=== PATIENT | male | born 1945 | race Caucasian/White ===

== ENCOUNTER 2021-01-20 08:45 | Outpatient (REF) | payer OTHER, SELFPAY ==
--- NOTE | ~2021-01-20 | XR_ITS ---
EXAMINATION: XR SHOULDER, RIGHT CLINICAL INFORMATION: Shoulder pain COMPARISON: None TECHNIQUE: Three views of the right shoulder. FINDINGS: No fracture or dislocation. The glenohumeral joint is well aligned. Mild joint space narrowing with small osteophytes present. The acromioclavicular joint appears intact. The visualized lung is clear. The visualized ribs are intact. 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
== END 2021-01-20 08:46 | disposition home or self-care (01) ==
LOC: HO.HOSX 08:45
PROVIDERS: Visit Provider Orthopaedic Surgery
DX: M19.011 Primary osteoarthritis, right shoulder (principal)
CPT/HCPCS: 20600; 20605; 73030; 99212; J1100

== ENCOUNTER 2025-06-04 08:57 | Outpatient (AMB) | payer OTHER, SELFPAY ==
--- OUTSIDE RECORDS SUMMARY | 2025-01-25 10:30 | XMS_ITS | Encounter Summary ---
Author Name [facility] [facility] [place] Address [address] [place] [id number] Care Team Providers Care Heat Treating Bluer Name Role Phone CHRIS SENA Primary Care [...] Name Patient's Relationship to Policy Multani [facility] (WNR) MEDICARE (M) [employer] (WNR) Nov 15, 2016 [id number] ADRIENNE PUENTES ON PATIENT [facility] (WNR) MEDICARE ADVANTAGE SD PPOD VALUE DB DS Nov 15, 2017 [id number] [phone] ADRIENNE PUENTES ON PATIENT Selected Encounter This section includes the information on record at [place] for the Encounter. Date/Time Encounter Type Encounter Description Reason Provider Source Jan 25, 2025 02:30 PM OFFICE O/P EST MOD 30 MIN DERMATOLOGY ICD-10-CM L21.8 Other seborrheic dermatitis VANCE WOMACK IHAnju Encounter Template Text not used by [facility] Assessments - Encounter Diagnoses This section includes the primary and secondary diagnoses documented for the Encounter. Date/Time Primary/Secondary Diagnosis Diagnosis Name Provider Source Jan 25, 2025 02:53 PM PRIMARY Other seborrheic dermatitis VANCE WOMACK [place] [facility] [place] [facility] Jan 25, 2025 02:53 PM SECONDARY Psoriasis vulgaris VANCE WOMACK [facility] [place] [facility] Plan of Treatment: Future Appointments (+ 6 months) and Future Tests (+/- 45 days) The Plan of Treatment section includes future care activities for the [facility] This section includes future appointments and future orders which are active, pending or scheduled. Future Appointments This section includes appointments that were scheduled to occur 6 months from the date of the Encounter, up to a maximum of 20 appointments. The data comes from all [place] treatment facilities. Appointment Date/Time Appointment Type Appointme nt Facility Name Feb 13, 2025 01:00 PM AMBULATORY - MEDICINE [facility] Feb 22, 2025 08:30 AM AMBULATORY - MEDICINE [place] [facility] [place] [facility] Mar 02, 2025 01:00 PM AMBULATORY - MEDICINE [place] [facility] [place] [facility] Mar 06, 2025 03:00 PM AMBULATORY - PSYCHIATRY [facility] March 16, 2025 11:30 AM AMBULATORY - MEDICINE [facility] April 03, 2025 09:00 AM AMBULATORY - NONE [place] [facility] [place] [facility] Apr 17, 2025 03:00 PM AMBULATORY - PSYCHIATRY [facility] May 01, 2025 08:00 AM AMBULATORY - MEDICINE [place] [facility] [place] [facility] Jun 04, 2025 09:00 AM AMBULATORY - MEDICINE [place] [facility] [place] [facility] Jul 12, 2025 11:30 AM AMBULATORY - MEDICINE [place] [facility] [place] [facility] Jul 20, 2025 09:30 AM AMBULATORY - MEDICINE [facility] Lab Results: +/- 30 days of the encounter This section includes the Chemistry and Hematology Lab Results on record with [place] for the patient. Radiology Reports and Pathology Reports are provided separately, in subsequent sections. Lab Results This section contains the Chemistry/Hematology Results that were resulted 30 days before or 30 daysafter the date of the Encounter. Date/Time Source Result Type Result - Unit Interpretation Reference Range Specimen Type Comment Feb 13, 2025 01:48 PM [place] VITAMIN D (25-OH) SERUM Specimen Type : SERUM No comment entered. Ordering Provider: GARRICK STINSON Report Released Date/Time: Feb 13, 2025 01:44 PM Reporting Lab: [address] [address] Performing Lab: [address] [address] VITAMIN D (25-OH) 44 ng/mL 20-50 Feb 13, 2025 01:48 PM [place] BASIC METABOLIC PANEL (non-fasting) SERUM Specimen Type: SERUM No comment entered. Ordering Provider: GARRICK STINSON Report Released Date/Time: Feb 13, 2025 01:44 PM Reporting Lab: [address] [address] Performing Lab: [address] [address] [facility] NITROGEN 14 mg/dL 7-25 GLUCOSE 298 mg/dL H 65-100 SODIUM 136 mmol/L 135-145 POTASSIUM 4.7 mmol/L 3.5-5.0 CHLORIDE 105 mmol/L 100-110 CO2 23 meq/L 20-30 CALCIUM 9.1 mg/dL 8.5-10.2 CREATININE, Serum 0.70 mg/dL 0.50-1.40 eGFR(CKD-EPI 2020) >90 mL/min >60 Feb 13, 2025 01:48 PM [place] LIPID PANEL, NON FASTING SERUM Specim en Type: SERUM No comment entered. Ordering Provider: GARRICK STINSON Report Released Date/Time: Feb 13, 2025 01:44 PM Reporting Lab: [address] [phone] Performing Lab: [address] [address] CHOLESTEROL 106 mg/dL TRIGLYCERIDE 124 mg/dL 0-150 LDL calculated 35 mg/dL 0-129 CHOL/HDL 2.3 HDL CHOLESTEROL 46 mg/dL 40-60 Feb 13, 2025 01:48 PM [place] MICROALBUMIN CREATININE RATIO PANEL URINE Specimen Type: URINE No comment entered. Ordering Provider: GARRICK STINSON Report Released Date/Time: Feb 13, 2025 01:44 PM Reporting Lab: [facility] [address] [address] Performing Lab: [facility] [address] [address] MICROALBUMIN/CREATININE RATIO 54.1 mg/g H 0-29.9 MICROALBUMIN,QUANTITATIVE 3.8 mg/dL RR U [place] CREATININE URINE 70.21 mg/dL Feb 13, 2025 01:48 PM [place] TSH SERUM Sp ecimen Type: SERUM No comment entered. Ordering Provider: GARRICK STINSON Report Released Date/Time: Feb 13, 2025 01:44 PM Reporting Lab: [facility] [address] [address] Performing Lab: [address] [address] TSH 0.54 u[IU]/mL 0.35-5.00 Feb 13, 2025 01:48 PM [place] HEMOGLOBIN A1C PANEL BLOOD Specimen T ype: [...] Feb 13, 2025 01:44 PM Reporting Lab: [address] [address] Performing Lab: [address] [address] HEMOGLOBIN A1C 6.8 H 4.0-5.6 Feb 13, 2025 01:48 PM [place] LIVER FUNCTION SERUM Specimen Type: SERUM No comment entered. Ordering Provider: GARRICK STINSON Report Released Date/Time: Feb 13, 2025 01:44 PM Reporting Lab: [address] [address] Performing Lab: [address] [address] PROTEIN,TOTAL 7.1 g/dL 6.0-8.3 ALBUMIN 3.7 g/dL 3.5-5.0 ALKALINE PHOSPHATASE 123 U/L 40-150 AST 17 U/L 5-34 ALT 28 U/L BILIRUBIN, TOTAL 0.5 mg/dL 0.2-1.2 Feb 13, 2025 01:48 PM [place] CBC AND DIFF (AUTO) BLOOD Specimen Ty pe: BLOOD No comment entered. Ordering Provider: GARRICK STINSON Report Released Date/Time: Feb 13, 2025 01:44 PM Reporting Lab: [facility] [address] [facility] [address] Performing Lab: [facility] [address] [facility] [address] WBC 8.54 10*3/uL 4.50-11.00 RBC 4.83 10*6/uL [...] and tobacco- related health factors from the [place] facility where the Encounter took place. Current Smoking Status This section includes the most current smoking, or tobacco-related health factor, from the [place] facility where the Encounter took place. Date/Time Current Smoking Status Comment Facil ity Aug 13, 2023 11:00 AM VA-TOBACCO FORMER USER [facility] Tobacco Use History This section includes a history of the smoking, or tobacco-related health factors, that were collected on or before the date of the Encounter. The data comes from the [place] facility where the Encounter took place. Date/Time Smoking Status/Tobacco Use Comment F acility Aug 13, 2023 11:00 AM [place]-TOBACCO QUIT 15 YRS OR MORE [facility] Encounter Notes: All associated encounter notes This section contains the clinical notes associated to the Encounter. Date/Time Encounter Note(s) Provider Source Jan 25, 2025 02:26 PM DERMATOLOGY OUTPATIENT NOTE: LOCAL TITLE: DERMATOLOGY CLINIC NOTE STANDARD TITLE: DERMATOLOGY OUTPATIENT NOTE DATE OF NOTE: JAN 25, 2025@14:26 ENTRY DATE: JAN 25, 2025@14:26:16 AUTHOR: JACOBO WOMACK EXP COSIGNER: URGENCY: STATUS: COMPLETED JAN 25, 2025 ANALILIA PUENTES Aug 79 PATIENT PHONE - Patient here for FOLLOW UP CHIEF COMPLAINT: Psoriasis, Seborrheic Dermatitis HPI: Reviewed records from last Dermatology visit: 05/11/23; PsO stable w/prn betamethaone; [facility] stable w/keto 2% cream and prn desonide 0.05% cream. reports redness and scaling on nasolabial folds. He reports some improvement with use of desonide. denies any other new/changing/bleeding/non-heali ng lesions. REVIEW OF SYSTEMS: Constitutional-neg Skin/Hair/Nails-see HPI DermHx: -Denies h/o MM or NMSC -PsO - on topicals Family Hx: Denies known fam h/o MM PastMedHx: Reviewed. History of Sun Exposure/Sunburns: Yes, none blistering Active Outpatient Medications (including Supplies): Active Outpatient Medications Status 1) ACCU-CHEK GUIDE (GLUCOSE) TEST STRIP USE 1 STRIP TO TEST ACTIVE BLOOD SUGARS THREE TIMES A DAY 2) BRIEF,PROTECTION PLUS LARGE #[id number] USE ONE BRIEF ACTIVE (S) DIRECTED SIX TIMES A DAY 3) BRIEF,PROTECTIVE SUPER ABS LG ATTENDS USE 1 BRIEF ACTIVE DIRECTED SIX TIMES A DAY Indication: URINARY AND BOWEL INCONTINENCE 4) CARBOXYMETHYLCELLULOSE NA 0.5% OPH SOLN INSTILL 1 DROP INTO ACTIVE EACH EYE FOUR TIMES DAILY NEEDED Indication: FOR DRY EYE 5) DESONIDE 0.05% CREAM APPLY A SMALL AMOUNT TOPICALLY TWICE ACTIVE DAILY NEEDED FOR FACIAL RASH. MAXIMUM OF 14 DAYS A MONTH Indication: FOR SKIN INFLAMMATION 6) DICLOFENAC NA 1% TOP GEL APPLY 2 GRAMS TOPICALLY FOUR TIMES ACTIVE DAILY NEEDED FOR OSTEOARTHRITIS - USE DOSING CARD PROVIDED IN BOX 7) DIVALPROEX 500MG 24HR (ER) SA TAB TAKE ONE TABLET BY MOUTH ACTIVE TWICE DAILY Indication: FOR BIPOLAR DISORDER 8) INCONT LINER DEPEND GUARDS USE 1 PAD TOPICALLY THREE TIMES ACTIVE DAILY NEEDED Indication: INCONTINENCE 9) INSULIN SYRINGE 1ML 31G 8MM USE 1 SYRINGE FOUR TIMES A DAY ACTIVE FOR INSULIN INJECTIONS 10) INSULIN,ASPART,HUMAN 100 UNIT/ML INJ INJECT 10 UNITS ACTIVE SUBCUTANEOUSLY EVERY MORNING AND INJECT 10 UNITS ONCE DAILY AT LUNCH AND INJECT 16 UNITS EVERY EVENING BEFORE SUPPER 11) INSULIN,GLARGINE,HUMAN 100 UNIT/ML INJ INJECT 30 UNITS ACTIVE SUBCUTANEOUSLY ONCE DAILY 12) LANCET,SOFTCLIX DEVICE USE DEVICE DIRECTED BY PROVIDER ACTIVE Indication: DIABETES 13) LANCET,SOFTCLIX USE 1 LANCET DIRECTED THREE TIMES A DAY ACTIVE TO TEST BLOOD SUGAR Indication: DIABETES 14) LISINOPRIL 20MG TAB TAKE ONE TABLET BY MOUTH ONCE DAILY TO ACTIVE CONTROL BLOOD PRESSURE 15) NEEDLE,PEN 31G,5MM USE 1 NEEDLE SUBCUTANEOUSLY FOUR TIMES A ACTIVE DAY FOR USE WITH PEN DEVICE 16) OMEPRAZOLE 20MG EC CAP TAKE TWO CAPSULES BY MOUTH EVERY ACTIVE MORNING 30 MINUTES BEFORE BREAKFAST Active Non-VA Medications Status 1) Non-VA ASPIRIN 81MG EC TAB 81MG BY MOUTH ONCE DAILY ACTIVE 2) Non-VA CINNAMON CAP/TAB BY MOUTH ACTIVE 3) Non-VA CYANOCOBALAMIN TAB BY MOUTH ACTIVE 4) Non-VA MAGNESIUM OXIDE TAB BY MOUTH ACTIVE 5) Non-VA MULTIVITAMIN/MINERALS CAP/TAB 1 TABLET BY MOUTH ONCE ACTIVE DAILY 6) Non-VA TURMERIC CAP/TAB BY MOUTH ACTIVE 7) Non-VA VITAMIN D3 (CHOLECALCIFEROL) TAB BY MOUTH ACTIVE 23 Total Medications PHYSICAL EXAM: [place] Skintype II General-AxOx3, NAD, pleasant, breathing unlabored, speech clear Limited cutaneous examination, as permitted by the patient, including scalp, face, eyes, ears, neck, arms, hands, fingers Pertinent findings per below: -psoriasiform hyperpipgmented well-demarcated plaques with micaceous scale noted to bialteral elbows, L>R -no psoriatic nail changes noted -mild erythema and thick white scaling noted to nasolabial folds and chin Diagnosis/Plan: #[facility] -Location: nasolabial folds, chin -Will renew topical keto 2% cream -CONTINUE desonide 0.05% cream prn, max 14d/m --Application instructions discussed --Risks/benefits/alternatives discussed --Side effects including but not limited to thinning of the skin (atrophy), lightening (hypopigmentation), increased appearance of superficial blood vessels (telangiectasias) and stretch smith discussed. #PsO -Location: bilat elbows -Chronic, stable -CONTINUE topical betamethasone as directed RTC 1 yr, sooner PRN * educated to RTC sylvie if any new, changing, symptomatic lesions. * Education on sun protection and avoidance strategies was provided. * Differential diagnosis, prescription options and risks/benefits were discussed with the patient, who consented to treatment plan. * [place] consented to photography for documentation if indicated. * A dermatoscope was used during the exam. * NUB = Neoplasm of Uncertain Behavior of Skin * NMSC = Nonmelanoma Skin Cancer * AK = Actinic Keratosis ------TIME ESTIMATION To include but not limied to: -Review of medical records -Time spent with patient including obtaining history, physical exam, shared decision making, procedures and counseling -Post visit documentation; HPI and physical exam findings, clinical researching, medical decision making, medication and lab ordering Total estimated time = 30 min -- Medication Reconciliation: Outpatient: Has the patient been taking medications as documented in the EMLR? YES: The patient has been taking medications as documented in the EMLR. Essential Medication List for Review used to complete this medication reconciliation. INCLUDED IN THIS LIST: Alphabetical list of active outpatient prescriptions dispensed from this [place] (local) and dispensed from another [place] or [facility] facility (remote) as well as inpatient orders (local, pending and active), local clinic medications, locally documented non-VA medications, and local prescriptions that have or been discontinued in the past 90 days. - All changes in medications, including all non-VA/Herbal/OTC medications were entered into CPRS. - If there were any medications the patient should no longer take, they were discontinued. - The patient/caregiver was instructed to update this list, discard old lists, and take this list to the next appointment, whether with a VA or non-VA provider. JLV Link Data on this list may not be complete. Please check JLV. Allergies/ADRs (Tool #5) FACILITY ALLERGY/ADR -------- [facility] [place] [facility] No Known Allergies [facility] NO KNOWN ALLERGIES Med [facility] NoGloary (Tool #1) INCLUDED IN THIS LIST: Alphabetical list of active outpatient prescriptions dispensed from this [place] (local) and dispensed from another [place] or [facility] facility (remote) as well as inpatient orders (local pending and active), local clinic medications, locally documented non-VA medications, and local prescriptions that have or been discontinued in the past 90 days. Non-VA Meds Last Documented On: Dec 23, 2021 NOTE The display of VA prescriptions dispensed from another [place] or [facility] facility (remote) is limited to active outpatient prescription entries matched to National Drug File at the originating site and may not include some items such as investigational drugs, compounds, etc. NOT INCLUDED IN THIS LIST: Medications self-entered by the patient into personal health records (i.e. tritrue) are NOT included in this list. Non-VA medications documented outside this [place], remote inpatient orders (regardless of status) and remote clinic medications are NOT included in this list. The patient and provider must always discuss medications the patient is taking, regardless of where the medication was dispensed or obtained. Non-VA ASPIRIN 81MG EC TAB TAKE ONE TABLET BY MOUTH ONCE DAILY OUTPT CARBOXYMETHYLCELLULOSE NA 0.5% OPH SOLN (Status = Active) INSTILL 1 DROP INTO EACH EYE FOUR TIMES DAILY NEEDED FOR DRY EYE Rx# [id number] Last Released: 09/02/24 Qty/Days Supply: 45 Rx Expiration Date: 06/20/25 Refills Remainin Indication: FOR DRY EYE Non-VA CINNAMON CAP/TAB TAKE BY MOUTH Non-VA CYANOCOBALAMIN TAB TAKE BY MOUTH Medication prescribed by Non-VA provider. OUTPT DESONIDE 0.05% CREAM (Status = Active) APPLY A SMALL AMOUNT TOPICALLY TWICE DAILY NEEDED FOR FACIAL RASH. MAXIMUM OF 14 DAYS A MONTH Rx# [id number] Last Released: 01/04/25 Qty/Days Supply: 60/30 Rx Expiration Date: 12/29/25 Refills Remainin Indication: FOR SKIN INFLAMMATION OUTPT DICLOFENAC NA 1% TOP GEL (Status = Discontinued) APPLY 2 GRAMS TOPICALLY FOUR TIMES DAILY NEEDED FOR OSTEOARTHRITIS - USE DOSING CARD PROVIDED IN BOX Rx# [id number] Last Released: 10/27/24 Qty/Days Supply: 100 Rx Expiration Date: 04/20/25 Refills Remainin OUTPT DICLOFENAC NA 1% TOP GEL (Status = Active) APPLY 2 GRAMS TOPICALLY FOUR TIMES DAILY NEEDED FOR OSTEOARTHRITIS - USE DOSING CARD PROVIDED IN BOX Rx# [id number] Last Released: 01/13/25 Qty/Days Supply: Rx Expiration Date: 12/07/25 Refills Remainin OUTPT DIVALPROEX 500MG 24HR (ER) SA TAB (Status = Active) TAKE ONE TABLET BY MOUTH TWICE DAILY FOR BIPOLAR DISORDER Rx# [id number] Last Released: 12/01/24 Qty/Days Supply: Rx Expiration Date: 06/21/25 Refills Remainin Indication: FOR BIPOLAR DISORDER OUTPT INSULIN,ASPART,HUMAN 100 UNIT/ML INJ (Status = Discontinued) INJECT 10 UNITS SUBCUTANEOUSLY EVERY MORNING AND INJECT 10 UNITS ONCE DAILY AT LUNCH AND INJECT 16 UNITS EVERY EVENING BEFORE SUPPER Rx# [id number] Last Released: 09/14/24 Qty/Days Supply: Rx Expiration Date: 03/27/25 Refills Remainin OUTPT INSULIN,ASPART,HUMAN 100 UNIT/ML INJ (Status = Active) INJECT 10 UNITS SUBCUTANEOUSLY EVERY MORNING AND INJECT 10 UNITS ONCE DAILY AT LUNCH AND INJECT 16 UNITS EVERY EVENING BEFORE SUPPER Rx# [id number] Last Released: 12/11/24 Qty/Days Supply: Rx Expiration Date: 12/07/25 Refills Remainin OUTPT INSULIN,GLARGINE,HUMAN 100 UNIT/ML INJ (Status = Active) INJECT 30 UNITS SUBCUTANEOUSLY ONCE DAILY Rx# [id number] Last Released: 01/17/25 Qty/Days Supply: Rx Expiration Date: 04/11/25 Refills Remainin OUTPT INSULIN,GLARGINE-YFGN 100UNIT/ML INJ (Status = Discontinued) INJECT 30 UNITS SUBCUTANEOUSLY ONCE DAILY Rx# [id number] Last Released: 09/14/24 Qty/Days Supply: Rx Expiration Date: 04/20/25 Refills Remainin OUTPT LISINOPRIL 20MG TAB (Status = Discontinued) TAKE ONE TABLET BY MOUTH ONCE DAILY TO CONTROL BLOOD PRESSURE Rx# [id number] Last Released: 08/25/24 Qty/Days Supply: 90/90 Rx Expiration Date: 12/16/24 Refills Remainin OUTPT LISINOPRIL 20MG TAB (Status = Active) TAKE ONE TABLET BY MOUTH ONCE DAILY TO CONTROL BLOOD PRESSURE Rx# [id number] Last Released: 12/07/24 Qty/Days Supply: 90/90 Rx Expiration Date: 12/07/25 Refills Remainin Non-VA MAGNESIUM OXIDE TAB TAKE BY MOUTH Medication prescribed by Non-VA provider. Non-VA MULTIVITAMIN/MINERALS CAP/TAB TAKE ONE TABLET BY MOUTH ONCE DAILY Medication prescribed by Non-VA provider. OUTPT OMEPRAZOLE 20MG EC CAP (Status = Active) TAKE TWO CAPSULES BY MOUTH EVERY MORNING 30 MINUTES BEFORE BREAKFAST Rx# [id number] Last Released: 12/01/24 Qty/Days Supply: 60/30 Rx Expiration Date: 11/22/25 Refills Remainin Non-VA TURMERIC CAP/TAB TAKE BY MOUTH Medication prescribed by Non-VA provider. Non-VA VITAMIN D3 (CHOLECALCIFEROL) TAB TAKE BY MOUTH Medication prescribed by Non-VA provider. SUPPLIES OUTPT ACCU-CHEK GUIDE (GLUCOSE) TEST STRIP (Status = Active) USE 1 STRIP TO TEST BLOOD SUGARS THREE TIMES A DAY Rx# [id number] Last Released: 07/20/24 Qty/Days Supply: 300/90 Rx Expiration Date: 07/12/25 Refills Remainin OUTPT BRIEF,PROTECTION PLUS LARGE #[id number] (Status = Active/Suspended) USE ONE BRIEF DIRECTED SIX TIMES A DAY Rx# [id number] Last Released: 09/23/24 Qty/Days Supply: 21630 Rx Expiration Date: 04/20/25 Refills Remainin OUTPT BRIEF,PROTECTIVE SUPER ABS LG ATTENDS (Status = Active) USE 1 BRIEF DIRECTED SIX TIMES A DAY URINARY AND BOWEL INCONTINENCE Rx# [id number] Last Released: 01/09/25 Qty/Days Supply: 216/90 Rx Expiration Date: 01/08/26 Refills Remainin Indication: URINARY AND BOWEL INCONTINENCE OUTPT INCONT LINER DEPEND GUARDS (Status = Active) USE 1 PAD TOPICALLY THREE TIMES DAILY NEEDED INCONTINENCE Rx# [id number] Last Released: 04/21/24 Qty/Days Supply: 312/90 Rx Expiration Date: 04/20/25 Refills Remainin Indication: INCONTINENCE OUTPT INSULIN SYRINGE 1ML 31G 8MM (Status = Active) USE 1 SYRINGE FOUR TIMES A DAY FOR INSULIN INJECTIONS Rx# [id number] Last Released: 12/14/24 Qty/Days Supply: 300/75 Rx Expiration Date: 02/27/25 Refills Remainin OUTPT LANCET,SOFTCLIX (Status = Active) USE 1 LANCET DIRECTED THREE TIMES A DAY TO TEST BLOOD SUGAR Rx# [id number] Last Released: 11/27/24 Qty/Days Supply: 300/90 Rx Expiration Date: 11/28/25 Refills Remainin Indication: DIABETES OUTPT LANCET,SOFTCLIX DEVICE (Status = Active) USE DEVICE DIRECTED BY PROVIDER Rx# [id number] Last Released: 11/27/24 Qty/Days Supply: 1 Rx Expiration Date: 02/25/25 Refills Remainin Indication: DIABETES OUTPT NEEDLE,PEN 31G,5MM (Status = Active) USE 1 NEEDLE SUBCUTANEOUSLY FOUR TIMES A DAY FOR USE WITH PEN DEVICE Rx# [id number] Last Released: 09/22/24 Qty/Days Supply: 400/90 Rx Expiration Date: 09/11/25 Refills Remainin /davon/ JACOBO WOMACK DNP, BOTTOMING MACHINE OPERATOR-C NURSE PRACTITIONER Signed: 01/25/2025 14:53 JACOBO WOMACK [place] [facility]
--- NOTE | 2025-06-04 09:01 | MHC.OFFVIS ---
Vital Signs 06/04/25 09:04 Height 5 ft 8 in Weight 185 lb 10.067 oz BMI 28.2 BP 130/70 Blood Pressure Location Lt brachial Position Sitting Pulse 89 Pulse Source Monitor Intake Visit Reasons: STUDENT FINANCE SPECIALIST/ [facility]/ arrhythmias/palpitations/htn Bumper Straightener Required: No Accompanied by: Self / Same As Patient Allergies No Known Allergies Allergy (Verified 01/20/21 10:36) Medication List - Last Reconciled 06/04/25 by Herson Ledesma MD aspirin (Adult Low Dose Aspirin) 81 mg PO DAILY atorvastatin 10 mg PO DAILY divalproex 500 mg PO ONCE insulin glargine (Lantus Solostar U-100 Insulin) 30 units subcut QPM lisinopril 2.5 mg PO DAILY HPI Comments Details: Thank you for referring Bernardino in cardiology consultation today for palpitations. He is 79-year-old male with prior history of cardiac arrhythmias reported as frequent PACs and PVCs by prior Holter with no significant other cardiac issues. However he he said he was told because of his palpitations in the past to pursue vagal maneuvers which has been working for him. Over the last few months he has been having increasing symptoms of palpitations. These are sporadic and can last up to 10-15 minutes and the bother him. They do respond to vagal maneuvers. However he wanted to see a tire repairman and was referred here for further evaluation. He has no prior history of coronary artery disease, however last stress test was more than 10 years ago. He has no prior history of congestive heart failure. No recent workup from that perspective. Does have insulin-requiring diabetes as well as hyperlipidemia for which she takes medications. He said he does get exertional short of breath but he is able to pursue his activity of daily living without much limitations. He denies any orthopnea, PND, leg edema. Denies any lightheadedness, syncope. Denies any skipped heartbeats. Denies any exertional chest pain. [facility] Medical History Hernia Hypertension Anxiety High cholesterol Family History Mother No problems noted. Social History Alcohol intake: never Patient Tobacco Use Status: Never used Tobacco Current occupational status: retired Review of Systems Const Denies chills, Denies fatigue, Denies fever(s), Denies frequent falls, Denies weakness, Denies weight gain and Denies weight loss ENT Denies dizziness Card Denies chest pain, Denies leg edema, Denies lightheadedness, Reports palpitations, Reports dyspnea, Denies dyspnea on exertion and Denies orthopnea Resp Denies cough, Reports dyspnea and Denies dyspnea on exertion GI Denies bloating and Denies change in bowel habits Musc Denies muscle weakness, Denies numbness and Denies tingling Neuro Denies dizziness, Denies frequent falls, Denies numbness, Denies tingling and Denies weakness Endo Denies fatigue and Reports palpitations Physical Exam Vital Signs: Last Vital Signs Pulse 89 06/04/25 09:04 BP 130/70 06/04/25 09:04 BMI result Body Mass Index 28.2 Const General: cooperative, comfortable, no acute distress, alert and awake Nutritional Appearance: overweight Orientation/consciousness: patient oriented x3 Limitations: no limitations HEENT Head: Yes normocephalic and Yes atraumatic Neck Neck: Yes trachea midline, Yes supple and Yes no JVD Resp Effort & Inspection: normal respiratory effort Auscultation: clear to auscultation bilaterally Cardio Jugular venous distension: no JVD Palpation: normal PMI Rate: regular rate Rhythm: regular rhythm Heart sounds: S1 normal heart sound present, S2 normal heart sound present, no click, no gallops and no murmurs GI Auscultation: normal bowel sounds Skin General skin exam: no rashes or lesions noted Neuro General: patient oriented x3 and no focal motor deficits Extrem General: Yes no clubbing, cyanosis or edema Psych Appearance: grossly normal Office Procedures EKG Details: EKG shows normal sinus rhythm with first-degree AV block with intermittent left bundle-branch block with isolated Q-waves which is prominent lead 3 which could suggest possible inferior infarct on non aberrant beats [id number], Complete Assessment & Plan Assessment & Plan (1) Short of breath on exertion: Code(s): R06.02 - Shortness of breath Category: Medical Plan: Elderly man with exertional shortness with multiple risk factors intermittent left bundle-branch block. Need to rule out obstructive coronary artery disease as a potential cause. Given his intermittent left bundle-branch block will suggest vasodilating myocardial perfusion imaging to assess for significant myocardial ischemia. These tests will be performed in near future. Also suggest echocardiogram to evaluate for LV systolic and diastolic function to evaluate further cardiac abnormalities. This was discussed with him. He is agreeable to pursue the same. (2) Palpitations: Code(s): R00.2 - Palpitations Category: Medical Plan: Symptoms of palpitation which is sporadic and intermittent and last for 10-15 minutes which are highly suggestive of SVT. One of the Holter monitors many years ago suggested that he had SVT. He said about 7 8 years ago he had a radiofrequency ablation. I could not find the records of the same. Will continue to pursue to look for it. It appears that his symptoms are suggestive of recurrent SVT. We discussed about vagal maneuvers and mechanism of dual AV mason pathway leading to reentrant arrhythmias. He showed understanding. Continue metoprolol therapy. Avoidance of stimulants was discussed. Stress mitigation strategies were discussed. Would suggest a 14 day Holter monitor to assess for his symptoms. (3) Left bundle branch block: Code(s): I44.7 - Left bundle-branch block, unspecified Category: Medical Plan: Left bundle-branch block with intermittent left bundle-branch block on EKGs which is interesting. He has no prior history of left bundle-branch block. We discussed about mechanism left bundle-branch block. No specific therapy is recommended. Will need to rule out underlying structural heart disease as above. Follow up in the clinic after 2 months. Thank you for allowing me to partake in his care Coding Level of Care Code New Pt Level 4 (55429) Complex EM visit Add On G2211 Diagnoses Short of breath on exertion R06.02 Palpitations R00.2 Left bundle branch block I44.7 CPT Codes EKG - CPT: 09537-[id number], Complete ([id number])
[2025-06-04 09:04] VITALS: BP 130/70; PULSE 89; BMI 28.2
--- OUTSIDE RECORDS SUMMARY | 2025-06-04 09:08 | XMS_ITS | Clinical Summary ---
Author Organization [facility] Address [address] [address] Phone Care Team Providers Care Materials Planning Manager Name Role Phone Pcp, Unknown Primary Care Provider Unavailabl e Allergies No known active allergies Medications atorvastatin (LIPITOR) 80 MG tablet Take 80 mg by mouth every other day. Active diclofenac sodium (VOLTAREN) 1 % Gel Apply topically 4 (four) times a day. Active divalproex (DEPAKOTE ER) 500 MG ER 24 hr tablet Take 500 mg by mouth daily. Active insulin aspart U-100 (NOVOLOG) 100 unit/mL injection vial Inject under the skin 3 (three) times a day before meals. 10 units SQ every morning, 10 units SQ daily at lunch, 16 units SQ daily at supper Active insulin glargine (LANTUS) 100 unit/mL injection vial Inject 30 Units under the skin daily. Active lisinopril (PRINIVIL,ZESTRIL ) 20 MG tablet Take 20 mg by mouth daily. Active ketoconazole 2 % cream Apply topically daily. Apply thin layer topically to facial rash as needed Active terbinafine HCL (LAMISIL) 1 % cream Apply topically 2 (two) times a day. Active TURMERIC ORAL Take by mouth daily. Active cholecalciferol (VITAMIN D3) 400 unit tablet Take 400 Units by mouth daily. Active aspirin 81 MG EC tablet Take 81 mg by mouth daily. Active therapeutic multivitamin tablet Take 1 tablet by mouth daily. Active cinnamon bark 500 mg capsule Take 500 mg by mouth daily. Active magnesium oxide 250 mg (150 mg elemental) Tab Take 250 mg by mouth daily. Active cyanocobalamin, vitamin B-12, 100 MCG tablet Take 100 mcg by mouth daily. Active methenamine (HIPREX) 1 gram tablet Take 1 g by mouth 2 (two) times a day. 3 Active tolterodine (DETROL LA) 4 MG 24 hr capsule Take 4 mg by mouth daily. 3 Active betamethasone valerate 0.1 % cream Apply 1 application. topically 2 (two) times a day as needed. Active ferrous sulfate 325 mg (65 mg levelock iron) EC tablet Take 325 mg by mouth daily. Active PEG 400-propylene glycol (SYSTANE) 0.4-0.3 % Drop INSTILL 1 DROP INTO EACH EYE FOUR TIMES DAILY NEEDED 2 Active sucralfate (CARAFATE) 1 gram tablet Take 1 g by mouth 4 (four) times a day. For 21 days Active Social History Tobacco Use Types Packs/Day Years [...] ecorded Are you denied basic needs s [facility] as food, clothing, or medical care? No 12/15/2024 In the past 12 months have y ou been in a relationship with a person who hurts, threatens, or tries to control you? No 12/15/2024 Are you denied basic needs s [facility] as food, clothing, or medical care? No [...] Orientation Straight 12/15/2024 10 :56 PM EST Last Filed Vital Signs Vital Sign Reading Time Taken Comments Blood Pressure 145/72 12/16/2024 6:42 PM EST Pulse 67 12/16/2024 6:42 PM EST Temperature 36.7 C (98 F) 12/16/2024 6:42 PM EST Respiratory Rate 22 12/16/2024 6:42 PM EST Oxygen Saturation 100% 12/16/2024 6:42 PM EST Inhaled Oxygen Concentration - - Weight 83 kg (183 lb) 12/15/2024 1:38 PM EST Height 170.2 cm (5' 7 ) 12/15/2024 1:38 PM EST Body Mass Index 28.66 12/15/2024 1:38 PM EST Plan of Treatment Health Maintenance Due Date Last Done Comments LIPID PANEL 1944 VALPROIC ACID (DEPAKENE) LEVEL 1944 DEPRESSION SCREENING 1956 SMOKING Hx and SMOKELESS TOBACCO SCREENING 1957 PNEUMOCOCCAL VACCINES (50+ years) (1 of 1 - PCV) 1994 RSV VACCINE (1 - 1-dose 75+ series) 2019 COVID-19 VACCINE ( - 2023-2 5 season) 2024 CREATININE LEVEL 12/15/2025 12/15/2024, 03/29/2018 POTASSIUM LEVEL 12/15/2025 12/15/2024, 03/29/2018 Adult Td,Tdap Booster 05/21/2033 05/21/2023 ZOSTER VACCINES Completed 09/23/2020, 07/03/2020 HEPATITIS A VACCINES Aged Out No long er eligible based on patient's age to complete this topic HIB VACCINES Aged Out No longer eligi ble based on patient's age to complete this topic MENINGOCOCCAL VACCINES (ACWY) Aged Out No longer eligible based on patient's age to complete this topic MENINGOCOCCAL VACCINES (B) Aged Out N o longer eligible based on patient's age to complete this topic Medical Devices Not on file Procedures Procedure Name Priority Date/Time Associated Diagnosis Comments BASIC METABOLIC PANEL STAT 12/15/2024 3:10 PM EST from Last 3 Months or Most Recently Relevant to Health Maintenance Results * (ABNORMAL) Basic metabolic panel (12/15/2024 3:10 PM EST) SODIUM 130(L) 133 - 146 mmol/L [facility] CHLORIDE 94(L) 96 - 108 mmol/L [facility] POTASSIUM 3.9 3.3 - 5.1 mmol/L [facility] CO2 26 21 - 35 mmol/L [facility] BUN 8 6 - 19 mg/dL [facility] CREATININE 0.40(L) 0.5 - 1.5 mg/dL [facility] GLUCOSE 381(H) 70 - 99 mg/dL [facility] CALCIUM 8.6 8.4 - 10.3 mg/dL [facility] EGFR 110 >59 mL/min/1.7 3m2 [facility] Comment:Estimated glomerular filtration rate calculated using the CKD-EPI refit equation. ANION GAP 14 10 - 20 mmol/L [facility] Blood 12/15/2024 3:10 PM EST 12/15/2024 3:15 PM EST us Johnny Stout MD LAB BLOOD ORDERABLES Melody alvarenga Result [facility] [address] [place] [address] from Last 3 Months or Most Recently Relevant to Health Maintenance Insurance [place] BLUE REPLACEMENT [facility] MEDICARE PPO BLUE REPLACEMENT Member Subscriber Plan / Payer (Ef fective 2009-Present) Name:Anna Marie Ruckerdon Relation to Subscriber:Self Name:Anna Marie Ruckerdon Payer ID:[id number] (NAIC) Type:Medicare Address: [facility] [id number] [facility] MEDICARE PPO BLUE REPLACEMENT Member Subscriber Plan / Payer (Ef fective 2009-Present) Name:Anna Marie Ruckerdon Relation to Subscriber:Self Name:Anna Marie Ruckerdon Payer ID:[id number] (NAIC) Type:Medicare Address: [facility] [id number] [place] [address] MEDICARE PPO [address] [place] [address] [facility] MEDICARE PPO BLUE REPLACEMENT [facility] MEDICARE PPO BLUE REPLACEMENT [facility] MEDICARE PPO BLUE [place] [address] [facility] MEDICARE PPO BLUE REPLACEMENT [facility] MEDICARE PPO BLUE REPLACEMENT [facility] Care Teams Materials Planning Manager Relationship Specialty Start Date End Date Pcp, Unknown PCP - General 12/18/24 Additional Source Comments The information contained in this document represents components of the legal health record. It is not the complete legal health record.[facility]
--- OUTSIDE RECORDS SUMMARY | 2025-06-04 09:08 | XMS_ITS | Patient Health Record ---
Author Organization [facility] Address [address] [place] [address] Care Team Providers Care Alcohol Still Operator Name Role Phone Juan Padilla Unavailable [phone] Reason For Referral No Information Plan Of Treatment No Information
== END 2025-06-04 09:49 | disposition home or self-care (01) ==
LOC: HO.HCS 08:58
PROVIDERS: Referring Provider Internal Medicine Cardiovascular Disease; Visit Provider Internal Medicine Cardiovascular Disease
DX: R06.02 Shortness of breath (principal); R00.2 Palpitations; I44.7 Left bundle-branch block, unspecified
CPT/HCPCS: 93010; 99204; G2211

== ENCOUNTER → 2025-06-04 08:57 | Outpatient (BNVA) | payer OTHER, SELFPAY | PROVIDERS: Visit Provider Internal Medicine Cardiovascular Disease | DX: R00.2 Palpitations (principal); R06.02 Shortness of breath; I44.7 Left bundle-branch block, unspecified | CPT/HCPCS: 93005; 99202 ==

== ENCOUNTER → 2025-07-12 13:50 | Outpatient (REF) | payer OTHER, SELFPAY ==
--- OUTSIDE RECORDS SUMMARY | 2011-03-19 | XMS_ITS | Encounter Summary ---
Author Organization [facility] Address [address] [facility] [address] [place] [id number] Phone Care Team Providers Care Historiography Teacher Name Role Phone Unavailable Primary Care Provider Unavailabl e Reason for Visit * Auth/Cert (Routine) Specialty Diagnoses / Procedures Referred By Swapnil t Referred To Contact Referral ID Status Reason Start Date Expiration Date Visits Re quested Visits Authorized [id number] 1 1 Encounter Details Date Type Department Care Team (Late st Contact Info) Description 03/19/2011 Hospital Encounter [facility],Outside Imaging [address] [place], [place] [id number] Unknown, Unknown, MD Social History Tobacco Use Types Packs/Day Years Used Date Smoking Tobacco: Former Cigarettes Q uit: 1974 Smokeless Tobacco: Never Education Answer Date Recorded Are you interested in more education? Not on ty e 03/12/2023 Are you concerned about learning? Not on file 03/12/2023 No 03/12/2023 No 03/12/2023 Digital Access Answer Date Recorded No 04/12/2023 No 04/12/2023 No 04/12/2023 Reliable internet access at home? Not on file 04/12/2023 Device with a working camera? Not on file Intimate Partner Violence Answer Date R ecorded Are you denied basic needs s uch as food, clothing, or medical care? No 12/15/2024 In the past 12 months have y ou been in a relationship with a person who hurts, threatens, or tries to control you? No 12/15/2024 Are you denied basic needs s uch as food, clothing, or medical care? No 12/15/2024 In the past 12 months have y ou been in a relationship with a person who hurts, threatens, or tries to control you? No 12/15/2024 Sex and Gender Information Value Date Recorded Sex Assigned at Male 12/15/2024 1:39 PM EST Legal Sex Male 10:09 PM EDT Gender Identity Male 12/15/2024 1:39 PM EST Sexual Orientation Straight 12/15/2024 10 :56 PM EST documented as of this encounter Functional Status * Calculated C-SSRS Risk Score (Lifetime/Recent) Answer Date of Assessment Author No Risk Indicated 12/15/2024 1:39 PM Sofia Garvey RN * [place] Suicide Severity Rating Scale (Screener/Recent Self-Report) Question Answer Date of Assessment Author 1. Wish to be (Past 1 Month) No 12/15/2024 1:39 PM Sofia Garvey RN 2. Non-Specific Active Suici jaya Thoughts (Past 1 Month) No 12/15/2024 1:39 PM Jania Garvey RN 6. Suicidal Behavior (Lifetime) No 1:39 PM Sofia Garvey RN documented as of this encounter Plan of Treatment Not on file documented as of this encounter Procedures Procedure Name Priority Date/Time Associated Diagnosis Comments MRI UPPER EXTREMITY OUTSIDE (NO INTERPRETATION) Routine 03/19/2011 12:00 AM EDT documented in this encounter Results * MRI Outside Upper Extremity (No Interpretation) (03/19/2011 12:00 AM EDT) Narrative SYSTEMGENERATED, DOCUMENTATION - 12/15/2024 2:44 PM EST This study is for PACS storage only and not for interpretation. us Unknown Unknown MD LEMUS OUTSIDE IMAGING W/OUT INT ERPRETATION Final Result documented in this encounter Visit Diagnoses Not on filedocumented in this encounter Additional Health Concerns Infection Onset Date Last Indicated Resolved Time CoV-Risk 12/15/2024 12/15/2024 12/26/2024 1:24 AM EST documented as of this encounter Additional Source Comments The information contained in this document represents components of the legal health record. It is not the complete legal health record.[facility]
--- OUTSIDE RECORDS SUMMARY | 2024-09-05 10:32 | XMS_ITS ---
Author Name [facility] Address [address] [place] [address] Care Team Providers Care Boilermaker Welder Name Role Phone CHRIS SENA Primary Care Provider Unavailabl e Insurance Providers: All historical and current Section Date Range: From patient's date of to the date document was created. This section includes the names of all active insurance providers for the patient. Insurance Provider Type of Coverage Plan Name Start of Policy Coverage End of Policy Coverage Group Number Member ID Insurance Provider's Telephone Number Policy Multani's Name Patient's Relationship to Policy Multani [facility] (WNR) MEDICARE (M) [facility] (WNR) Nov 15, 2016 [id number] [phone] ADRIENNE PUENTES ON PATIENT [facility] (WNR) MEDICARE ADVANTAGE [place] PP[place] VALUE DB DS Nov 15, 2017 [id number] ADRIENNE PUENTES ON PATIENT Selected Encounter This section includes the information on record at [place] for the Encounter. Date/Time Encounter Type Encounter Description Reason Pro vider Source Sep 05, 2024 02:32 PM Outpatient Encounter ADMIN PAT ACTIVTIES (MASNONCT) I[facility] Encounter Template Text not used by [place] Plan of Treatment: Future Appointments (+ 6 months) and Future Tests (+/- 45 days) The Plan of Treatment section includes future care activities for the patient from all [facility] treatment[facility]ilities. This section includes future appointments and future orders which are active, pending or scheduled. Future Appointments This section includes appointments that were scheduled to occur 6 months from the date of the Encounter, up to a maximum of 20 appointments. The data comes from all [place] treatment facilities. Appointment Date/Time Appointment Type Appointme nt Facility Name Sep 14, 2024 01:00 PM [facility] [place] [facility] Sep 14, 2024 01:30 PM [facility] [place] [facility] Nov 01, 2024 01:30 PM [facility] [place] [facility] Nov 17, 2024 01:00 PM AMBULATORY - SURGERY [facility] [place] [facility] Dec 19, 2024 08:30 AM [facility] - MEDICINE [facility] Jan 17, 2025 02:30 PM AMBULATORY - NONE [facility] [place] [facility] Jan 25, 2025 02:30 PM [facility]UL[facility] MEDICINE [facility] [place] [facility] Feb 13, 2025 01:00 PM [facility] - MEDICINE [facility] Feb 22, 2025 08:30 AM [facility] MEDICINE [facility] [place] [facility] Mar 02, 2025 01:00 PM [facility]UL[facility]ORY - MEDICINE [facility] [place] [facility] Mar 06, 2025 03:00 PM AMBULATORY - PSYCHIATRY [facility] Lab Results: +/- 30 days of the encounter This section includes the Chemistry and Hematology Lab Results on record with [place] for the patient. Radiology Reports and Pathology Reports are provided separately, in subsequent sections. Lab Results This section contains the Chemistry/Hematology Results that were resulted 30 days before or 30 daysafter the date of the Encounter. Date/Time Source Result Type Result - Unit Interpretation Reference Range Specimen Type Comment Sep 14, 2024 01:38 PM [facility] [place] [facility] LYME SEROLOGY PANEL SERUM Specimen Type: SERUM Comment: The LYME SEROLOGY PANEL was performed using the FDA-approved Miguel Ángel [employer] Borrelia burdorferi modified two-tier test system. This modified methodology uses a second EIA in place of a western immunoblot assay, which the FDA has determined is substantially equivalent to or better than standard two-tier testing using western blot. Supplemental testing with a second EIA meets CDC guidelines for Lyme disease testing. Performance characteristics of the panel were validated at the [facility]. Results are considered positive only if the initial screening EIA is positive or equivocal, and either or both supplemental EIAs (for IgM and IgG) are positive. Diagnosis of Lyme disease should not be based solely on laboratory results. Clinical and exposure history must be considered. Positive antibody results reflect prior immunologic exposure, and do not necessarily indicate active infection. False positive results are possible in patients with other spirochetal infections, infectious mononucleosis, and connective tissue disorders. Negative results do not exclude B. burgdorferi infection. Only 10-40% of patients with erythema migrans alone have detectable antibodies. False negative results are possible, if specimens are drawn too soon after infection before an antibody response. Antibody induction may be aborted by early antibiotic therapy. Results in immunosuppressed individuals should be interpreted with caution. If Lyme disease is strongly suspected, but antibody was not detected, a second specimen collected about 2-4 weeks after the first should be tested. This test is NOT for use in screening individuals without signs, symptoms or exposure history. Physicians should report all cases of Lyme disease to their state and local health departments, if applicable. Ordering Provider: SHAUNNA MCDERMOTT Report Released Date/Time: Sep 14, 2024 01:22 PM Reporting Lab: [address] [address] Performing Lab: [address] [address] TIER 1 LYME SCREENING EIA Negative Negat joyce LYME AB FINAL INTERPRETATION Negative Ne gative Sep 14, 2024 01:38 PM [facility] CBC AND DIFF (AUTO) BLOOD Specimen Type: BLOO D No comment entered. Ordering Provider: SHAUNNA MCDERMOTT Report Released Date/Time: Sep 14, 2024 01:22 PM Reporting Lab: [address] [address] Performing Lab: [address] [address] WBC 5.55 10*3/uL 4.50-11.00 RBC 4.50 10*6/uL 4.23-5.66 HGB 13.2 g/dL 12.8-17 HCT 38.4 L 39.2-50.4 MCV 85.3 fL 82-99 MCHC 34.4 g/dL 30.8-35.1 PLT 238 10*3/uL 140-360 RDW-CV 13.3 12.0-16.0 MONO, ABS 0.34 10*3/uL 0.30-1.10 MCH 29.3 pg 26.2-32.6 NEUT % 80.3 H 43.7-75.8 LYMPH % 12.6 L 14.0-42.3 MONO % 6.1 5.1-13.7 EOS % 0.2 L 0.4-6.8 BASO % 0.4 0.1-2.0 NEUT, ABS 4.46 10*3/uL 2.20-7.60 LYMPH, ABS 0.70 10*3/uL L 1.00-3.20 EOS, ABS 0.01 10*3/uL L 0.03-0.44 BASO, ABS 0.02 10*3/uL 0.01-0.13 IMMATURE GRAN % 0.4 0.0-0.7 IMMATURE GRAN, ABS 0.02 10*3/uL 0.00-0.0 6 NRBC % 0.0 0.0-0.0 NRBC, ABS 0.00 10*3/uL 0.00-0.00 Sep 14, 2024 01:38 PM [place] HEMOGLOBIN A1C PANEL BLOOD Specimen T ype: BLOOD Comment: Values obtained from A1C measurements can vary. For atypical A1C assays, a reported value of 7.0 could actually be between 6.72 and 7.28 if measured by a reference method. A reported value of 9.0 could actually be between 8.73 and 9.27. Ref: http://www.ngsp.org/CAPdata.asp Ordering Provider: DIONTE ADDISON Report Released Date/Time: Apr 19, 2024 01:34 PM Reporting Lab: [address] [address] Performing Lab: [address] [id number] HEMOGLOBIN A1C 7.9 H 4.0-5.6 Social History: Smoking Status (Most current) and Tobacco Use (All prior to encounter date) This section includes the most current, and the historical, smoking and tobacco- related health factors from the [place] facility where the Encounter took place. Current Smoking Status This section includes the most current smoking, or tobacco-related health factor, from the [place] facility where the Encounter took place. Date/Time Current Smoking Status Comment Facil ity Aug 13, 2023 11:00 AM [place]-TOBACCO FORMER USER [facility] Tobacco Use History This section includes a history of the smoking, or tobacco-related health factors, that were collected on or before the date of the Encounter. The data comes from the [place] facility where the Encounter took place. Date/Time Smoking Status/Tobacco Use Comment F acility Aug 13, 2023 11:00 AM [place]-TOBACCO QUIT 15 YRS OR MORE [facility] Encounter Notes: All associated encounter notes This section contains the clinical notes associated to the Encounter. Date/Time Encounter Note(s) Provider Source Sep 05, 2024 02:32 PM PHARMACY NOTE: LOCAL TITLE: PHARMACY CUSTOMER CARE MEDICATION RENEWAL STANDARD TITLE: PHARMACY NOTE DATE OF NOTE: SEP 05, 2024@14:32 ENTRY DATE: SEP 05, 2024@14:32:23 AUTHOR: AGUSTIN FLOWERS EXP COSIGNER: URGENCY: STATUS: COMPLETED Date: Aug Division: [place] Pt referred by Pharmacy Call Center for medication renewal: Non-controlled/maintenance medication Medications requested: [id number] NEEDLE,PEN 31G,8MM Defer to primary care provider To be mailed . Please review and renew if appropriate. *This note was generated by [facility]/[place] [facility] Customer Care. If you have any questions or need assistance, do not contact this author. Please refer all questions to your local, on-site pharmacy departments. /davon/ AGUSTIN FLOWERS [facility] Signed: 09/05/2024 14:32 Receipt Acknowledged By: 09/10/2024 15:19 /davon/ GARRICK STINSON NP NURSE PRACTITIONER 09/05/2024 14:37 /davon/ JOSÉ MIGUEL AVILA, EVA REGISTERED NURSE AGUSTIN FLOWERS [facility]
--- OUTSIDE RECORDS SUMMARY | 2024-09-14 09:30 | XMS_ITS ---
Author Name [facility] [place] Address [address] [place] [id number] Care Team Providers Care Bilingual Teacher Aide Name Role Phone CHRIS SENA Primary Care [...] Name Patient's Relationship to Policy Multani [facility] (WNR) MEDICARE (M) [facility] (WNR) Nov 15, 2016 [id number] [phone] ADRIENNE PUENTES ON PATIENT [facility] (WNR) MEDICARE ADVANTAGE [place] PPOD VALUE DB DS Nov 15, 2017 [id number] ADRIENNE PUENTES ON PATIENT Selected Encounter This section includes the information on record at [place] for the Encounter. Date/Time Encounter Type Encounter Description Reason Provider Source Sep 14, 2024 01:30 PM OFFICE O/P EST LOW 20 MIN PRIMARY CARE/MEDICINE ICD-10-CM S30.861A Insect bite (nonvenomous) of abdominal wall, init SHAUNNA Parks Anju Encounter Template Text not used by [facility] Assessments - Encounter Diagnoses This section includes the primary and secondary diagnoses documented for the Encounter. Date/Time Primary/Secondary Diagnosis Diagnosis Name Provider Source Sep 14, 2024 01:33 PM PRIMARY Insect bite (nonvenomous) of abdominal wall, init SHAUNNA Parks [facility] Plan of Treatment: Future Appointments (+ 6 months) and Future Tests (+/- 45 days) The Plan of Treatment section includes future care activities for the patient from all [place] treatmentfacilities. This section includes future appointments and future orders which are active, pending or scheduled. Future Appointments This section includes appointments that were scheduled to occur 6 months from the date of the Encounter, up to a maximum of 20 appointments. The data comes from all [place] treatment facilities. Appointment Date/Time Appointment Type Appointme nt Facility Name Nov 01, 2024 01:30 PM AMBULATORY - MEDICINE [place] [facility] [place] [facility] Nov 17, 2024 01:00 PM AMBULATORY - SURGERY [place] [facility] [place] [facility] Dec 19, 2024 08:30 AM AMBULATORY - MEDICINE [facility] Jan 17, 2025 02:30 PM AMBULATORY - NONE [place] [facility] [place] [facility] Jan 25, 2025 02:30 PM AMBULATORY - MEDICINE [place] [facility] [place] [facility] Feb 13, 2025 01:00 PM AMBULATORY - MEDICINE [facility] Feb 22, 2025 08:30 AM AMBULATORY - MEDICINE [place] [facility] [place] [facility] Mar 02, 2025 01:00 PM AMBULATORY - MEDICINE [place] [facility] [place] [facility] Mar 06, 2025 03:00 PM AMBULATORY - PSYCHIATRY [facility] Lab Results: +/- 30 days of the encounter This section includes the Chemistry and Hematology Lab Results on record with [place] for the patient. Radiology Reports and Pathology Reports are provided separately, in subsequent sections. Lab Results This section contains the Chemistry/Hematology Results that were resulted 30 days before or 30 daysafter the date of the Encounter. Date/Time Source Result Type Result - Unit Interpretation Reference Range Specimen Type Comment Sep 14, 2024 01:38 PM [place] CNT WSN [facility] LYME SEROLOGY PANEL SERUM Specimen Type: [...] of the panel were validated at the [facility] Molecular Diagnostics Laboratory. Results are considered positive [...] local health departments, if applicable. Ordering Provider: SHAUNAN MCDERMOTT Report Released Date/Time: Sep 14, 2024 01:22 PM Reporting Lab: [address] [address] Performing Lab: [address] [address] TIER 1 LYME SCREENING EIA Negative Negat joyce LYME AB FINAL INTERPRETATION Negative Ne gative Sep 14, 2024 01:38 PM [facility] CBC AND DIFF (AUTO) BLOOD Specimen Type: BLOO D No comment entered. Ordering Provider: SHAUNNA MCDERMOTT Report Released Date/Time: Sep 14, 2024 01:22 PM Reporting Lab: [address] [address] Performing Lab: [address] [address] WBC 5.55 10*3/uL 4.50-11.00 RBC 4.50 10*6/uL [...] 10*3/uL 0.00-0.00 Sep 14, 2024 01:38 PM [place] HEMOGLOBIN A1C PANEL BLOOD Specimen T ype: [...] Apr 19, 2024 01:34 PM Reporting Lab: [address] [address] Performing Lab: [address] [address] HEMOGLOBIN A1C 7.9 H 4.0-5.6 Vital Signs: All taken on the encounter date This section contains inpatient and outpatient Vital Signs collected on the date of the Encounter. Date/Time Temperature Pulse Blood Pressure Respiratory Rate SP02 Pain Height Weight Body Mass Index Source Sep 14, 2024 01:18 PM 97.9 67 130/74 18 97 0 200.2 29 [facility] Social History: Smoking Status (Most current) and Tobacco Use (All prior to encounter date) This section includes the most current, and the historical, smoking and tobacco- related health factors from the [place] facility where the Encounter took place. Current Smoking Status This section includes the most current smoking, or tobacco-related health factor, from the [place] facility where the Encounter took place. Date/Time Current Smoking Status Comment Facil ity Aug 13, 2023 11:00 AM [place]-TOBACCO FORMER USER [facility] Tobacco Use History This section includes a history of the smoking, or tobacco-related health factors, that were collected on or before the date of the Encounter. The data comes from the [place] facility where the Encounter took place. Date/Time Smoking Status/Tobacco Use Comment F acility Aug 13, 2023 11:00 AM [place]-TOBACCO QUIT 15 YRS OR MORE [facility] Encounter Notes: All associated encounter notes This section contains the clinical notes associated to the Encounter. Date/Time Encounter Note(s) Provider Source Sep 14, 2024 01:16 PM PHYSICIAN STRING TOP SEALER NOTE: LOCAL TITLE: JULIEN NOTE STANDARD TITLE: PHYSICIAN STRING TOP SEALER NOTE DATE OF NOTE: SEP 14, 2024@13:16 ENTRY DATE: SEP 14, 2024@13:16:13 AUTHOR: SHAUNNA MCDERMOTT EXP COSIGNER: URGENCY: STATUS: COMPLETED JULIEN NOTE Has ADDENDA SICK CALL VISIT HPI: 79-year-old male with below noted past medical history presents today with 2-week old lesions on the right flank due to tick removal. Landrum states that he pulled them out with tweezers. He dug at them to make sure that he had removed all of it. He has had no fever, myalgias, arthralgias, rash, headache or vision changes. No changes in mood. Landrum is concerned about Lyme disease and is requesting lab work. REVIEW OF SYSTEMS: A 12 point review of systems is negative except as noted in the HPI. Active Medical Problems: Active Problem Aneurysm of aortic root I71.21 12/27/2023 DIONTE ADDISON Heart murmur R01.1 12/27/2023 DIONTE ADDISON Impacted cerumen in left ear H61.22 05/12/2023 DAVID CASTILLO Lump R22.2 02/04/2023 DAVID CASTILLO Arthropod bite wound W57.XXXA 02/04/2023 DAVID CASTILLO Ankle fracture (SNOMED CT 99687225) 04/14/2022 ANTONY CONWAY Onychomycosis of toenails B35.1 11/16/2018 TIFFANY CRUZ Urinary incontinence J42. 01/12/2019 ANTONY CONWAY History of malignant neoplasm of co 09/26/2019 ANTONY CONWAY Diabetes mellitus (SNOMED CT 508886 08/21/2015 GENARO SANON Osteoarthrosis, unspecified whether 02/27/2013 TONYA EPPERSON Animal Bite E906.3 09/18/2011 TONYA EPPERSON Iron deficiency anemia (SNOMED CT 8 04/22/2017 ANTONY CONWAY Obesity (SNOMED CT 836981011) E66.8 10/13/2017 GENARO SANON Cardiovascular Stress Test with Con 04/03/2008 NADYA PACKER Urinary Incontinence 788.30 06/29/2007 NADYA PACKER Fissure in Ano 565.0 06/07/2015 TONYA EPPERSON Hyperlipidemia (SNOMED CT 68055747) 10/13/2017 GENARO SANON PROSTATE, MALIGN NEOPLASM 185. 06/17/2007 NADYA PACKER Psoriasis, skin or nails * (ICD-9-C 12/24/2006 NADYA PACKER Hypertension (SNOMED CT 84678529) I 09/17/2020 ANTONY CONWAY Bipolar disorder in full remission 03/02/2022 BRADLEY HERRERA Supraventricular tachycardia I47.1 10/26/2019 ANTONY CONWAY Depressive disorder (SNOMED CT 3548 06/20/2024 BRADLEY HERRERA [place] Gastroesophageal reflux disease wit 09/17/2020 ANTONY CONWAY Meds: Active Outpatient Medications (including Supplies): ACCU-CHEK GUIDE (GLUCOSE) TEST STRIP USE 1 STRIP TO TEST ACTIVE BLOOD SUGARS THREE TIMES A DAY BRIEF,PROTECTION PLUS LARGE #[id number] USE ONE BRIEF ACTIVE DIRECTED SIX TIMES A DAY CARBOXYMETHYLCELLULOSE NA 0.5% OPH SOLN INSTILL 1 DROP ACTIVE INTO EACH EYE FOUR TIMES DAILY NEEDED FOR DRY EYE DICLOFENAC NA 1% TOP GEL APPLY 2 GRAMS TOPICALLY FOUR ACTIVE TIMES DAILY NEEDED FOR OSTEOARTHRITIS - USE DOSING CARD PROVIDED IN BOX DIVALPROEX 500MG 24HR (ER) SA TAB TAKE ONE TABLET BY MOUTH ACTIVE TWICE DAILY FOR BIPOLAR DISORDER INCONT LINER DEPEND GUARDS USE 1 PAD TOPICALLY THREE TIMES ACTIVE DAILY NEEDED INCONTINENCE INSULIN,ASPART,HUMAN 100 UNIT/ML INJ INJECT 10 UNITS ACTIVE SUBCUTANEOUSLY EVERY MORNING AND INJECT 10 UNITS ONCE DAILY AT LUNCH AND INJECT 16 UNITS EVERY EVENING BEFORE SUPPER INSULIN,GLARGINE-YFGN 100UNIT/ML INJ INJECT 30 UNITS ACTIVE SUBCUTANEOUSLY ONCE DAILY LISINOPRIL 20MG TAB TAKE ONE TABLET BY MOUTH ONCE DAILY TO ACTIVE CONTROL BLOOD PRESSURE NEEDLE,PEN 31G,5MM USE 1 NEEDLE SUBCUTANEOUSLY FOUR TIMES ACTIVE (S) A DAY FOR USE WITH PEN DEVICE OMEPRAZOLE 20MG EC CAP TAKE TWO CAPSULES BY MOUTH EVERY ACTIVE MORNING 30 MINUTES BEFORE BREAKFAST Non-VA ASPIRIN 81MG EC TAB 81MG BY MOUTH ONCE DAILY ACTIVE Non-VA CINNAMON CAP/TAB BY MOUTH ACTIVE Non-VA CYANOCOBALAMIN TAB BY MOUTH ACTIVE Non-VA MAGNESIUM OXIDE TAB BY MOUTH ACTIVE Non-VA MULTIVITAMIN/MINERALS CAP/TAB 1 TABLET BY MOUTH ACTIVE ONCE DAILY Non-VA TURMERIC CAP/TAB BY MOUTH ACTIVE Non-VA VITAMIN D3 (CHOLECALCIFEROL) TAB BY MOUTH ACTIVE Allergies: Patient has answered NKA Blood Pressure: 130/74 (09/14/2024 13:18) Pain: 0 (09/14/2024 13:18) Patient Height: 69.5 in [176.5 cm] (04/19/2024 13:07) Patient Weight: 200.2 lb [90.81 kg] (09/14/2024 13:18) Pulse: 67 (09/14/2024 13:18) Respiration: 18 (09/14/2024 13:18) Temperature: 97.9 F [36.6 C] (09/14/2024 13:18) FOCUSED EXAMINATION GEN: WD NAD INT: Right flank with two inflammed pink lesions with central eschar noted without induration, tenderness or excess warmth. There does not appear to be any FB retained. No exudate Vascular: well perfused MDM: Landrum is asymptomatic but cannot state how long the ticks were present. We discussed timing for seroconversion as well as less traumatic tick removal instructions. Lyme and CBC ordered. If platelet count is elevated will need to have further testing but doubt any tickborne illness at this time due to asymptomatic presentation. The areas do not appear to be infected but due to the exterior excoriated appearance, Bactroban topical twice daily has been ordered. Landrum is in agreement with this plan of care and is able to verbalize understanding. RTC as needed. ASSESSMENT/PLAN Insect Bite (Nonvenomous) of Abdominal Wall, Initial Encounter as above Landrum able to verbalize understanding of plan of care and agrees. >> MEDICATIONS Reviewed and reconciled with Landrum /davon/ SHAUNNA BARKER MS,PA-C PHYSICIAN STRING TOP SEALER Signed: 09/14/2024 13:33 Receipt Acknowledged By: 09/18/2024 07:19 /davon/ GARRICK STINSON NP NURSE PRACTITIONER 09/14/2024 ADDENDUM STATUS: COMPLETED WBC 5.55 K/cmm 4.50 - 11.00 RBC 4.50 M/cmm 4.23 - 5.66 HGB 13.2 g/dL 12.8 - 17 HCT 38.4 L % 39.2 - 50.4 MCV 85.3 fl 82 - 99 MCH 29.3 pg 26.2 - 32.6 MCHC 34.4 g/dL 30.8 - 35.1 RDW-CV 13.3 % 12.0 - 16.0 PLT 238 K/cmm 140 - 360 NEUT % 80.3 H % 43.7 - 75.8 LYMPH % 12.6 L % 14.0 - 42.3 MONO % 6.1 % 5.1 - 13.7 EOS % 0.2 L % 0.4 - 6.8 BASO % 0.4 % 0.1 - 2.0 IMMATURE GRAN % 0.4 % 0.0 - 0.7 NRBC % 0.0 % 0.0 - 0.0 NEUT, ABS 4.46 K/cmm 2.20 - 7.60 LYMPH, ABS 0.70 L K/cmm 1.00 - 3.20 MONO, ABS 0.34 K/cmm 0.30 - 1.10 EOS, ABS 0.01 L K/cmm 0.03 - 0.44 BASO, ABS 0.02 K/cmm 0.01 - 0.13 IMMATURE GRAN, ABS 0.02 K/cmm 0.00 - 0.06 NRBC, ABS 0.00 K/cmm 0.00 - 0.00 Normal platelet count /es/ SHAUNNA BARKER, MS,PA-C PHYSICIAN STRING TOP SEALER Signed: 09/14/2024 14:13 SHAUNNA MCDERMOTT [place] [facility]
--- OUTSIDE RECORDS SUMMARY | 2024-10-17 09:00 | XMS_ITS | Encounter Summary ---
Author Name [facility] [place] Organization [place] Address [address] [place] [address] Care Team Providers Care Air Route Controller Name Role Phone JAIDA CHRIS Primary Care Provider Unavailabl e Insurance Providers: [...] Name Patient's Relationship to Policy Multani [facility] (WNR) MEDICARE (M) [facility] (WNR) Nov 15, 2016 [id number] ADRIENNE PUENTES ON PATIENT [facility] (WNR) MEDICARE ADVANTAGE [place] PPOD VALUE DB DS Nov 15, 2017 [id number] [phone] ADRIENNE PUENTES ON PATIENT Selected Encounter This section includes the information on record at [place] for the Encounter. Date/Time Encounter Type Encounter Description Reason Pro vider Source Oct 17, 2024 01:00 PM Outpatient Encounter PRIMARY CARE/MEDICINE IHE Encounter Template Text not used by [place] Plan of Treatment: Future Appointments (+ 6 [...] 20 appointments. The data comes from all [place] treatment facilities. Appointment Date/Time Appointment Type Appointme nt Facility Name Nov 01, 2024 01:30 PM AMBULATORY - [place]ICINE [place] [facility] [facility] Nov 17, 2024 01:00 PM AMBULATORY - SURGERY [place] [facility] [place] [facility] Dec 19, 2024 08:30 AM AMBULATORY - MEDICINE [facility] Jan 17, 2025 02:30 PM AMBULATORY - NONE [place] [facility] [place] [facility] Jan 25, 2025 02:30 PM AMBULATORY - MEDICINE [place] [facility] [facility] Feb 13, 2025 01:00 PM [facility] Feb 22, 2025 08:30 AM AMBULATORY - MEDICINE [place] [facility] [place] [facility] Mar 02, 2025 01:00 PM AMBULATORY - MEDICINE [place] [facility] [facility] Mar 06, 2025 03:00 PM AMBULATORY - PSYCHIATRY [facility] March 16, 2025 11:30 AM [facility] April 03, 2025 09:00 AM AMBULATORY - NONE [place] [facility] [place] [facility] Apr 17, 2025 03:00 PM AMBULATORY - PSYCHIATRY [facility] Social History: Smoking Status (Most current) and Tobacco Use (All prior to encounter date) This section includes the most current, and the historical, smoking and tobacco- related health factors from the [place] facility where the Encounter took place. Current Smoking Status This section includes the most current smoking, or tobacco-related health factor, from the [place] facility where the Encounter took place. Date/Time Current Smoking Status Comment Alton hammer Jun 25, 2022 11:00 AM VA-TOBACCO FORMER USER [facility] Tobacco Use History This section includes a history of the smoking, or tobacco-related health factors, that were collected on or before the date of the Encounter. The data comes from the [place] facility where the Encounter took place. Date/Time Smoking Status/Tobacco Use Comment F shira Jun 25, 2022 11:00 AM VA-TOBACCO QUIT 15 YRS OR MORE [facility] May 09, 2021 11:30 AM VA-TOBACCO FORMER USER [facility] May 09, 2021 11:30 AM [place]-TOBACCO QUIT 15 YRS OR MORE [facility] May 23, 2020 10:54 AM VA-TOBACCO FORMER USER [facility] May 23, 2020 10:54 AM VA-TOBACCO QUIT 15 YRS OR MORE [facility] Aug 04, 2018 01:44 PM VA-TOBACCO FORMER USER [facility] Aug 04, 2018 01:44 PM VA-TOBACCO QUIT 15 YRS OR MORE [facility] Dec 21, 2017 11:00 AM QUIT TOBACCO USE > 7 YEARS AGO [facility] Jan 13, 2017 11:37 AM QUIT TOBACCO USE > 7 YEARS AGO [facility] Jan 21, 2016 01:05 PM QUIT TOBACCO USE > 7 YEARS AGO [facility] Jun 30, 2005 02:26 PM HISTORY OF SMOKING [facility] Apr 16, 2004 09:48 AM HISTORY OF SMOKING stopped tobacco 30 years ago [facility] Oct 15, 2003 12:05 PM QUIT TOBACCO USE > 7 YEARS AGO [facility] Sep 12, 2003 01:27 PM QUIT TOBACCO USE > 7 YEARS AGO [facility] Nov 21, 2002 02:50 PM HISTORY OF SMOKING stopped tobacco 28 years ago [facility] Nov 21, 2002 02:50 PM QUIT TOBACCO USE > 7 YEARS AGO stopped tobacco 28 years ago [facility] Aug 18, 2001 10:18 AM HISTORY OF SMOKING QAUIT 25 YEARS AGO [facility] Encounter Notes: All associated encounter notes This section contains the clinical notes associated to the Encounter. Date/Time Encounter Note(s) Provider Source Oct 17, 2024 01:17 PM ADMINISTRATIVE NOT E: LOCAL TITLE: ADMINISTRATIVE NOTE STANDARD TITLE: ADMINISTRATIVE NOTE DATE OF NOTE: OCT 17, 2024@13:17 ENTRY DATE: OCT 17, 2024@13:17:52 AUTHOR: GRETCHEN MORATAYA EXP COSIGNER: URGENCY: STATUS: COMPLETED ADMINISTRATIVE NOTE Has ADDENDA was a no show for today's scheduled appointment. /davon/ GRETCHEN MORATAYA LPN LPN Signed: 10/17/2024 13:18 10/19/2024 ADDENDUM STATUS: COMPLETED CAME IN LATE FOR HIS APPT PROVIDER WAS UNABLE TO SEE /davon/ GERBER RUANO ADVANCE TERRAZZO FINISHER Signed: 10/19/2024 15:18 GRETCHEN MORATAYA LUDIVINA
--- OUTSIDE RECORDS SUMMARY | 2024-11-15 08:04 | XMS_ITS | Encounter Summary ---
Author Name [facility] [place] Address [address] [place] [id number] Care Team Providers Care Corn Chip Maker Name Role Phone CHRIS SENA Primary Care [...] Name Patient's Relationship to Policy Multani [facility] ([place]NR) MEDICARE (M) [facility] (WNR) Nov 15, 2016 [id number] ADRIENNE PUENTES ON PATIENT [facility] (WNR) MEDICARE ADVANTAGE [place] PPOD VALUE DB DS Nov 15, 2017 [id number] [phone] ADRIENNE PUENTES ON PATIENT Selected Encounter This section includes the information on record at [place] for the Encounter. Date/Time Encounter Type Encounter Description Reason Pro vider Source Nov 15, 2024 12:04 PM Outpatient Encounter ADMIN PAT ACTIVTIES (MASNONCT) IHE Encounter Template Text not used by [place] Plan of Treatment: Future Appointments (+ 6 [...] 20 appointments. The data comes from all [place] treatment facilities. Appointment Date/Time Appointment Type Appointme nt Facility Name Nov 17, 2024 01:00 PM AMBULATORY - SURGERY [place] [facility] [place] [facility] Dec 19, 2024 08:30 AM [facility]ORY [facility]ICINE [facility] Jan 17, 2025 02:30 PM AMBULATORY - NONE [place] [facility] [place] [facility] Jan 25, 2025 02:30 PM AMBULATORY - MEDICINE [place] [facility] [place] [facility] Feb 13, 2025 01:00 PM [facility]ULATORY - [facility]ICINE [facility] Feb 22, 2025 08:30 AM AMBULATORY - MEDICINE [place] [facility] [place] [facility] Mar 02, 2025 01:00 PM AMBULATORY - MEDICINE [place] [facility] [place] [facility] Mar 06, 2025 03:00 PM AMBULATORY - PSYCHIATRY [facility] March 16, 2025 11:30 AM [facility] April 03, 2025 09:00 AM AMBULATORY - NONE [place] [facility] [place] [facility] Apr 17, 2025 03:00 PM AMBULATORY - PS[facility]CHIATRY [facility] May 01, 2025 08:00 AM [facility] Social History: Smoking Status (Most current) and Tobacco Use (All prior to encounter date) This section includes the most current, and the historical, smoking and tobacco- related health factors from the [place] facility where the Encounter took place. Current Smoking Status This section includes the most current smoking, or tobacco-related health factor, from the [place] facility where the Encounter took place. Date/Time Current Smoking Status Comment Facil ity Aug 13, 2023 11:00 AM [facility] Tobacco Use History This section includes a history of the smoking, or tobacco-related health factors, that were collected on or before the date of the Encounter. The data comes from the [place] facility where the Encounter took place. Date/Time Smoking Status/Tobacco Use Comment F acility Aug 13, 2023 11:00 AM VA-TOBACCO QUIT 15 YRS OR MORE [place] [facility] Encounter Notes: All associated encounter notes This section contains the clinical notes associated to the Encounter. Date/Time Encounter Note(s) Provider Source Nov 15, 2024 12:05 PM PHARMACY NOTE: LOCAL TITLE: V1 PHARMACY CUSTOMER CARE MEDICATION RENEWAL STANDARD TITLE: PHARMACY NOTE DATE OF NOTE: NOV 15, 2024@12:05 ENTRY DATE: NOV 15, 2024@12:05:08 AUTHOR: WILFRID LOZA V EXP COSIGNER: URGENCY: STATUS: COMPLETED Date: Nov Division: [place] Pt referred by Pharmacy Call Center for medication renewal: Non-controlled/maintenan ce medication Medications requested: [id number] OMEPRAZOLE 20MG EC CAP Defer to primary care provider To be mailed . Please review and renew if appropriate. *This note was generated by [facility] Pharmacy Customer Care. If you have any questions or need assistance, do not contact this author. Please refer all questions to your local, on-site pharmacy departments. /davon/ WILFRID LOZA CPhT Bottle Capper, CT/Pharmacy Customer Care Signed: 11/15/2024 12:05 Receipt Acknowledged By: 11/16/2024 08:27 /davon/ QING MARINELLI REGISTERED NURSE 11/21/2024 07:49 /es/ GARRICK STINSON NP NURSE PRACTITIONER WILFRID LOZA V [place] [facility]
--- OUTSIDE RECORDS SUMMARY | 2024-11-17 08:50 | XMS_ITS | Encounter Summary ---
Author Name [facility] Address [address] [place] [address] Care Team Providers Care Sales And In Home Delivery Specialist Name Role Phone MARCHCHRIS Primary Care Provider Unavailabl e Insurance Providers: [...] Name Patient's Relationship to Policy Multani [facility] (WNR) MEDICARE (M) [facility] (WNR) Nov 15, 2016 [id number] [phone] ADRIENNE PUENTES ON PATIENT [facility] (WNR) MEDICARE ADVANTAGE [place] PPOD VALUE DB DS Nov 15, 2017 [id number] ADRIENNE PUENTES ON PATIENT Selected Encounter This section includes the information on record at [place] for the Encounter. Date/Time Encounter Type Encounter Description Reason Pro vider Source Nov 17, 2024 12:50 PM Outpatient Encounter COMMUNITY CARE CONSULT IHE Encounter Template Text not used by [place] Plan of Treatment: Future Appointments (+ 6 [...] 20 appointments. The data comes from all [place] treatment [facility]. Appointment Date/Time Appointment Type Appointme nt Facility Name Dec 19, 2024 08:30 AM AMBULATORY - MEDICINE [facility] Jan 17, 2025 02:30 PM AMBULATORY - NONE [place] [facility] [place] [facility] Jan 25, 2025 02:30 PM AMBULATORY - MEDICINE [place] [facility] [place] [facility] Feb 13, 2025 01:00 PM AMBULATORY - MEDICINE [facility] Feb 22, 2025 08:30 AM AMBULATORY - MEDICINE [place] [facility] [place] [facility] Mar 02, 2025 01:00 PM AMBULATORY - MEDICINE [place] [facility] [place] [facility] Mar 06, 2025 03:00 PM AMBULATORY - PSYCHIATRY [facility] March 16, 2025 11:30 AM AMBULATORY - MEDICINE [facility] April 03, 2025 09:00 AM AMBULATORY - NONE [place] [facility] [place] [facility] Apr 17, 2025 03:00 PM AMBULATORY - PSYCHIATRY [facility] May 01, 2025 08:00 AM AMBULATORY - MEDICINE [place] [facility] [place] [facility] Social History: Smoking Status (Most current) and Tobacco Use (All prior to encounter date) This section includes the most current, and the historical, smoking and tobacco- related health factors from the [place] facility where the Encounter took place. Current Smoking Status This section includes the most current smoking, or tobacco-related health factor, from the [place] facility where the Encounter took place. Date/Time Current Smoking Status Comment Facil ity Aug 13, 2023 11:00 AM [place]-TOBACCO QUIT 15 YRS OR MORE [facility] Tobacco Use History This section includes a history of the smoking, or tobacco-related health factors, that were collected on or before the date of the Encounter. The data comes from the [place] facility where the Encounter took place. Date/Time Smoking Status/Tobacco Use Comment [facility] Aug 13, 2023 11:00 AM [place]-TOBACCO QUIT 15 YRS OR MORE [facility] Encounter Notes: All associated encounter notes This section contains the clinical notes associated to the Encounter. Date/Time Encounter Note(s) Provider Source Nov 17, 2024 01:09 PM ADDENDUM: LOCAL TITLE: Addendum STANDARD TITLE: ADDENDUM DATE OF NOTE: NOV 17, 2024@13:09:01 ENTRY DATE: NOV 17, 2024@13:09:02 AUTHOR: QING MARINELLI EXP COSIGNER: URGENCY: STATUS: COMPLETED Consult placed, held for provider review and signature if appropriate. /davon/ QING MARINELLI REGISTERED NURSE Signed: 11/17/2024 13:09 Receipt Acknowledged By: 11/17/2024 13:20 /es/ JEANIE INIGUEZ [facility] Care RN --- Original Document --- 11/17/24 [facility] CARE-CARE COORDINATION PLAN NOTE: being seen today at 1 PM by [facility] Thoracic [facility]. 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 Patient has C0M3 Tellez's esophagus based off of Belen criteria. Endoscopic evaluation did not show evidence of a clear area of nodularity. There was one area of what appeared to be more granular and erythematous tissue. This was biopsied and did not show evidence of dysplasia. We discussed at length today the current concepts related to dysplasia in Tellez's, the various options of endoscopic therapy available, our experience in this realm, the role of surgical intervention, the risks/benefits and potential complications of EMR/RFA and so forth. We also discussed the value of EMR in the initial assessment of dysplastic/neoplastic Tellez's and how we would use the information from that in terms of management. All questions and concerns were addressed to the best of my ability. I explicitly reviewed the following: -I will refer patient to Thoracic Surgery for any additional recommendations in this setting given that biopsy results could not exclude intramucosal adenocarcinoma. *Alert to PACT- Please enter CC thoracic surgery consult if in agreement. Appt. 11/17/2023 at 1 PM. Dx: dysplasia, Tellez's esophagus (see above) [facility] [address] [place] [address] , [address] [facility] [id number] Fax for New Referrals only: [phone] Group Thank you. /davon/ JEANIE INIGUEZ [facility] RN Signed: 11/17/2024 12:53 Receipt Acknowledged By: 11/17/2024 13:08 /es/ QING MARINELLI REGISTERED NURSE * AWAITING SIGNATURE * GARRICK STINSON,[facility] [place] [facility] Nov 17, 2024 12:50 PM NONVA NOTE: LOCAL TITLE: COMMUNITY CARE-CARE COORDINATION PLAN NOTE STANDARD TITLE: NONVA NOTE DATE OF NOTE: NOV 17, 2024@12:50 ENTRY DATE: NOV 17, 2024@12:50:29 AUTHOR: JEANIE INIGUEZ EXP COSIGNER: URGENCY: STATUS: COMPLETED COMMUNITY CARE-CARE COORDINATION PLAN NOTE Has ADDENDA Iredell being seen today at 1 PM by [facility] Thoracic [facility]. 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 Patient has C0M3 Tellez's esophagus based off of Belen criteria. Endoscopic evaluation did not show evidence of a clear area of nodularity. There was one area of what appeared to be more granular and erythematous tissue. This was biopsied and did not show evidence of dysplasia. We discussed at length today the current concepts related to dysplasia in Tellez's, the various options of endoscopic therapy available, our experience in this realm, the role of surgical intervention, the risks/benefits and potential complications of EMR/RFA and so forth. We also discussed the value of EMR in the initial assessment of dysplastic/neoplastic Tellez's and how we would use the information from that in terms of management. All questions and concerns were addressed to the best of my ability. I explicitly reviewed the following: -I will refer patient to Thoracic Surgery for any additional recommendations in this setting given that biopsy results could not exclude intramucosal adenocarcinoma. *Alert to PACT- Please enter CC thoracic surgery consult if in agreement. Appt. 11/17/2023 at 1 PM. Dx: dysplasia, Tellez's esophagus (see above) [facility] [address] [place] [address] , [address] [facility] [id number] Fax for New Referrals only: [phone] Group Thank you. /davon/ JEANIE INIGUEZ [facility] RN Signed: 11/17/2024 12:53 Receipt Acknowledged By: 11/17/2024 13:08 /es/ QING MARINELLI REGISTERED NURSE 11/23/2024 10:46 /es/ GARRICK STINSON NP NURSE PRACTITIONER 11/17/2024 ADDENDUM STATUS: COMPLETED Consult placed, held for provider review and signature if appropriate. /davon/ QING MARINELLI REGISTERED NURSE Signed: 11/17/2024 13:09 Receipt Acknowledged By: 11/17/2024 13:20 /davon/ JEANIE INIGUEZ [facility] JEANIE PONCE [place] [facility]
--- OUTSIDE RECORDS SUMMARY | 2024-12-06 05:01 | XMS_ITS ---
Author Name [facility] [place] [facility] [place] Address [address] [place] [id number] Care Team Providers Care Cello Teacher Name Role Phone CHRIS SENA Primary Care [...] Name Patient's Relationship to Policy Multani [facility] (WNR) MEDICARE (M) [facility] (WNR) Nov 15, 2016 [id number] ADRIENNE PUENTES ON PATIENT [facility] (WNR) MEDICARE ADVANTAGE [place] PPOD VALUE DB DS Nov 15, 2017 [id number] ADRIENNE PUENTES ON PATIENT Selected Encounter This section includes the information on record at [place] for the Encounter. Date/Time Encounter Type Encounter Description Reason Pro vider Source Dec 06, 2024 09:01 AM Outpatient Encounter ADMIN PAT ACTIVTIES (MASNONCT) IHE Encounter Template Text not used by [place] Plan of Treatment: Future Appointments (+ 6 [...] 20 appointments. The data comes from all [place] treatment facilities. Appointment Date/Time Appointment Type Appointme nt Facility Name Dec 19, 2024 08:30 AM AMBULATORY - MEDICINE [facility] Jan 17, 2025 02:30 PM AMBULATORY - NONE [place] [facility] [place] [facility] Jan 25, 2025 02:30 PM AMBULATORY - MEDICINE [place] [facility] [place] [facility] Feb 13, 2025 01:00 PM AMBULATORY - MEDICINE [facility] Feb 22, 2025 08:30 AM AMBULATORY - MEDICINE [place] [facility] [place] [facility] Mar 02, 2025 01:00 PM AMBULATORY - MEDICINE [place] [facility] [place] [facility] Mar 06, 2025 03:00 PM AMBULATORY - PSYCHIATRY [facility] March 16, 2025 11:30 AM AMBULATORY - MEDICINE [facility] April 03, 2025 09:00 AM AMBULATORY - NONE [place] [facility] [place] [facility] Apr 17, 2025 03:00 PM AMBULATORY - PSYCHIATRY [facility] May 01, 2025 08:00 AM AMBULATORY - MEDICINE [place] [facility] [place] [facility] Jun 04, 2025 09:00 AM AMBULATORY - MEDICINE [place] [facility] [place] [facility] Social History: Smoking Status (Most current) and Tobacco Use (All prior to encounter date) This section includes the most current, and the historical, smoking and tobacco- related health factors from the [place] facility where the Encounter took place. Current Smoking Status This section includes the most current smoking, or tobacco-related health factor, from the [place] facility where the Encounter took place. Date/Time Current Smoking Status Comment Facil ity Aug 13, 2023 11:00 AM [place] Tobacco Use History This section includes a history of the smoking, or tobacco-related health factors, that were collected on or before the date of the Encounter. The data comes from the [place] facility where the Encounter took place. Date/Time Smoking Status/Tobacco Use Comment F acility Aug 13, 2023 11:00 AM [facility]-TOB[facility]CO [facility]IT [facility]RS [facility] Encounter Notes: All associated encounter notes This section contains the clinical notes associated to the Encounter. Date/Time Encounter Note(s) Provider Source Dec 06, 2024 09:01 AM PHARMACY NOTE: LOCAL TITLE: V1 PHARMACY CUSTOMER CARE MEDICATION RENEWAL STANDARD TITLE: PHARMACY NOTE DATE OF NOTE: DEC 06, 2024@09:01 ENTRY DATE: DEC 06, 2024@09:01:36 AUTHOR: WILFRID LOZA V EXP COSIGNER: URGENCY: STATUS: COMPLETED Date: Nov Division: [place] Pt referred by Pharmacy Call Center for medication renewal: Non-controlled/maintenan ce medication Medications requested: [id number] DICLOFENAC NA 1% TOP GEL Defer to primary care provider To be mailed . Please review and renew if appropriate. *This note was generated by [facility]/[place] Pharmacy Customer Care. If you have any questions or need assistance, do not contact this author. Please refer all questions to your local, on-site pharmacy departments. /davon/ WILFRID LOZA CPhT [employer], [place]/Pharmacy Customer Care Signed: 12/06/2024 09:06 Receipt Acknowledged By: 12/06/2024 12:35 /davon/ GARRICK STINSON NP NURSE PRACTITIONER WILFRID LOZA [place] [facility]
--- OUTSIDE RECORDS SUMMARY | 2025-01-17 10:30 | XMS_ITS | Encounter Summary ---
Author Name [facility] [place] [facility] [place] [facility] [facility] [place] Address [address] [place] [address] Care Team Providers Care Tool And Die Manager Name Role Phone MARCHCHRIS Primary Care Provider [...] Name Patient's Relationship to Policy Multani ERIC [facility] (WNR) MEDICARE ([place]) [facility] (WNR) Nov 15, 2016 [id number] PATIENT [facility] (WNR) MEDICARE ADVANTAGE [place] PPOD VALUE DB DS Nov 15, 2017 [id number] ADRIENNE PUENTES ON PATIENT Selected Encounter This section includes the information on record at [place] for the Encounter. Date/Time Encounter Type Encounter Description Reason Provider Source Jan 17, 2025 02:30 PM INTRAORAL PERIAPICAL FIRST DENTAL ICD-10-CM K03.6 Deposits [accretions] on teeth SYED DAVILA IHAnju Encounter Template Text not used by [facility] Assessments - Encounter Diagnoses This section includes the primary and secondary diagnoses documented for the Encounter. Date/Time Primary/Secondary Diagnosis Diagnosis Name Provider Source Jan 17, 2025 02:57 PM PRIMARY Deposits [accretions] on teeth HOHREITER,[facility] [place] [facility] [place] [facility] Plan of Treatment: Future Appointments (+ 6 months) and Future Tests (+/- 45 days) The Plan of Treatment section includes future care activities for the patient from all [place] treatmentfacilities. This section includes future appointments and future orders which are active, pending or scheduled. Future Appointments This section includes appointments that were scheduled to occur 6 months from the date of the Encounter, up to a maximum of 20 appointments. The data comes from all [place] treatment facilities. Appointment Date/Time Appointment Type Appointme nt Facility Name Jan 25, 2025 02:30 PM AMBULATORY - MEDICINE [place] [facility] [place] [facility] Feb 13, 2025 01:00 PM AMBULATORY - MEDICINE [facility] Feb 22, 2025 08:30 AM AMBULATORY - MEDICINE [place] [facility] [place] [facility] Mar 02, 2025 01:00 PM AMBULATORY - MEDICINE [place] [facility] [place] [facility] Mar 06, 2025 03:00 PM AMBULATORY - PSYCHIATRY [facility] March 16, 2025 11:30 AM AMBULATORY - MEDICINE [facility] April 03, 2025 09:00 AM AMBULATORY - NONE [place] [facility] [place] [facility] Apr 17, 2025 03:00 PM AMBULATORY - PSYCHIATRY [facility] May 01, 2025 08:00 AM AMBULATORY - MEDICINE [place] [facility] [place] [facility] Jun 04, 2025 09:00 AM AMBULATORY - MEDICINE [place] [facility] [place] [facility] Jun 12, 2025 07:00 AM AMBULATORY - MEDICINE [place] [facility] [place] [facility] Jul 12, 2025 11:30 AM AMBULATORY - MEDICINE [place] [facility] [place] [facility] Jul 20, 2025 09:30 AM AMBULATORY - MEDICINE [facility] Lab Results: +/- 30 days of the encounter This section includes the Chemistry and Hematology Lab Results on record with [place] for the patient. Radiology Reports and Pathology Reports are provided separately, in subsequent sections. Lab Results This section contains the Chemistry/Hematology Results that were resulted 30 days before or 30 daysafter the date of the Encounter. Date/Time Source Result Type Result - Unit Interpretation Reference Range Specimen Type Comment Feb 13, 2025 01:48 PM [facility] VITAMIN D (25-OH) SERUM Specimen Type : SERUM No comment entered. Ordering Provider: GARRICK STINSON Report Released Date/Time: Feb 13, 2025 01:44 PM Reporting Lab: [address] [address] Performing Lab: [address] [address] VITAMIN D (25-OH) 44 ng/mL 20-50 Feb 13, 2025 01:48 PM CANEY LIVER FUNCTION SERUM Specimen Type: SERUM No comment entered. Ordering Provider: GARRICK STINSON Report Released Date/Time: Feb 13, 2025 01:44 PM Reporting Lab: [address] [address] Performing Lab: [address] [address] PROTEIN,TOTAL 7.1 g/dL 6.0-8.3 ALBUMIN 3.7 g/dL 3.5-5.0 ALKALINE PHOSPHATASE 123 U/L 40-150 AST 17 U/L 5-34 ALT 28 U/L BILIRUBIN, TOTAL 0.5 mg/dL 0.2-1.2 Feb 13, 2025 01:48 PM CANEY LIPID PANEL, NON FASTING SERUM Specim en Type: SERUM No comment entered. Ordering Provider: GARRICK STINSON Report Released Date/Time: Feb 13, 2025 01:44 PM Reporting Lab: [address] [address] Performing Lab: [address] [address] CHOLESTEROL 106 mg/dL TRIGLYCERIDE 124 mg/dL 0-150 LDL calculated 35 mg/dL 0-129 CHOL/HDL 2.3 HDL CHOLESTEROL 46 mg/dL 40-60 Feb 13, 2025 01:48 PM CANEY BASIC METABOLIC PANEL (non-fasting) SERUM Specimen Type: SERUM No comment entered. Ordering Provider: GARRICK STINSON Report Released Date/Time: Feb 13, 2025 01:44 PM Reporting Lab: [address] [address] Performing Lab: [address] [address] UREA NITROGEN 14 mg/dL 7-25 GLUCOSE 298 mg/dL H 65-100 SODIUM 136 mmol/L 135-145 POTASSIUM 4.7 mmol/L 3.5-5.0 CHLORIDE 105 mmol/L 100-110 CO2 23 meq/L 20-30 CALCIUM 9.1 mg/dL 8.5-10.2 CREATININE, Serum 0.70 mg/dL 0.50-1.40 eGFR(CKD-EPI 2020) >90 mL/min >60 Feb 13, 2025 01:48 PM CANEY MICROALBUMIN CREATININE RATIO PANEL URINE Specimen Type: URINE No comment entered. Ordering Provider: GARRICK STINSON Report Released Date/Time: Feb 13, 2025 01:44 PM Reporting Lab: [address] [address] Performing Lab: [address] [address] MICROALBUMIN/CREATININE RATIO 54.1 mg/g H 0-29.9 MICROALBUMIN,QUANTITATIVE 3.8 mg/dL RR U NAVAIL CREATININE URINE 70.21 mg/dL Feb 13, 2025 01:48 PM CANEY TSH SERUM Sp ecimen Type: SERUM No comment entered. Ordering Provider: GARRICK STINSON Report Released Date/Time: Feb 13, 2025 01:44 PM Reporting Lab: [address] [address] Performing Lab: [address] [address] TSH 0.54 u[IU]/mL 0.35-5.00 Feb 13, 2025 01:48 PM CANEY HEMOGLOBIN A1C PANEL BLOOD Specimen T ype: BLOOD Comment: Values obtained from A1C measurements can vary. For atypical A1C assays, a reported value of 7.0 could actually be between 6.72 and 7.28 if measured by a reference method. A reported value of 9.0 could actually be between 8.73 and 9.27. Ref: http://www.ngsp.org/CAPdata.asp Ordering Provider: GARRICK STINSON Report Released Date/Time: Feb 13, 2025 01:44 PM Reporting Lab: [facility] [address] [facility] [address] Performing Lab: [address] [address] HEMOGLOBIN A1C 6.8 H 4.0-5.6 Feb 13, 2025 01:48 PM CANEY CBC AND DIFF (AUTO) BLOOD Specimen Ty pe: BLOOD No comment entered. Ordering Provider: GARRICK STINSON Report Released Date/Time: Feb 13, 2025 01:44 PM Reporting Lab: [address] [address] Performing Lab: [address] [address] WBC 8.54 10*3/uL 4.50-11.00 RBC 4.83 10*6/uL 4.23-5.66 HGB 13.2 g/dL 12.8-17 HCT 40.5 39.2-50.4 MCV 83.9 fL 82-99 MCHC 32.6 g/dL 30.8-35.1 PLT 314 10*3/uL 140-360 MPV 10.7 fL 9.2-12.4 RDW-CV 14.9 12.0-16.0 MONO, ABS 0.48 10*3/uL 0.30-1.10 MCH 27.3 pg 26.2-32.6 NEUT % 80.1 H 43.7-75.8 LYMPH % 13.3 L 14.0-42.3 MONO % 5.6 5.1-13.7 EOS % 0.2 L 0.4-6.8 BASO % 0.6 0.1-2.0 NEUT, ABS 6.83 10*3/uL 2.20-7.60 LYMPH, ABS 1.14 10*3/uL 1.00-3.20 EOS, ABS 0.02 10*3/uL L 0.03-0.44 BASO, ABS 0.05 10*3/uL 0.01-0.13 IMMATURE GRAN % 0.2 0.0-0.7 IMMATURE GRAN, ABS 0.02 10*3/uL 0.00-0.0 6 NRBC % 0.0 0.0-0.0 NRBC, ABS 0.00 10*3/uL 0.00-0.00 Social History: Smoking Status (Most current) and Tobacco Use (All prior to encounter date) This section includes the most current, and the historical, smoking and tobacco- related health factors from the [place] facility where the Encounter took place. Current Smoking Status This section includes the most current smoking, or tobacco-related health factor, from the [place] facility where the Encounter took place. Date/Time Current Smoking Status Comment Facil ity Aug 13, 2023 11:00 AM [place]-TOBACCO QUIT 15 YRS OR MORE [facility] Tobacco Use History This section includes a history of the smoking, or tobacco-related health factors, that were collected on or before the date of the Encounter. The data comes from the [place] facility where the Encounter took place. Date/Time Smoking Status/Tobacco Use Comment F acility Aug 13, 2023 11:00 AM [place]-TOBACCO QUIT 15 YRS OR MORE [facility] Encounter Notes: All associated encounter notes This section contains the clinical notes associated to the Encounter. Date/Time Encounter Note(s) Provider Source Jan 17, 2025 02:55 PM DENTISTRY NOTE: LOCAL TITLE: DENTAL NOTE STANDARD TITLE: DENTISTRY NOTE DATE OF NOTE: JAN 17, 2025@14:55 ENTRY DATE: JAN 17, 2025@14:57:51 AUTHOR: MITUL DAVILA COSIGNER: URGENCY: STATUS: COMPLETED Patient Name: ANALILIA PUENTES, : 1945, Age: 79 Visit: S: Jan 17, 2025@14:30 [facility] 2. Primary PCE Diagnosis: K03.6 (DEPOSITS [ACCRETIONS] ON TEETH). Dental Category: 15-OPC, Class IV. Treatment Status: Maintenance. Completed Care: (D0140) LIMIT ORAL EVAL PROBLM FOCUS. DX: K03.6 Deposits [Accretions] on Teeth (D0220) INTRAORAL PERIAPICAL FIRST. Tooth: 30. DX: K03.6 Deposits [Accretions] on Teeth Presentation/Chief Complaint: Patient presents for limited oral evaluation Cracked #31, no sensitivity Vital Signs: Dental Pain (0-10): 0 Past Medical History and Medications: No significant changes since the last dental visit Active Problems: Aneurysm of aortic root ([facility] [id number]) Heart murmur ([facility] [id number]) Impacted cerumen in left ear ([facility] [id number]) Lump ([facility] [id number]) Arthropod bite wound ([facility] [id number]) Ankle fracture ([facility] 93649339) Onychomycosis of toenails ([facility] [id number]) Urinary incontinence ([facility] [id number]) History of malignant neoplasm of colon ([facility] 562674598) Diabetes mellitus ([facility] 96660252) Osteoarthrosis, unspecified whether generalized or localized, involving shoulder (ICD-9-CM 715.91) Animal Bite (ICD-9-CM E906.3) Iron deficiency anemia ([facility] 02195801) Obesity ([facility] [id number]) Cardiovascular Stress Test with Continuous Electrocardiographic Monitoring, Phys (ICD-9-CM 799.9) Urinary Incontinence (ICD-9-CM 788.30) Fissure in Ano (ICD-9-CM 565.0) Hyperlipidemia ([facility] 60609631) PROSTATE, MALIGN NEOPLASM (ICD-9-CM 185.) Psoriasis, skin or nails (ICD-9-CM 696.1) Hypertension ([facility] 26009464) Bipolar disorder in full remission ([facility] 62399935) Supraventricular tachycardia ([facility] 6194126) Depressive disorder ([facility] 02862335) Gastroesophageal reflux disease with hiatal hernia ([facility] [id number]) Active Medications: Medication reconciliation performed within the scope of dental. BRIEF,PROTECTIVE SUPER ABS LG ATTENDS - (ACTIVE) DESONIDE 0.05% CREAM - (ACTIVE) DICLOFENAC NA 1% TOP GEL - (ACTIVE) INSULIN,ASPART,HUMAN 100 UNIT/ML INJ - (ACTIVE) LISINOPRIL 20MG TAB - (ACTIVE) LANCET,SOFTCLIX - (ACTIVE) OMEPRAZOLE 20MG EC CAP - (ACTIVE) NEEDLE,PEN 31G,5MM - (ACTIVE) ACCU-CHEK GUIDE (GLUCOSE) TEST STRIP - (ACTIVE) DIVALPROEX 500MG 24HR (ER) SA TAB - (ACTIVE) CARBOXYMETHYLCELLULOSE NA 0.5% OPH SOLN - (ACTIVE) BRIEF,PROTECTION PLUS LARGE #[id number] - (ACTIVE) INCONT LINER DEPEND GUARDS - (ACTIVE) INSULIN,GLARGINE,HUMAN 100 UNIT/ML INJ - (ACTIVE) INSULIN SYRINGE 1ML 31G 8MM - (ACTIVE) LANCET,SOFTCLIX DEVICE - (ACTIVE) TURMERIC CAP/TAB - (ACTIVE) VITAMIN D3 (CHOLECALCIFEROL) TAB - (ACTIVE) CYANOCOBALAMIN TAB - (ACTIVE) ASPIRIN 81MG EC TAB - (ACTIVE) MULTIVITAMIN/MINERALS CAP/TAB - (ACTIVE) MAGNESIUM OXIDE TAB - (ACTIVE) CINNAMON CAP/TAB - (ACTIVE) Oral Examination: Dental Examination: Missing Teeth: 5, 7, 8, 9, 10, 12, 16, 18, 30, 32. Cracked: 31(MOL). Assessment/Plan: No contraindications for planned procedure(s). Planned Procedures: (D2740) CROWN PORCELAIN/CERAMIC SUBS: 31. DX: (). Reviewed risks/benefits/alternatives associated with the proposed treatment plan. Patient agrees to treatment plan as discussed. Disposition: Next visit: [place] #31 Patient to return to dental clinic for continuing care. - - - - - - - - - - - - - - - - - - - - - - - - - - - - - - /vincent DAVILA DMD DENTIST Signed: 01/17/2025 14:57 MITUL DAVILA [facility] Jan 17, 2025 02:47 PM DENTISTRY CONSULT: LOCAL TITLE: CONSULT REPORT/DENTAL STANDARD TITLE: DENTISTRY CONSULT DATE OF NOTE: JAN 17, 2025@14:47 ENTRY DATE: JAN 17, 2025@14:47:38 AUTHOR: MITUL DAVILA EXP COSIGNER: URGENCY: STATUS: COMPLETED Closing image consult /davon/ MITUL DAVILA DMD DENTIST Signed: 01/17/2025 14:47 MITUL DAVILA [facility]
--- OUTSIDE RECORDS SUMMARY | 2025-01-26 07:53 | XMS_ITS | Encounter Summary ---
Author Name [facility] [facility] [place] Address [address] [place] [id number] Care Team Providers Care Harpoon Engagement Planning Operator Name Role Phone CHRIS SENA Primary Care [...] Name Patient's Relationship to Policy Multani [facility] (WNR) MEDICARE (M) [facility] (WNR) Nov 15, 2016 [id number] ADRIENNE PUENTES ON PATIENT [facility] (WNR) MEDICARE ADVANTAGE MA PPOD VALUE DB DS Nov 15, 2017 [id number] ADRIENNE PUENTES ON PATIENT Selected Encounter This section includes the information on record at [facility] for the Encounter. Date/Time Encounter Type Encounter Description Reason Pro vider Source Jan 26, 2025 11:53 AM Outpatient Encounter ADMIN PAT ACTIVTIES (MASNONCT) I[facility] Encounter Template Text not used by [facility] Plan of Treatment: Future Appointments (+ 6 [...] 20 appointments. The data comes from all [facility] treatment [facility]. Appointment Date/Time Appointment Type Appointme nt Facility Name Feb 13, 2025 01:00 PM [facility] Feb 22, 2025 08:30 AM [facility]IC[facility] [place] [facility] Mar 02, 2025 01:00 PM AMBULATORY - MEDICINE [facility] [place] [facility] Mar 06, 2025 03:00 PM AMBULATORY - PSYCHIATRY [facility] March 16, 2025 11:30 AM AMBULATORY - MEDICINE [facility] April 03, 2025 09:00 AM AMBULATORY - NONE [facility] [place] [facility] Apr 17, 2025 03:00 PM AMBULATORY - PSYCHIATRY [facility] May 01, 2025 08:00 AM AMBULATORY - MEDICINE [facility] [place] [facility] Jun 04, 2025 09:00 AM AMBULATORY - MEDICINE [facility] [place] [facility] Jun 12, 2025 07:00 AM AMBULATORY - MEDICINE [facility] [place] [facility] Jul 12, 2025 11:30 AM AMBULATORY - MEDICINE [facility] [place] [facility] Jul 20, 2025 09:30 AM AMBULATORY - MEDICINE [facility] Lab Results: +/- 30 days of the encounter This section includes the Chemistry and Hematology Lab Results on record with [facility] for the patient. Radiology Reports and Pathology Reports are provided separately, in subsequent sections. Lab Results This section contains the Chemistry/Hematology Results that were resulted 30 days before or 30 daysafter the date of the Encounter. Date/Time Source Result Type Result - Unit Interpretation Reference Range Specimen Type Comment Feb 13, 2025 01:48 PM [facility] LIPID PANEL, NON FASTING SERUM Specim en Type: SERUM No comment entered. Ordering Provider: GARRICK STINSON Report Released Date/Time: Feb 13, 2025 01:44 PM Reporting Lab: [address] [address] Performing Lab: [address] [address] CHOLESTEROL 106 mg/dL TRIGLYCERIDE 124 mg/dL 0-150 LDL calculated 35 mg/dL 0-129 CHOL/HDL 2.3 HDL CHOLESTEROL 46 mg/dL 40-60 Feb 13, 2025 01:48 PM [facility] VITAMIN D (25-OH) SERUM Specimen Type: SERUM No comment entered. Ordering Provider: GARRICK STINSON Report Released Date/Time: Feb 13, 2025 01:44 PM Reporting Lab: [address] [address] Performing Lab: [address] [address] VITAMIN D (25-OH) 44 ng/mL 20-50 Feb 13, 2025 01:48 PM [facility] LIVER FUNCTION SERUM Specimen Type: SERUM No comment entered. Ordering Provider: GARRICK STINSON Report Released Date/Time: Feb 13, 2025 01:44 PM Reporting Lab: [address] [address] Performing Lab: [address] [address] PROTEIN,TOTAL 7.1 g/dL 6.0-8.3 ALBUMIN 3.7 g/dL 3.5-5.0 ALKALINE PHOSPHATASE 123 U/L 40-150 AST 17 U/L 5-34 ALT 28 U/L BILIRUBIN, TOTAL 0.5 mg/dL 0.2-1.2 Feb 13, 2025 01:48 PM [facility] MICROALBUMIN CREATININE RATIO PANEL URINE Specimen Type: URINE No comment entered. Ordering Provider: GARRICK STINSON Report Released Date/Time: Feb 13, 2025 01:44 PM Reporting Lab: [address] [address] Performing Lab: [address] [address] MICROALBUMIN/CREATININE RATIO 54.1 mg/g H 0-29.9 MICROALBUMIN,QUANTITATIVE 3.8 mg/dL RR U NAVAIL CREATININE URINE 70.21 mg/dL Feb 13, 2025 01:48 PM [facility] BASIC METABOLIC PANEL (non-fasting) SERUM Specimen Type: SERUM No comment entered. Ordering Provider: GARRICK STINSON Report Released Date/Time: Feb 13, 2025 01:44 PM Reporting Lab: [address] [address] Performing Lab: [address] [address] UREA NITROGEN 14 mg/dL 7-25 GLUCOSE 298 mg/dL H 65-100 SODIUM 136 mmol/L 135-145 POTASSIUM 4.7 mmol/L 3.5-5.0 CHLORIDE 105 mmol/L 100-110 CO2 23 meq/L 20-30 CALCIUM 9.1 mg/dL 8.5-10.2 CREATININE, Serum 0.70 mg/dL 0.50-1.40 eGFR(CKD-EPI 2020) >90 mL/min >60 Feb 13, 2025 01:48 PM [facility] TSH SERUM Sp ecimen Type: SERUM No comment entered. Ordering Provider: GRARICK STINSON Report Released Date/Time: Feb 13, 2025 01:44 PM Reporting Lab: [address] [address] Performing Lab: [address] [address] TSH 0.54 u[IU]/mL 0.35-5.00 Feb 13, 2025 01:48 PM [facility] HEMOGLOBIN A1C PANEL BLOOD Specimen T ype: [...] Feb 13, 2025 01:44 PM Reporting Lab: [address] [address] Performing Lab: [address] [address] HEMOGLOBIN A1C 6.8 H 4.0-5.6 Feb 13, 2025 01:48 PM [facility] CBC AND DIFF (AUTO) BLOOD Specimen Ty pe: BLOOD No comment entered. Ordering Provider: GARRICK STINSON Report Released Date/Time: Feb 13, 2025 01:44 PM Reporting [facility]: [facility] [address] [facility] [address] Performing Lab: [facility] [address] [facility] [address] WBC 8.54 10*3/uL 4.50-11.00 RBC 4.83 10*6/uL [...] and tobacco- related health factors from the [facility] facility where the Encounter took place. Current Smoking Status This section includes the most current smoking, or tobacco-related health factor, from the [facility] facility where the Encounter took place. Date/Time Current Smoking Status Comment [place] Aug 13, 2023 11:00 AM [place]-TOBACCO FORMER USER [facility] Tobacco Use History This section includes a history of the smoking, or tobacco-related health factors, that were collected on or before the date of the Encounter. The data comes from the [facility] facility where the Encounter took place. Date/Time Smoking Status/Tobacco Use Comment F acility Aug 13, 2023 11:00 AM [facility]-TOBACCO QUIT 15 YRS OR MORE [facility] Encounter Notes: All associated encounter notes This section contains the clinical notes associated to the Encounter. Date/Time Encounter Note(s) Provider Source Jan 26, 2025 11:53 AM PHARMACY NOTE: LOCAL TITLE: PHARMACY CUSTOMER CARE MEDICATION RENEWAL STANDARD TITLE: PHARMACY NOTE DATE OF NOTE: JAN 26, 2025@11:53 ENTRY DATE: JAN 26, 2025@11:53:24 AUTHOR: MALLIKA HUI EXP COSIGNER: URGENCY: STATUS: COMPLETED Date: Jan Division: [facility] Pt referred by Pharmacy Call Center for medication renewal: Non-controlled/maintenanc e medication Medications requested: [id number] DIVALPROEX 500MG 24HR (ER) SA TAB Defer to specialty clinic To be mailed . Please review and renew if appropriate. *This note was generated by [facility] Pharmacy Customer Care. If you have any questions or need assistance, do not contact this author. Please refer all questions to your local, on-site pharmacy departments. /davon/ MALLIKA HUI CPhT [place] [employer] ADJUSTER, [place]/PHARMACY CUSTOMER CARE Signed: 01/26/2025 11:53 Receipt Acknowledged By: 01/29/2025 12:06 /davon/ José Luis Ruiz APRN, STAFF CLINICAL NURSE SPECIALIST MALLIKA HUI [facility]
--- OUTSIDE RECORDS SUMMARY | 2025-02-13 09:00 | XMS_ITS | Encounter Summary ---
Author Name [facility] [place] [facility] [place] [facility] [place] Address [address] [place] [id number] Care Team Providers Care Anatomic Pathology Manager Name Role Phone CHRIS SENA Primary Care [...] Name Patient's Relationship to Policy Mult[facility] (WNR) MEDICARE (M) [facility] (WNR) Nov 15, 2016 [id number] ADRIENNE PUENTES ON PATIENT [facility] (WNR) MEDICARE ADVANTAGE [place] PPOD VALUE DB DS Nov 15, 2017 [id number] [phone] ADRIENNE PUENTES ON PATIENT Selected Encounter This section includes the information on record at [place] for the Encounter. Date/Time Encounter Type Encounter Description Reason Provider Source Feb 13, 2025 01:00 PM OFFICE O/P EST MOD 30 MIN PRIMARY CARE/MEDICINE ICD-10-CM E11.9 Type 2 diabetes mellitus without complications GARRICK STINSON Anju Encounter Template Text not used by [facility] Assessments - Encounter Diagnoses This section includes the primary and secondary diagnoses documented for the Encounter. Date/Time Primary/Secondary Diagnosis Diagnosis Name Provider Source Mar 05, 2025 02:20 PM PRIMARY Type 2 diabetes mellitus without complications MILADGARRICK [place] Mar 05, 2025 02:20 PM SECONDARY Carcinoma in situ of prostate MILADGARRICK [place] Mar 05, 2025 02:20 PM SECONDARY Essential (primary) hypertension MILADGARRICK [place] Mar 05, 2025 02:20 PM SECONDARY Hyperlipidemia, unspecified MILADGARRICK [place] Mar 05, 2025 02:20 PM SECONDARY Iron deficiency anemia, unspecified MILADGARRICK [place] Mar 05, 2025 02:20 PM SECONDARY Unspecified abdominal hernia without obstruction or gangrene GARRICK STINSON A [place] Plan of Treatment: Future Appointments (+ 6 months) and Future Tests (+/- 45 days) The Plan of Treatment section includes [facility] care activities for the [facility] This section includes future appointments and future orders which are active, pending or scheduled. Future Appointments This section includes appointments that were scheduled to occur 6 months from the date of the Encounter, up to a maximum of 20 appointments. The data comes from all [place] treatment facilities. Appointment Date/Time Appointment Type Appointme nt Facility Name Feb 22, 2025 08:30 AM AMBULATORY [facility]ICINE [facility] [place] [facility] Mar 02, 2025 01:00 PM AMBULATORY - MEDICINE [facility] [place] [facility] Mar 06, 2025 03:00 PM AMBULATORY - PSYCHIATRY [facility] March 16, 2025 11:30 AM AMBULATORY - MEDICINE [facility] April 03, 2025 09:00 AM AMBULATORY - NONE [facility] [place] [facility] Apr 17, 2025 03:00 PM AMBULATORY - PSYCHIATRY [facility] May 01, 2025 08:00 AM AMBULATORY - MEDICINE [facility] [place] [facility] Jun 04, 2025 09:00 AM AMBULATORY - MEDICINE [facility] [place] [facility] Jun 12, 2025 07:00 AM AMBULATORY - MEDICINE [facility] [place] [facility] Jul 12, 2025 11:30 AM AMBULATORY - MEDICINE [facility] [place] [facility] Jul 20, 2025 09:30 AM AMBULATORY - MEDICINE [facility] Aug 03, 2025 08:45 AM AMBULATORY - MEDICINE [facility] [place] [facility] Lab Results: +/- 30 days of the encounter This section includes the Chemistry and Hematology Lab Results on record with [place] for the patient. Radiology Reports and Pathology Reports are provided separately, in subsequent sections. Lab Results This section contains the Chemistry/Hematology Results that were resulted 30 days before or 30 daysafter the date of the Encounter. Date/Time Source Result Type Result - Unit Interpretation Reference Range Specimen Type Comment Feb 13, 2025 01:48 PM [place] VITAMIN D (25-OH) SERUM Specimen Type : SERUM No comment entered. Ordering Provider: GARRICK STINSON Report Released Date/Time: Feb 13, 2025 01:44 PM Reporting Lab: [address] [phone] Performing Lab: [address] [address] VITAMIN D (25-OH) 44 ng/mL 20-50 Feb 13, 2025 01:48 PM [place] LIPID PANEL, NON FASTING SERUM Specim en Type: SERUM No comment entered. Ordering Provider: GARRICK STINSON Report Released Date/Time: Feb 13, 2025 01:44 PM Reporting Lab: [address] [address] Performing Lab: [address] [address] CHOLESTEROL 106 mg/dL TRIGLYCERIDE 124 mg/dL 0-150 LDL calculated 35 mg/dL 0-129 CHOL/HDL 2.3 HDL CHOLESTEROL 46 mg/dL 40-60 Feb 13, 2025 01:48 PM [place] LIVER FUNCTION SERUM Specimen Type: SERUM No comment entered. Ordering Provider: GARRICK STINSON Report Released Date/Time: Feb 13, 2025 01:44 PM Reporting Lab: [address] [address] Performing Lab: [address] [address] PROTEIN,TOTAL 7.1 g/dL 6.0-8.3 ALBUMIN 3.7 g/dL 3.5-5.0 ALKALINE PHOSPHATASE 123 U/L 40-150 AST 17 U/L 5-34 ALT 28 U/L BILIRUBIN, TOTAL 0.5 mg/dL 0.2-1.2 Feb 13, 2025 01:48 PM [place] MICROALBUMIN CREATININE RATIO PANEL URINE Specimen Type: URINE No comment entered. Ordering Provider: GARRICK STINSON Report Released Date/Time: Feb 13, 2025 01:44 PM Reporting Lab: [address] [address] Performing Lab: [address] [address] MICROALBUMIN/CREATININE RATIO 54.1 mg/g H 0-29.9 MICROALBUMIN,QUANTITATIVE 3.8 mg/dL RR U NAVAIL CREATININE URINE 70.21 mg/dL Feb 13, 2025 01:48 PM [place] BASIC METABOLIC PANEL (non-fasting) SERUM Specimen Type: SERUM No comment entered. Ordering Provider: GARRICK STINSON Report Released Date/Time: Feb 13, 2025 01:44 PM Reporting Lab: [address] [address] Performing Lab: [address] [address] UREA NITROGEN 14 mg/dL 7-25 GLUCOSE 298 mg/dL H 65-100 SODIUM 136 mmol/L 135-145 POTASSIUM 4.7 mmol/L 3.5-5.0 CHLORIDE 105 mmol/L 100-110 CO2 23 meq/L 20-30 CALCIUM 9.1 mg/dL 8.5-10.2 CREATININE, Serum 0.70 mg/dL 0.50-1.40 eGFR(CKD-EPI 2020) >90 mL/min >60 Feb 13, 2025 01:48 PM [place] TSH SERUM Sp ecimen Type: SERUM No comment entered. Ordering Provider: GARRICK STINSON Report Released Date/Time: Feb 13, 2025 01:44 PM Reporting Lab: [address] [address] Performing Lab: [address] [address] TSH 0.54 u[IU]/mL 0.35-5.00 Feb 13, 2025 01:48 PM [place] HEMOGLOBIN A1C PANEL BLOOD Specimen T ype: [...] Feb 13, 2025 01:44 PM Reporting Lab: [address] [address] Performing Lab: [address] [address] HEMOGLOBIN A1C 6.8 H 4.0-5.6 Feb 13, 2025 01:48 PM [place] CBC AND DIFF (AUTO) BLOOD Specimen Ty pe: BLOOD No comment entered. Ordering Provider: GARRICK STINSON Report Released Date/Time: Feb 13, 2025 01:44 PM Reporting Lab: [address] [address] Performing Lab: [address] [address] WBC 8.54 10*3/uL 4.50-11.00 RBC 4.83 10*6/uL [...] 0.0 0.0-0.0 NRBC, ABS 0.00 10*3/uL 0.00-0.00 Vital Signs: All taken on the encounter date This section contains inpatient and outpatient Vital Signs collected on the date of the Encounter. Date/Time Temperature Pulse Blood Pressure Respiratory Rate SP02 Pain Height Weight Body Mass Index Source Feb 13, 2025 01:03 PM 97.6 89 136/69 19 98 68 181 28 [facility] Social History: Smoking Status (Most [...] Date/Time Current Smoking Status Comment Facil ity Jun 25, 2022 11:00 AM VA-TOBACCO QUIT 15 YRS OR MORE [place] Tobacco Use History This section includes a history of the smoking, or tobacco-related health factors, that were collected on or before the date of the Encounter. The data comes from the [place] facility where the Encounter took place. Date/Time Smoking Status/Tobacco Use Comment F acility Jun 25, 2022 11:00 AM VA-TOBACCO QUIT 15 YRS OR MORE [place] May 09, 2021 11:30 AM VA-TOBACCO FORMER USER [place] May 09, 2021 11:30 AM VA-TOBACCO QUIT 15 YRS OR MORE [place] May 23, 2020 10:54 AM VA-TOBACCO FORMER USER [place] May 23, 2020 10:54 AM VA-TOBACCO QUIT 15 YRS OR MORE [place] Aug 04, 2018 01:44 PM VA-TOBACCO FORMER USER [place] Aug 04, 2018 01:44 PM VA-TOBACCO QUIT 15 YRS OR MORE [place] Dec 21, 2017 11:00 AM QUIT TOBACCO USE > 7 YEARS AGO [place] Jan 13, 2017 11:37 AM QUIT TOBACCO USE > 7 YEARS AGO [place] Jan 21, 2016 01:05 PM QUIT TOBACCO USE > 7 YEARS AGO [place] Jun 30, 2005 02:26 PM HISTORY OF SMOKING [place] Apr 16, 2004 09:48 AM HISTORY OF SMOKING stopped tobacco 30 years ago [place] Oct 15, 2003 12:05 PM QUIT TOBACCO USE > 7 YEARS AGO [place] Sep 12, 2003 01:27 PM QUIT TOBACCO USE > 7 YEARS AGO [place] Nov 21, 2002 02:50 PM HISTORY OF SMOKING stopped tobacco 28 years ago [place] Nov 21, 2002 02:50 PM QUIT TOBACCO USE > 7 YEARS AGO stopped tobacco 28 years ago [place] Aug 18, 2001 10:18 AM HISTORY OF SMOKING QAUIT 25 YEARS AGO [place] Encounter Notes: All associated encounter notes This section contains the clinical notes associated to the Encounter. Date/Time Encounter Note(s) Provider Source Feb 13, 2025 01:49 PM PRIMARY CARE NURSE PRACTITIONER OUTPATIENT NOTE: LOCAL TITLE: NURSE PRACTITIONER OUTPATIENT NOTE STANDARD TITLE: PRIMARY CARE NURSE PRACTITIONER OUTPATIENT NOTE DATE OF NOTE: FEB 13, 2025@13:49 ENTRY DATE: FEB 13, 2025@13:49:32 AUTHOR: GARRICK STINSON COSIGNER: URGENCY: STATUS: COMPLETED PRIMARY CARE VISIT ANALILIA PUENTES, is a 79 yo WHITE MALE who [facility] the [facility]. TYPE OF VISIT: Face to face 79-year-old [place] with type II DM, prostate cancer status post radical prostatectomy and XRT in 2004 presented to the outpatient clinic in regular follow-up. EGDs 12/22/1906/03/2025 found normal duodenum but erosive gastritis in the stomach. Pathology not yet received. 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 Who presented to the ED 12/[address] inconclusive for pubic symphysis abscess. Thoracic surgery was consulted for concern for pubic symphysis abscess. CT abdomen/pelvis and PET/CT negative. Is no longer having pelvic pain. States he is feeling well. No recent falls. Recent labs and diagnostic studies were reviewed with the [place]. All medications were reconciled during this visit. HEALTHCARE PROVIDERS: PCP: [place] [facility]: Mckenna richards, Dr. Britt Thoracic surgery: [facility] GI: Ruth Villarreal Social Hx: The [place] lives alone after being in October 2024. He quit smoking in 1973. He has never alcohol or used marijuana. No regular exercise. HISTORY: PERIOD OF SERVICE - [employer] FROM Aug TO Feb COMBAT SERVICE INDICATED: No MEDICAL HISTORY Active Problem Aneurysm of aortic root I71.21 12/27/2023 DIONTE ADDISON Heart murmur R01.1 12/27/2023 DIONTE ADDISON Impacted cerumen in left ear H61.22 05/12/2023 DAVID CASTILLO Lump R22.2 02/04/2023 DAVID CASTILLO Arthropod bite wound W57.XXXA 02/04/2023 DAVID CASTILLO Ankle fracture (SNOMED CT 93340613) 04/14/2022 ANTONY CONWAY Onychomycosis of toenails B35.1 11/16/2018 TIFFANY CRUZ Urinary incontinence J42. 01/12/2019 ANTONY CONWAY History of malignant neoplasm of co 09/26/2019 ANTONY CONWAY Diabetes mellitus (SNOMED CT 606704 08/21/2015 GENARO SANON Osteoarthrosis, unspecified whether 02/27/2013 TONYA EPPERSON Animal Bite E906.3 09/18/2011 TONYA EPPERSON Iron deficiency anemia (SNOMED CT 8 04/22/2017 ANTONY CONWAY Obesity (SNOMED CT 686268633) E66.8 10/13/2017 SANON,GNEARO Cardiovascular Stress Test with Con 04/03/2008 NADYA PACKER Urinary Incontinence 788.30 06/29/2007 NADYA PACKER Fissure in Ano 565.0 06/07/2015 TONYA EPPERSON Hyperlipidemia (SNOMED CT 45303320) 10/13/2017 SANON,GENARO PROSTATE, MALIGN NEOPLASM 185. 06/17/2007 NADYA PACKER Psoriasis, skin or nails * (ICD-9-C 12/24/2006 NADYA PACKER Hypertension (SNOMED CT 37076095) I 09/17/2020 MANANTONY Bipolar disorder in full remission 03/02/2022 BRADLEY HERRERA Supraventricular tachycardia I47.1 10/26/2019 MANANTONY Depressive disorder (SNOMED CT 3548 06/20/2024 BRADLEY HERRERA Gastroesophageal reflux disease wit 09/17/2020 PATRICKKEITHNURYANTONY VITAL SIGNS: Temperature 97.6 F [36.4 C] (02/13/2025 13:03) Blood Pressure 136/69 (02/13/2025 13:03) Pulse 89 (02/13/2025 13:03) Respiration 19 (02/13/2025 13:03) Pain 0 (09/14/2024 13:18) BMI BMI: 27.6 Weight 181 lb [82.10 kg] (02/13/2025 13:03) Pulse Oximetry 98% (02/13/2025 13:03) ASSISTIVE DEVICES: None REVIEW OF SYSTEMS: CONSTITUTIONAL: No fevers, chills, weight loss/gain ENT: No sore throat, sneezing, congestion, rhinorrhea, anosmia, or ageusia. CARDIOVASCULAR: No chest pain, palpitations, or increased pedal edema RESPIRATORY: No SOB, cough, sputum, wheeze. GASTROINTESTINAL: Denies abd pain, N/V/D. No melena or hematochezia. No tenesmus or constipation. GENITOURINARY: No burning micturition. No urinary frequency or urgency. No nocturia. MUSCULOSKELETAL: No myalgias or arthralgias. PSYCHIATRIC: No new anxiety or depression. No sleep disturbance. NEUROLOGIC: No headaches, dizziness, numbness or tingling in the extremities, or unilateral weakness. EXAMINATION General: Well-appearing older in no obvious distress. Mental Status: Alert and oriented x4. Head: Normocephalic. Eyes: PERRLA. EOMI. Anicteric sclerae. ENT: Moist oral mucosa. Neck: Supple. No JVD. No thyromegaly or LAD. No bruit. Lungs: CTA. Normal chest excursion. Eupneic respirations. CV: Heart tones S1, S2. RRR. No M/G/R. No peripheral edema GI: Abdomen is soft and nontender. No palpable mass. : No CVA tenderness. Ext: No cyanosis or clubbing. No gross deformities. Neuro: CN II through XII grossly intact. Normal speech. Normal gait. Integument: Skin warm and dry. No concerning lesions or rashes. Psych: Normal mood and affect. Normal judgment. ALLERGIES: ========= Patient has answered NKA >> HEALTH MAINTENANCE PREVENTIVE MEDICINE GOALS Mental Health Treatment Plan DUE NOW Medication Reconciliation DUE NOW (Optional) Whole Health Documentation DUE NOW ASSESSMENT/PLAN: Active problems - Computerized Problem List is the source for the following: Diabetes mellitus (SNOMED CT 38601125): HbA1c 7.9% in August. This is primarily followed by his community PCP. He states he has improved his diet and expects his A1c to be lower. Agrees to recheck today. Continue daily Lantus and preprandial aspart insulin. Declined statin. Iron deficiency anemia (SNOMED CT 46892871): H/H have been stable. Recheck today. He denies any hematochezia or melena. Not maintained on an iron supplement. Obesity (SNOMED CT 486632396): BMI 27. Now following a diabetic diet. Hyperlipidemia (SNOMED CT 68919111): Lipid panel and LFTs normal in August. He has repeatedly declined statin therapy. Continue aspirin. Discussed heart healthy diet including reduction of animal fats and increased exercise as [place] components of overall CV health. He voiced understanding. PROSTATE, MALIGN NEOPLASM: Diagnosed in 2004 now status post radical prostatectomy and XRT. He does have some urinary incontinence. Following with urology at [facility]. Hypertension (SNOMED CT 73199727): Blood pressure within target range today at 136/59. Continue lisinopril 20 mg daily. Discussed heart healthy diet including avoidance of added salt at the table and increased exercise as [place] components of overall CV health. He voiced understanding. Gastroesophageal reflux disease with hiatal hernia: Following with Dr. Villarreal. Not maintained on a PPI although most recent EGD showed Tellez's. He has an appointment with GI next month and will inquire. He denies any symptoms. FOLLOW UP: RTC Below & sooner PRN UPCOMING APPOINTMENTS: 02/22/2025 08:30 [facility] DERMATOLOGY ORGANISATION AND METHODS ANALYST 1 AM 03/02/2025 13:00 [facility] OPTOMETRY 5 03/06/2025 15:00 [facility] DOCTOR OF CHIROPRACTIC 1 04/03/2025 08:30 [facility] DENTAL DMD 2 08/14/2025 13:[address] [facility] PACT 1 ORGANISATION AND METHODS ANALYST On the date of the encounter, I spent 35 minutes on some or all of the following: chart review, history, physical examination, treatment planning, education and counselling of the patient/family/caregiver, placing orders, communicating with other health care providers, and documentation in the electronic health record. No barriers; Patient understands and agrees to current treatment plan. If pt has any questions, concerns, or changes in current health status he/she will call or [facility]. Medication Reconciliation: Outpatient: Has the patient been taking medications as documented in the EMLR? YES: The patient has been taking medications as documented in the EMLR. Essential Medication List for Review used to complete this medication reconciliation. INCLUDED IN THIS LIST: Alphabetical list of active outpatient prescriptions dispensed from this [place] (local) and dispensed from another [place] or [facility] facility (remote) as well as inpatient orders [...] whether with a VA or non-VA provider. /davon/ GARRICK STINSON NP NURSE PRACTITIONER Signed: 03/05/2025 14:19 GARRICK STINSON
--- OUTSIDE RECORDS SUMMARY | 2025-02-20 14:22 | XMS_ITS ---
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 Date/Time Encounter Type Encounter Description Reason Pro vider Source Feb 20, 2025 06:22 PM Outpatient Encounter ADMIN PAT ACTIVTIES (MASNONCT) I[facility] Encounter Template Text not used by [place] Plan of Treatment: Future Appointments (+ 6 [...] 20 appointments. The data comes from all [place] treatment [facility]. Appointment Date/Time Appointment Type Appointme nt Facility Name Feb 22, 2025 08:30 AM [place] [facility] [place] [facility] Mar 02, 2025 01:00 PM [place] [facility] [place] [facility] Mar 06, 2025 03:00 PM AMBULATORY - PSYCHIATRY [facility] March 16, 2025 11:30 AM AMBULATORY - MEDICINE [facility] April 03, 2025 09:00 AM AMBUL[place]ORY - NONE [place] [facility] [place] [facility] Apr 17, 2025 03:00 PM AMBULATORY - PSYCHIATRY [facility] May 01, 2025 08:00 AM [place] [facility] [place] [facility] Jun 04, 2025 09:00 AM [place] [facility] [place] [facility] Jun 12, 2025 07:00 AM [place] [facility] [place] [facility] Jul 12, 2025 11:30 AM [place] [facility] [place] [facility] Jul 20, 2025 09:30 AM AMBULATORY - MEDICINE [facility] Aug 03, 2025 08:45 AM [place] [facility] [place] [facility] Lab Results: +/- 30 days of the encounter This section includes the Chemistry and Hematology Lab Results on record with [place] for the patient. Radiology Reports and Pathology Reports are provided separately, in subsequent sections. Lab Results This section contains the Chemistry/Hematology Results that were resulted 30 days before or 30 daysafter the date of the Encounter. Date/Time Source Result Type Result - Unit Interpretation Reference Range Specimen Type Comment Feb 13, 2025 01:48 PM [facility] VITAMIN D (25-OH) SERUM Specimen Type : SERUM No comment entered. Ordering Provider: GARRICK STINSON Report Released Date/Time: Feb 13, 2025 01:44 PM Reporting Lab: [facility] [address] [address] Performing Lab: [address] [address] VITAMIN D (25-OH) 44 ng/mL 20-50 Feb 13, 2025 01:48 PM [facility] MICROALBUMIN CREATININE RATIO PANEL URINE Specimen Type: URINE No comment entered. Ordering Provider: GARRICK STINSON Report Released Date/Time: Feb 13, 2025 01:44 PM Reporting Lab: [address] [address] Performing Lab: [address] [address] MICROALBUMIN/CREATININE RATIO 54.1 mg/g H 0-29.9 MICROALBUMIN,QUANTITATIVE 3.8 mg/dL RR U NAVAIL CREATININE URINE 70.21 mg/dL Feb 13, 2025 01:48 PM [facility] LIVER FUNCTION SERUM Specimen Type: SERUM No comment entered. Ordering Provider: GARRICK STINSON Report Released Date/Time: Feb 13, 2025 01:44 PM Reporting Lab: [address] [phone] Performing Lab: [address] [address] PROTEIN,TOTAL 7.1 g/dL 6.0-8.3 ALBUMIN 3.7 g/dL 3.5-5.0 ALKALINE PHOSPHATASE 123 U/L 40-150 AST 17 U/L 5-34 ALT 28 U/L BILIRUBIN, TOTAL 0.5 mg/dL 0.2-1.2 Feb 13, 2025 01:48 PM [facility] LIPID PANEL, NON FASTING SERUM Specim en Type: SERUM No comment entered. Ordering Provider: GARRICK STINSON Report Released Date/Time: Feb 13, 2025 01:44 PM Reporting Lab: [address] [phone] Performing Lab: [address] [phone] CHOLESTEROL 106 mg/dL TRIGLYCERIDE 124 mg/dL 0-150 LDL calculated 35 mg/dL 0-129 CHOL/HDL 2.3 HDL CHOLESTEROL 46 mg/dL 40-60 Feb 13, 2025 01:48 PM [facility] TSH SERUM Sp ecimen Type: SERUM No comment entered. Ordering Provider: GARRICK STINSON Report Released Date/Time: Feb 13, 2025 01:44 PM Reporting Lab: [address] [address] Performing Lab: [place] [id number] TSH 0.54 u[IU]/mL 0.35-5.00 Feb 13, 2025 01:48 PM [facility] HEMOGLOBIN A1C PANEL BLOOD Specimen T ype: [...] Feb 13, 2025 01:44 PM Reporting Lab: [place] [phone] Performing Lab: [place] [address] HEMOGLOBIN A1C 6.8 H 4.0-5.6 Feb 13, 2025 01:48 PM [facility] BASIC METABOLIC PANEL (non-fasting) SERUM Specimen Type: SERUM No comment entered. Ordering Provider: GARRICK STINSON Report Released Date/Time: Feb 13, 2025 01:44 PM Reporting Lab: [address] [address] Performing Lab: [address] [phone] UREA NITROGEN 14 mg/dL 7-25 GLUCOSE 298 mg/dL H 65-100 SODIUM 136 mmol/L 135-145 POTASSIUM 4.7 mmol/L 3.5-5.0 CHLORIDE 105 mmol/L 100-110 CO2 23 meq/L 20-30 CALCIUM 9.1 mg/dL 8.5-10.2 CREATININE, Serum 0.70 mg/dL 0.50-1.40 eGFR(CKD-EPI 2020) >90 mL/min >60 Feb 13, 2025 01:48 PM [facility] CBC AND DIFF (AUTO) BLOOD Specimen Ty pe: BLOOD No comment entered. Ordering Provider: GARRICK STINSON Report Released Date/Time: Feb 13, 2025 01:44 PM Reporting Lab: [facility] [address] [address] Performing Lab: [facility] [address] [phone] WBC 8.54 10*3/uL 4.50-11.00 RBC 4.83 10*6/uL [...] and tobacco- related health factors from the [place] facility where the Encounter took place. Current Smoking Status This section includes the most current smoking, or tobacco-related health factor, from the [place] facility where the Encounter took place. Date/Time Current Smoking Status Comment [place] Feb 13, 2025 01:04 PM VA-TOBACCO NEVER U SED CIGARETTES [facility] Tobacco Use History This section includes a history of the smoking, or tobacco-related health factors, that were collected on or before the date of the Encounter. The data comes from the [place] facility where the Encounter took place. Date/Time Smoking Status/Tobacco Use Comment F acility Feb 13, 2025 01:04 PM VA-TOBACCO NEVER U SED OTHER TYPE [facility] Aug 13, 2023 11:00 AM VA-TOBACCO FORMER USER [facility] Aug 13, 2023 11:00 AM [place]-TOBAC[place] QUIT 15 YRS OR MORE [facility] Encounter Notes: All associated encounter notes This section contains the clinical notes associated to the Encounter. Date/Time Encounter Note(s) Provider Source Feb 20, 2025 06:22 PM PHARMACY NOTE: LOCAL TITLE: PHARMACY CUSTOMER CARE MEDICATION RENEWAL STANDARD TITLE: PHARMACY NOTE DATE OF NOTE: FEB 20, 2025@18:22 ENTRY DATE: FEB 20, 2025@18:22:31 AUTHOR: GISELLA CRANE EXP COSIGNER: URGENCY: STATUS: COMPLETED Date: Feb Division: [facility] referred by Pharmacy Call Center for medication renewal: Non-controlled/maintenan ce medication Medications requested: [id number] ATORVASTATIN CALCIUM 80MG TAB This medication was last released 05/17/2023, but the requested to renew it. Please review. Defer to primary care provider To be mailed . Please review and renew if appropriate. *This note was generated by [facility] Pharmacy Customer Care. If you have any questions or need assistance, do not contact this author. Please refer all questions to your local, on-site pharmacy departments. /davon/ GISELLA CRANE CPhT Business Job Titles, [place]/Pharmacy Customer Care Signed: 02/20/2025 18:22 Receipt Acknowledged By: 02/26/2025 10:32 /davon/ GARRICK STINSON NP NURSE PRACTITIONER 02/21/2025 09:44 /davon/ QING MARINELLI REGISTERED NURSE ROSA MARIA,GISELLA ANSARIRConner [facility]
--- OUTSIDE RECORDS SUMMARY | 2025-02-22 04:30 | XMS_ITS ---
Author Name [facility] [place] Organization [facility] [place] [facility] [place] Address [address] [place] [id number] Care Team Providers Care Aerospace Manager Name Role Phone CHRIS SENA Primary [...] Name Patient's Relationship to Policy Multani [facility] (WNR) MEDICARE (M) [facility] (WNR) Nov 15, 2016 [id number] ADRIENNE PUENTES ON PATIENT [facility] (WNR) MEDICARE ADVANTAGE PR PPOD VALUE DB DS Nov 15, 2017 [id number] ADRIENNE PUENTES ON PATIENT Selected Encounter This section includes the information on record at [place] for the Encounter. Date/Time Encounter Type Encounter Description Reason Provider Source Feb 22, 2025 08:30 AM OFFICE O/P EST MOD 30 MIN DERMATOLOGY ICD-10-CM L40.0 Psoriasis vulgaris VANCE WOMACK IHAnju Encounter Template Text not used by [facility] Assessments - Encounter Diagnoses This section includes the primary and secondary diagnoses documented for the Encounter. Date/Time Primary/Secondary Diagnosis Diagnosis Name Provider Source Feb 22, 2025 09:03 AM PRIMARY Psoriasis vulgaris VANCE WOMACK [facility] [place] [facility] Feb 22, 2025 09:03 AM SECONDARY Other seborrheic dermatitis [facility]ANCE WOMACK [facility] Plan of Treatment: Future Appointments (+ 6 months) and Future Tests (+/- 45 days) The Plan of Treatment section includes future care activities for the patient from [facility]. This section includes future appointments and future orders which are active, pending or scheduled. Future Appointments This section includes appointments that were scheduled to occur 6 months from the date of the Encounter, up to a maximum of 20 appointments. The data comes from all [place] treatment facilities. Appointment Date/Time Appointment Type Appointme nt Facility Name Mar 02, 2025 01:00 PM AMBULATORY - MEDICINE [facility] [place] [facility] Mar 06, 2025 03:00 PM AMBULATORY - PSYCHIATRY [facility] March 16, 2025 11:30 AM AMBULATORY - MEDICINE [facility] April 03, 2025 09:00 AM AMBULATORY - NONE [facility] [place] [facility] Apr 17, 2025 03:00 PM AMBULATORY - PSYCHIATRY [facility] May 01, 2025 08:00 AM AMBULATORY - MEDICINE [facility] [place] [facility] Jun 04, 2025 09:00 AM AMBULATORY - MEDICINE [facility] [place] [facility] Jun 12, 2025 07:00 AM AMBULATORY - MEDICINE [facility] [place] [facility] Jul 12, 2025 11:30 AM AMBULATORY - MEDICINE [facility] [place] [facility] Jul 20, 2025 09:30 AM AMBULATORY - MEDICINE [facility] Aug 03, 2025 08:45 AM AMBULATORY - MEDICINE [facility] [place] [facility] Lab Results: +/- 30 days of [...] Type Comment Feb 13, 2025 01:48 PM JAVA LIPID PANEL, NON FASTING SERUM Specim en Type: SERUM No comment entered. Ordering Provider: GARRICK STINSON Report Released Date/Time: Feb 13, 2025 01:44 PM Reporting Lab: [facility] [address] [address] Performing Lab: [facility] [address] [address] CHOLESTEROL 106 mg/dL TRIGLYCERIDE 124 mg/dL 0-150 LDL calculated 35 mg/dL 0-129 CHOL/HDL 2.3 HDL CHOLESTEROL 46 mg/dL 40-60 Feb 13, 2025 01:48 PM JAVA VITAMIN D (25-OH) SERUM Specimen Type: SERUM No comment entered. Ordering Provider: GARRICK STINSON Report Released Date/Time: Feb 13, 2025 01:44 PM Reporting [facility] [address] [address] Performing Lab: [address] [address] VITAMIN D (25-OH) 44 ng/mL 20-50 Feb 13, 2025 01:48 PM JAVA LIVER FUNCTION SERUM Specimen Type: SERUM No comment entered. Ordering Provider: GARRICK STINSON Report Released Date/Time: Feb 13, 2025 01:44 PM Reporting [facility] [address] [address] Performing [facility]: [facility] [address] [address] PROTEIN,TOTAL 7.1 g/dL 6.0-8.3 ALBUMIN 3.7 g/dL 3.5-5.0 ALKALINE PHOSPHATASE 123 U/L 40-150 AST 17 U/L 5-34 ALT 28 U/L BILIRUBIN, TOTAL 0.5 mg/dL 0.2-1.2 Feb 13, 2025 01:48 PM JAVA MICROALBUMIN CREATININE RATIO PANEL URINE Specimen Type: URINE No comment entered. Ordering Provider: GARRICK STINSON Report Released Date/Time: Feb 13, 2025 01:44 PM Reporting Lab: [facility] [address] [address] Per[facility]: [facility] [address] [address] MICROALBUMIN/CREATININE RATIO 54.1 mg/g H 0-29.9 MICROALBUMIN,QUANTITATIVE 3.8 mg/dL RR U NAVAIL CREATININE URINE 70.21 mg/dL Feb 13, 2025 01:48 PM JAVA BASIC METABOLIC PANEL (non-fasting) SERUM Specimen Type: SERUM No comment entered. Ordering Provider: GARRICK STINSON Report Released Date/Time: Feb 13, 2025 01:44 PM Reporting [facility] [address] [address] Performing [facility]: [facility] [place] [address] UREA NITROGEN 14 mg/dL 7-25 GLUCOSE 298 mg/dL H 65-100 SODIUM 136 mmol/L 135-145 POTASSIUM 4.7 mmol/L 3.5-5.0 CHLORIDE 105 mmol/L 100-110 CO2 23 meq/L 20-30 CALCIUM 9.1 mg/dL 8.5-10.2 CREATININE, Serum 0.70 mg/dL 0.50-1.40 eGFR(CKD-EPI 2020) >90 mL/min >60 Feb 13, 2025 01:48 PM JAVA TSH SERUM Sp ecimen Type: SERUM No comment entered. Ordering Provider: GARRICK STINSON Report Released Date/Time: Feb 13, 2025 01:44 PM Reporting [facility] [address] [address] Performing [facility]: [facility] [address] [address] TSH 0.54 u[IU]/mL 0.35-5.00 Feb 13, 2025 01:48 PM JAVA HEMOGLOBIN A1C PANEL BLOOD Specimen T ype: [...] Feb 13, 2025 01:44 PM Reporting Lab: [facility] [address] [facility] [address] Performing Lab: [address] [address] HEMOGLOBIN A1C 6.8 H 4.0-5.6 Feb 13, 2025 01:48 PM JAVA CBC AND DIFF (AUTO) BLOOD Specimen Ty pe: BLOOD No comment entered. Ordering Provider: GARRICK STINSON Report Released Date/Time: Feb 13, 2025 01:44 PM Reporting Lab: [facility] [address] [facility] [address] Performing Lab: [address] [address] WBC 8.54 10*3/uL 4.50-11.00 RBC 4.83 10*6/uL [...] Date/Time Current Smoking Status Comment Facil ity Feb 13, 2025 01:04 PM VA-TOBACCO NEVER U SED CIGARETTES [facility] Tobacco Use History This section includes a history of the smoking, or tobacco-related health factors, that were collected on or before the date of the Encounter. The data comes from the [place] facility where the Encounter took place. Date/Time Smoking Status/Tobacco Use Comment F acility Feb 13, 2025 01:04 PM VA-TOBACCO NEVER U SED OTHER TYPE [facility] Aug 13, 2023 11:00 AM VA-TOBACCO FORMER USER [facility] Aug 13, 2023 11:00 AM VA-TOBACCO QUIT 15 YRS OR MORE [facility] Encounter Notes: All associated encounter notes This section contains the clinical notes associated to the Encounter. Date/Time Encounter Note(s) Provider Source Feb 22, 2025 08:37 AM DERMATOLOGY OUTPATIENT NOTE: LOCAL TITLE: DERMATOLOGY CLINIC NOTE STANDARD TITLE: DERMATOLOGY OUTPATIENT NOTE DATE OF NOTE: FEB 22, 2025@08:37 ENTRY DATE: FEB 22, 2025@08:37:08 AUTHOR: JACOBO WOMACK EXP COSIGNER: URGENCY: STATUS: COMPLETED FEB 22, 2025 ANALILIA PUENTES Aug 79 PATIENT PHONE - Patient here for FOLLOW UP CHIEF COMPLAINT: Psoriasis, Seborrheic Dermatitis HPI: Reviewed records from last Dermatology visit: 01/25/25; PsO stable w/prn betamethaone; [facility] stable w/keto 2% cream and prn desonide 0.05% cream. reports to have pruritis on his frontal scalp. denies any other new/changing/bleeding/non-heali ng lesions. REVIEW OF SYSTEMS: Constitutional-neg Skin/Hair/Nails-see HPI DermHx: -Denies h/o MM or NMSC -PsO - on topicals -[facility] Family Hx: Denies known fam h/o MM PastMedHx: Reviewed. History of Sun Exposure/Sunburns: Yes, none blistering Active Outpatient Medications (including Supplies): Active Outpatient Medications Status 1) ACCU-CHEK GUIDE (GLUCOSE) TEST STRIP USE 1 STRIP TO TEST ACTIVE BLOOD SUGARS THREE TIMES A DAY 2) BRIEF,PROTECTION PLUS LARGE #[id number] USE ONE BRIEF ACTIVE DIRECTED SIX TIMES A DAY 3) BRIEF,PROTECTIVE [...] 30 UNITS ACTIVE SUBCUTANEOUSLY ONCE DAILY 12) KETOCONAZOLE 2% CREAM APPLY A THIN LAYER TOPICALLY TWICE ACTIVE DAILY FOR FOUR WEEKS, THEN NEEDED Indication: FOR SEBORRHEIC DERMATITIS 13) LANCET,SOFTCLIX DEVICE USE DEVICE DIRECTED BY PROVIDER ACTIVE Indication: DIABETES 14) LANCET,SOFTCLIX USE 1 LANCET DIRECTED THREE TIMES A DAY ACTIVE TO TEST BLOOD SUGAR Indication: DIABETES 15) LISINOPRIL 20MG TAB TAKE ONE TABLET BY MOUTH ONCE DAILY TO ACTIVE CONTROL BLOOD PRESSURE 16) NEEDLE,PEN 31G,5MM USE 1 NEEDLE SUBCUTANEOUSLY FOUR TIMES A ACTIVE DAY FOR USE WITH PEN DEVICE 17) OMEPRAZOLE 20MG EC CAP TAKE TWO CAPSULES BY MOUTH EVERY ACTIVE (S) MORNING 30 MINUTES BEFORE BREAKFAST Active Non-VA [...] VITAMIN D3 (CHOLECALCIFEROL) TAB BY MOUTH ACTIVE 24 Total Medications PHYSICAL EXAM: Genao Skintype II General-AxOx3, NAD, pleasant, breathing unlabored, speech clear Limited cutaneous examination, as permitted by the patient, including scalp, face, eyes, ears, neck, arms, hands, fingers Pertinent findings per below: -psoriasiform hyperpipgmented well-demarcated plaques with micaceous scale noted to bialteral elbows, L>R -no psoriatic nail changes noted -mild erythema and trace white scaling noted to nasolabial folds and chin [improved from prior visit] -no noted erythema, scale or lesions in sclap Diagnosis/Plan: #PsO -Location: bilat elbows -Chronic, stable -CONTINUE topical betamethasone as directed #[facility] -Location: nasolabial folds, chin -CONTINUE topical keto 2% cream -CONTINUE desonide 0.05% cream prn, max 14d/m --Application instructions discussed --Risks/benefits/alternatives discussed --Side effects including but not limited to thinning of the skin (atrophy), lightening (hypopigmentation), increased appearance of superficial blood vessels (telangiectasias) and stretch smith discussed. -START ketoconazole shampoo - given pruritis noted on scalp - likely nito derm. If no improvement in symptoms - will notify clinic - could consider trial of topical steroids ?pso RTC 1 yr, sooner PRN * Lester educated to RTC sylvie if any new, changing, symptomatic lesions. * Education on sun protection and avoidance strategies was provided. * Differential diagnosis, prescription options and risks/benefits were discussed with the patient, who consented to treatment plan. * Lester consented to photography for documentation if indicated. [...] of active outpatient prescriptions dispensed from this [place] (local) and dispensed from another [place] or [facility]D facility (remote) as well as [...] list may not be complete. Please check JobOnV. Allergies/ADRs (Tool #5) FACILITY ALLERGY/ADR -------- [facility] [place] [facility] No Known Allergies [facility] NO KNOWN ALLERGIES Med [facility] Elenacalderonjammie (Tool #1) INCLUDED IN THIS LIST: Alphabetical list of active outpatient prescriptions dispensed from this [facility] (local) and dispensed from another [place] or [facility] facility (remote) as well as inpatient orders (local pending and active), local clinic medications, locally documented non-VA medications, and local prescriptions that have or been discontinued in the past 90 days. Non-VA Meds Last Documented On: Dec 23, 2021 NOTE The display of VA prescriptions dispensed from another [place] or [facility]D facility (remote) is limited to active outpatient prescription entries matched to National Drug File at the originating site and may not include some items such as investigational drugs, compounds, etc. NOT INCLUDED IN THIS LIST: Medications self-entered by the patient into personal health records (i.e. Pull) are NOT included in this list. Non-VA medications documented outside this [place], remote inpatient orders (regardless of status) and [...] TIMES DAILY NEEDED FOR DRY EYE Rx# [id number] Last Released: 09/02/24 Qty/Days Supply: 45 Rx Expiration Date: 06/20/25 Refills Remainin Indication: FOR DRY EYE Non-VA CINNAMON CAP/TAB TAKE BY MOUTH Non-VA CYANOCOBALAMIN TAB TAKE BY MOUTH Medication prescribed by Non-VA provider. OUTPT DESONIDE 0.05% CREAM (Status = Active) APPLY A SMALL AMOUNT TOPICALLY TWICE DAILY NEEDED FOR FACIAL RASH. MAXIMUM OF 14 DAYS A MONTH Rx# [id number] Last Released: 01/04/25 Qty/Days Supply: 60 Rx Expiration Date: 12/29/25 Refills Remainin Indication: FOR SKIN INFLAMMATION OUTPT DICLOFENAC NA 1% TOP GEL (Status = Discontinued) APPLY 2 GRAMS TOPICALLY FOUR TIMES DAILY NEEDED FOR OSTEOARTHRITIS - USE DOSING CARD PROVIDED IN BOX Rx# [id number] Last Released: 10/27/24 Qty/Days Supply: 100 Rx Expiration Date: 04/20/25 Refills Remainin OUTPT DICLOFENAC NA 1% TOP GEL (Status = Active) APPLY 2 GRAMS TOPICALLY FOUR TIMES DAILY NEEDED FOR OSTEOARTHRITIS - USE DOSING CARD PROVIDED IN BOX Rx# [id number] Last Released: 02/14/25 Qty/Days Supply: Rx Expiration Date: 12/07/25 Refills Remainin OUTPT DIVALPROEX 500MG 24HR (ER) SA TAB (Status = Discontinued) TAKE ONE TABLET BY MOUTH TWICE DAILY FOR BIPOLAR DISORDER Rx# [id number] Last Released: 12/01/24 Qty/Days Supply: 6030 Rx Expiration Date: 06/21/25 Refills Remainin Indication: FOR BIPOLAR DISORDER OUTPT DIVALPROEX 500MG 24HR (ER) SA TAB (Status = Active) TAKE ONE TABLET BY MOUTH TWICE DAILY FOR BIPOLAR DISORDER Rx# [id number] Last Released: 02/01/25 Qty/Days Supply: 60 Rx Expiration Date: 01/30/26 Refills Remainin Indication: FOR BIPOLAR DISORDER OUTPT INSULIN,ASPART,HUMAN 100 UNIT/ML INJ (Status = Discontinued) INJECT 10 UNITS SUBCUTANEOUSLY EVERY MORNING AND INJECT 10 UNITS ONCE DAILY AT LUNCH AND INJECT 16 UNITS EVERY EVENING BEFORE SUPPER Rx# [id number] Last Released: 09/14/24 Qty/Days Supply: Rx Expiration Date: 03/27/25 Refills Remainin OUTPT INSULIN,ASPART,HUMAN 100 UNIT/ML INJ (Status = Active) INJECT 10 UNITS SUBCUTANEOUSLY EVERY MORNING AND INJECT 10 UNITS ONCE DAILY AT LUNCH AND INJECT 16 UNITS EVERY EVENING BEFORE SUPPER Rx# [id number] Last Released: 12/11/24 Qty/Days Supply: Rx Expiration Date: 12/07/25 Refills Remainin OUTPT INSULIN,GLARGINE,HUMAN 100 UNIT/ML INJ (Status = Active) INJECT 30 UNITS SUBCUTANEOUSLY ONCE DAILY Rx# [id number] Last Released: 01/17/25 Qty/Days Supply: Rx Expiration Date: 04/11/25 Refills Remainin OUTPT INSULIN,GLARGINE-YFGN 100UNIT/ML INJ (Status = Discontinued) INJECT 30 UNITS SUBCUTANEOUSLY ONCE DAILY Rx# [id number] Last Released: 09/14/24 Qty/Days Supply: Rx Expiration Date: 04/20/25 Refills Remainin OUTPT KETOCONAZOLE 2% CREAM (Status = Active) APPLY A THIN LAYER TOPICALLY TWICE DAILY FOR SEBORRHEIC DERMATITIS FOR FOUR WEEKS, THEN NEEDED Rx# [id number] Last Released: 01/30/25 Qty/Days Supply: 12030 Rx Expiration Date: 01/26/26 Refills Remainin Indication: FOR SEBORRHEIC DERMATITIS OUTPT LISINOPRIL 20MG TAB (Status = Discontinued) TAKE ONE TABLET BY MOUTH ONCE DAILY TO CONTROL BLOOD PRESSURE Rx# [id number] Last Released: 08/25/24 Qty/Days Supply: 90/90 Rx Expiration Date: 12/16/24 Refills Remainin OUTPT LISINOPRIL 20MG TAB (Status = Active) TAKE ONE TABLET BY MOUTH ONCE DAILY TO CONTROL BLOOD PRESSURE Rx# [id number] Last Released: 02/13/25 Qty/Days Supply: 90/90 Rx Expiration Date: 12/07/25 Refills Remainin Non-VA MAGNESIUM OXIDE TAB TAKE BY MOUTH Medication prescribed by Non-VA provider. Non-VA MULTIVITAMIN/MINERALS CAP/TAB TAKE ONE TABLET BY MOUTH ONCE DAILY Medication prescribed by Non-VA provider. OUTPT OMEPRAZOLE 20MG EC CAP (Status = Active/Suspended) TAKE TWO CAPSULES BY MOUTH EVERY MORNING 30 MINUTES BEFORE BREAKFAST Rx# [id number] Last Released: 02/13/25 Qty/Days Supply: 60/30 Rx Expiration Date: 11/22/25 Refills Remainin Non-VA TURMERIC CAP/TAB TAKE BY MOUTH Medication prescribed by Non-VA provider. Non-VA VITAMIN D3 (CHOLECALCIFEROL) TAB TAKE BY MOUTH Medication prescribed by Non-VA provider. SUPPLIES OUTPT ACCU-CHEK GUIDE (GLUCOSE) TEST STRIP (Status = Active) USE 1 STRIP TO TEST BLOOD SUGARS THREE TIMES A DAY Rx# [id number] Last Released: 07/20/24 Qty/Days Supply: 300/90 Rx Expiration Date: 07/12/25 Refills Remainin OUTPT BRIEF,PROTECTION PLUS LARGE #[id number] (Status = Active) USE ONE BRIEF DIRECTED SIX TIMES A DAY Rx# [id number] Last Released: 01/27/25 Qty/Days Supply: 216/30 Rx Expiration Date: 04/20/25 Refills Remainin OUTPT BRIEF,PROTECTIVE SUPER ABS LG ATTENDS (Status = Active) USE 1 BRIEF DIRECTED SIX TIMES A DAY URINARY AND BOWEL INCONTINENCE Rx# [id number] Last Released: 01/09/25 Qty/Days Supply: 216 Rx Expiration Date: 01/08/26 Refills Remainin Indication: URINARY AND BOWEL INCONTINENCE OUTPT INCONT LINER DEPEND GUARDS (Status = Active) USE 1 PAD TOPICALLY THREE TIMES DAILY NEEDED INCONTINENCE Rx# [id number] Last Released: 04/21/24 Qty/Days Supply: 312/90 Rx Expiration Date: 04/20/25 Refills Remainin Indication: INCONTINENCE OUTPT INSULIN SYRINGE 1ML 31G 8MM (Status = Active) USE 1 SYRINGE FOUR TIMES A DAY FOR INSULIN INJECTIONS Rx# [id number] Last Released: 12/14/24 Qty/Days Supply: 300/75 Rx Expiration Date: 02/27/25 Refills Remainin OUTPT LANCET,SOFTCLIX (Status = Active) USE 1 LANCET DIRECTED THREE TIMES A DAY TO TEST BLOOD SUGAR Rx# [id number] Last Released: 11/27/24 Qty/Days Supply: 300/90 Rx Expiration Date: 11/28/25 Refills Remainin Indication: DIABETES OUTPT LANCET,SOFTCLIX DEVICE (Status = Active) USE DEVICE DIRECTED BY PROVIDER Rx# [id number] Last Released: 11/27/24 Qty/Days Supply: 1 Rx Expiration Date: 02/25/25 Refills Remainin Indication: DIABETES OUTPT NEEDLE,PEN 31G,5MM (Status = Active) USE 1 NEEDLE SUBCUTANEOUSLY FOUR TIMES A DAY FOR USE WITH PEN DEVICE Rx# [id number] Last Released: 09/22/24 Qty/Days Supply: 400/90 Rx Expiration Date: 09/11/25 Refills Remainin /davon/ JACOBO WOMACK DNP, STRAW HAT PLUNGER OPERATOR-C NURSE PRACTITIONER Signed: 02/22/2025 09:03 JACOBO WOMACK [facility]
--- OUTSIDE RECORDS SUMMARY | 2025-03-02 09:00 | XMS_ITS ---
Author Name [facility] [place] Organization [facility] [place] Address [address] [place] [id number] Care Team Providers Care Vice President Of Talent Acquisition Name Role Phone CHRIS SENA Primary Care [...] [facility] (WNR) MEDICARE (M) [facility] (WNR) Nov 15, 2016 [id number] ADRIENNE PUENTES ON PATIENT [facility] (WNR) MEDICARE ADVANTAGE HI PPOD VALUE DB DS Nov 15, 2017 [id number] [phone] ADRIENNE PUENTES ON PATIENT Selected Encounter This section includes the information on record at [place] for the Encounter. Date/Time Encounter Type Encounter Description Reason Provider Source Mar 02, 2025 01:00 PM OFFICE O/P EST MOD 30 MIN OPTOMETRY ICD-10-CM E11.9 Type 2 diabetes mellitus without complications KADEEM SANTIAGO Encounter Template Text not used by VA Assessments - Encounter Diagnoses This section includes the primary and secondary diagnoses documented for the Encounter. Date/Time Primary/Secondary Diagnosis Diagnosis Name Provider Source Mar 03, 2025 06:19 AM PRIMARY Type 2 diabetes mellitus without complications OSHINSKIE,KADEEM NARD J [facility] [place] [facility] Mar 03, 2025 06:19 AM SECONDARY Age-related nuclear cataract, bilateral OSHINSKIE,KADEEM NARD J [facility] [place] [facility] Mar 03, 2025 06:19 AM SECONDARY Cortical age-related cataract, bilateral OSHINSKIE,KADEEM NARD J [facility] [place] [facility] Mar 03, 2025 06:19 AM SECONDARY Dry eye syndrome of bilateral lacrimal glands OSHINSKIE,KADEEM NARD J [facility] [place] [facility] Mar 03, 2025 06:19 AM SECONDARY Hypermetropia, bilateral OSHINSKIE,KADEEM NARD J [facility] [place] [facility] Mar 03, 2025 06:19 AM SECONDARY Presbyopia OSHINSKIE,KADEEM NARD J [facility] [place] [facility] Plan of Treatment: Future Appointments (+ 6 months) and Future Tests (+/- 45 days) The Plan of Treatment section includes future care activities for the patient [facility] This section includes future appointments and future orders which are active, pending or scheduled. Future Appointments This section includes appointments that were scheduled to occur 6 months from the date of the Encounter, up to a maximum of 20 appointments. The data comes from all [place] treatment facilities. Appointment Date/Time Appointment Type Appointme nt Facility Name Mar 06, 2025 03:00 PM AMBULATORY - PSYCHIATRY [facility] March 16, 2025 11:30 AM AMBULATORY - MEDICINE [facility] April 03, 2025 09:00 AM AMBULATORY - NONE [facility] [place] [facility] Apr 17, 2025 03:00 PM AMBULATORY - PSYCHIATRY [facility] May 01, 2025 08:00 AM AMBULATORY - MEDICINE [facility] [place] [facility] Jun 04, 2025 09:00 AM AMBULATORY - MEDICINE [facility] [place] Jun 12, 2025 07:00 AM AMBULATORY - MEDICINE [facility] [place] Jul 12, 2025 11:30 AM [facility] Jul 20, 2025 09:30 AM AMBULATORY - MEDICINE [facility] Aug 03, 2025 08:45 AM AMBULATORY - MEDICINE [facility] Active, Pending, and Scheduled Orders This section includes a listing of several types of active, pending, and scheduled orders, including clinic medications orders, diagnostic test orders, procedure orders and consult orders; where the start date of the order is 45 days before the date of the Encounter or 45 days after the date of theEncounter. The data comes from all [place] treatment facilities. Test Date/Time Test Type Test Details Facility Name April 10, 2025 03:53 PM Consult Order [facility] Lab Results: +/- 30 days of the encounter This section includes the Chemistry and Hematology Lab Results on record with [place] for the patient. Radiology Reports and Pathology Reports are provided separately, in subsequent sections. Lab Results This section contains the Chemistry/Hematology Results that were resulted 30 days before or 30 daysafter the date of the Encounter. Date/Time Source Result Type Result - Unit Interpretation Reference Range Specimen Type Comment Feb 13, 2025 01:48 PM [facility] VITAMIN D (25-OH) SERUM Specimen Type : SERUM No comment entered. Ordering Provider: GARRICK STINSON Report Released Date/Time: Feb 13, 2025 01:44 PM Reporting Lab: [address] [address] Performing Lab: [address] [address] VITAMIN D (25-OH) 44 ng/mL 20-50 Feb 13, 2025 01:48 PM [facility] LIPID PANEL, NON FASTING SERUM Specim en Type: SERUM No comment entered. Ordering Provider: GARRICK STINSON Report Released Date/Time: Feb 13, 2025 01:44 PM Reporting Lab: [address] [address] Performing Lab: [address] [address] CHOLESTEROL 106 mg/dL TRIGLYCERIDE 124 mg/dL 0-150 LDL calculated 35 mg/dL 0-129 CHOL/HDL 2.3 HDL CHOLESTEROL 46 mg/dL 40-60 Feb 13, 2025 01:48 PM [facility] MICROALBUMIN CREATININE RATIO PANEL URINE Specimen Type: URINE No comment entered. Ordering Provider: GARRICK STINSON Report Released Date/Time: Feb 13, 2025 01:44 PM Reporting Lab: [address] [address] Performing Lab: [address] [address] MICROALBUMIN/CREATININE RATIO 54.1 mg/g H 0-29.9 MICROALBUMIN,QUANTITATIVE 3.8 mg/dL RR U NAVAIL CREATININE URINE 70.21 mg/dL Feb 13, 2025 01:48 PM [facility] BASIC METABOLIC PANEL (non-fasting) SERUM Specimen Type: SERUM No comment entered. Ordering Provider: GARRICK STINSON Report Released Date/Time: Feb 13, 2025 01:44 PM Reporting Lab: [address] [address] Performing Lab: [address] [address] UREA NITROGEN 14 mg/dL 7-25 GLUCOSE 298 mg/dL H 65-100 SODIUM 136 mmol/L 135-145 POTASSIUM 4.7 mmol/L 3.5-5.0 CHLORIDE 105 mmol/L 100-110 CO2 23 meq/L 20-30 CALCIUM 9.1 mg/dL 8.5-10.2 CREATININE, Serum 0.70 mg/dL 0.50-1.40 eGFR(CKD-EPI 2020) >90 mL/min >60 Feb 13, 2025 01:48 PM [facility] TSH SERUM Sp ecimen Type: SERUM No comment entered. Ordering Provider: GARRICK STINSON Report Released Date/Time: Feb 13, 2025 01:44 PM Reporting Lab: [address] [address] Performing Lab: [address] [address] TSH 0.54 u[IU]/mL 0.35-5.00 Feb 13, 2025 01:48 PM [facility] LIVER FUNCTION SERUM Specimen Type: SERUM No comment entered. Ordering Provider: GARRICK STINSON Report Released Date/Time: Feb 13, 2025 01:44 PM Reporting Lab: [address] [address] Performing Lab: [address] [address] PROTEIN,TOTAL 7.1 g/dL 6.0-8.3 ALBUMIN 3.7 g/dL 3.5-5.0 ALKALINE PHOSPHATASE 123 U/L 40-150 AST 17 U/L 5-34 ALT 28 U/L BILIRUBIN, TOTAL 0.5 mg/dL 0.2-1.2 Feb 13, 2025 01:48 PM [facility] HEMOGLOBIN A1C PANEL BLOOD Specimen T ype: [...] Feb 13, 2025 01:44 PM Reporting Lab: [address] [phone] Performing Lab: [address] [address] HEMOGLOBIN A1C 6.8 H 4.0-5.6 Feb 13, 2025 01:48 PM [facility] CBC AND DIFF (AUTO) BLOOD Specimen Ty pe: BLOOD No comment entered. Ordering Provider: GARRICK STINSON Report Released Date/Time: Feb 13, 2025 01:44 PM Reporting Lab: [address] [address] Performing Lab: [address] [address] WBC 8.54 10*3/uL 4.50-11.00 RBC 4.83 10*6/uL [...] and tobacco- related health factors from the AL facility where the Encounter took place. Current Smoking Status This section includes the most current smoking, or tobacco-related health factor, from the AL facility where the Encounter took place. Date/Time Current Smoking Status Comment [place] Feb 13, 2025 01:04 PM VA-TOBACCO NEVER U SED [facility] Tobacco Use History This section includes a history of the smoking, or tobacco-related health factors, that were collected on or before the date of the Encounter. The data comes from the [place] facility where the Encounter took place. Date/Time Smoking Status/Tobacco Use Comment [place] Feb 13, 2025 01:04 PM VA-TOBACCO NEVER U SED OTHER TYPE [facility] [place] [facility] Aug 13, 2023 11:00 AM VA-TOBACCO FORMER USER [facility] [place] [facility] Aug 13, 2023 11:00 AM VA-TOBACCO QUIT 15 YRS OR MORE [facility] Encounter Notes: All associated encounter notes This section contains the clinical notes associated to the Encounter. Date/Time Encounter Note(s) Provider Source Mar 02, 2025 01:35 PM ADDENDUM: LOCAL TITLE: Addendum STANDARD TITLE: ADDENDUM DATE OF NOTE: MAR 02, 2025@13:35:59 ENTRY DATE: MAR 02, 2025@13:36 AUTHOR: MARLYN SANTIAGO EXP COSIGNER: URGENCY: STATUS: COMPLETED please order: OD +3.00 ds 0.00 X Add:0.00 Pzm:0.00 Dir: Prz2:0.00 Dir2: OS +3.25 ds 0.00 X Add:0.00 Pzm:0.00 Dir: Prz2:0.00 Dir2: FITTING INFORMATION NPD:66 [place]:R: L: SEG HT:R: L: Tint:None Shade:None VA Billable Items FRAME: [id number] BLACK [id number] Right Lens: POLY SINGLE VISION 1.586 POLY Left Lens: POLY SINGLE VISION 1.586 POLY /davon/ Marlyn Santiago OD Fee Basis Barista Signed: 03/02/2025 13:36 Receipt Acknowledged By: 03/02/2025 13:50 /davon/ Rosario Torres [employer] Health Patent Attorney --- Original Document --- 03/02/25 OPTOMETRY NOTE: Active problems - Computerized Problem List is the source for the followin. Aneurysm of aortic root 2. Heart murmur 3. Impacted cerumen in left ear 4. Lump 5. Arthropod bite wound 6. Ankle fracture (SNOMED CT 49307523) 7. Onychomycosis of toenails 8. Urinary incontinence 9. History of malignant neoplasm of colon 10. Diabetes mellitus (SNOMED CT 40603493) 11. Osteoarthrosis, unspecified whether generalized or localized, involving shou 12. Animal Bite 13. Iron deficiency anemia (SNOMED CT 55675905) 14. Obesity (SNOMED CT 950524124) 15. Cardiovascular Stress Test with Continuous Electrocardiographic Monitoring, 16. Urinary Incontinence 17. Fissure in Ano 18. Hyperlipidemia (SNOMED CT 20771197) 19. PROSTATE, MALIGN NEOPLASM 20. Psoriasis, skin or nails * 21. Hypertension (SNOMED CT 02185280) 22. Bipolar disorder in full remission (SNOMED CT 71763345) 23. Supraventricular tachycardia 24. Depressive disorder (SNOMED CT 18389169) 25. Gastroesophageal reflux disease with hiatal hernia Active Outpatient Medications (including Supplies): Active Outpatient Medications Status 1) ACCU-CHEK GUIDE (GLUCOSE) TEST STRIP USE 1 STRIP TO TEST ACTIVE BLOOD SUGARS THREE TIMES A DAY 2) BRIEF,PROTECTION PLUS LARGE #[id number] USE ONE BRIEF ACTIVE DIRECTED SIX TIMES [...] TIMES ACTIVE DAILY NEEDED Indication: INCONTINENCE 9) INSULIN,ASPART,HUMAN 100 UNIT/ML INJ INJECT 10 UNITS ACTIVE SUBCUTANEOUSLY EVERY MORNING AND INJECT 10 UNITS ONCE DAILY AT LUNCH AND INJECT 16 UNITS EVERY EVENING BEFORE SUPPER 10) INSULIN,GLARGINE,HUMAN 100 UNIT/ML INJ INJECT 30 UNITS ACTIVE SUBCUTANEOUSLY ONCE DAILY 11) KETOCONAZOLE 2% CREAM APPLY A THIN LAYER TOPICALLY TWICE ACTIVE DAILY FOR FOUR WEEKS, THEN NEEDED Indication: FOR SEBORRHEIC DERMATITIS 12) KETOCONAZOLE 2% SHAMPOO SHAMPOO SMALL AMOUNT TOPICALLY TWICE ACTIVE A WEEK NEEDED APPLY FOR 8 WEEKS, THEN NEEDED Indication: SCALP RASH 13) LANCET,SOFTCLIX USE 1 LANCET DIRECTED THREE [...] TAB BY MOUTH ACTIVE 23 Total Medications Allergies: Patient has answered NKA All medications including those prescribed by outside VA's, community providers, and all OTC meds were reviewed and reconciled with patient to the best of their abilities. This 79 year old MALE is seen today for annual CEE MELANIE: 06/01/23 Chief Complaint: Denied any changes in vision or ocular health concerns would like refill on AT would like new NVOs happy at distance without glasses Diabetic X 5-6 years Last A1C: 6.8 OHx: 1. 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 NSC OU 3. JERILYN OU 4. RE and presbyopia OU Ocular Medications: Refresh QHS OU (-) Pain: (-) FLANNERY: (-) Diplopia: (-) Flashes: (-) Floaters: (-) Amaurosis Fugax/Tia's: (-) Eye Injury: (-) Eye Surgery: (-) TBI FOHx: (-) Glaucoma/ARMD/Blindness VITALS (most recent, as listed in the electronic record): B/P: 136/69 (02/13/2025 13:03) Pulse: 89 (02/13/2025 13:03) Temperature: 97.6 F [36.4 C] (02/13/2025 13:03) Weight: 181 lb [82.10 kg] (02/13/2025 13:03) Height: 68 in [172.7 cm] (02/13/2025 13:03) BMI: BMI: 27.6 PERTINENT LABS: HEMOGLOBIN A1C TREND Collection DT Spec HGBA1c 02/13/2025 13:48 BLOOD 6.8 H 09/14/2024 13:38 BLOOD 7.9 H 12/22/2023 10:54 BLOOD 7.6 H 05/12/2023 13:30 BLOOD 7.2 H 01/28/2023 14:26 BLOOD 7.6 H (-) Smoker/Length of Time/PPD: Current Rx with last BCVA: OD: +0.50 sph 20/20 OS: +0.75 sph 20/20 ADD:+2.25 20/20 OU DVA without OD: 20/40-2/+2 OS: 20/40+1 OU: 20/30-1 DVA ( )sc ( x )cc - phoropter OD: 20/20 OS: 20/20 Pupils: PERRL (-)APD EOMs: SAFE OU, (-)Pain/Diplopia CVF (facial, peripheral): FTFC OU Subjective Refraction: OD: +0.50 sph 20/20 OS: +0.75 sph 20/20 ADD:+2.50 20/20 OU Final SRx: OD: +0.50 sph OS: +0.75 sph ADD:+2.50 All the above performed by student, reviewed by attending Anterior segment: Performed by student, repeated by attending Lids: trc blepharitis OU Conj: white and quiet OU Cornea: trc SPKs OU (-)k spindle OU AC: D&Q OU Angles: 4x4 OU Iris: flat and clear (-)NVI/TID OU Lens: 1+ NSC with 1+ ACC with peripheral cortical spoking and trc PSC not over visual axis OU (-)PXF OU Tonometry: Performed by student, reviewed by attending [ ] GAT [x ] iCare OD 20 mmHg OS 19 mmHg Time: 13:01 Last IOP OD: 16 OS: 16 Fundus exam: Dilated: xxxx Non dilated: Dilating Drops: 1GTT 1 % Tropicamide OU & 1GTT 2.5% Phenylephrine OU (Pt. ed. on side effects, dilation warning given and verbal consent obtained) Patient advised not to drive if they feel they have any symptoms which could affect their ability to drive safely. Patient advised not to engage in any activities which could put themselves or others at risk if they feel they have any symptoms which could affect their ability to perform those activities safely. Performed by student, repeated by attending Vit: clear OU C/D: 0.30 OU pink & healthy rim tissue OU (-)NVD OU Macula: flat and clear (-)CSME OU PPole: clear (-)NVE (-)dot/blot hemorrhage (-)exudates A/V: 2/3 Vessels: normal caliber (-)VB OU Periph: flat and intact (-)NVE, holes, tears, detachments 360 OU Assessment/Plan: 1. Type II Diabetes without evidence of retinopathy or macular edema OU. Last A1c 6.8 - Pt ed on today's findings and the possible ocular health and visual complications associated with diabetes as well as importance of attending follow up appts - Encouraged pt to monitor blood sugar and continue taking medications as prescribed by their PCP - Pt ed to call immediately if experiencing any sudden changes in vision - Monitor annually 2. Combined Form Cataracts OU - Pt. ed. on findings - cataracts are not visually significant and that surgery is not necessary at this time - Ed. on importance of UV protection and on symptoms of glare - Continue to monitor 3. Dry eyes OU; symptomatic - Pt. ed. on todays findings - Ordering Refresh - Ed. pt. to use BID-QID OU even on days when eyes are not feeling dry - Monitor 4. Hyperopia and presbyopia OU - Stable - Ordering duplication frames for NVO - Monitor Return to Clinic 1yr or earlier PRN Patient Education: Diabetes: Patient was educated regarding diabetes and related ocular complications including retinopathy and cataract formation as well as other related systemic complications. The importance of good blood sugar control, blood sugar testing as recommended by their PCP and the importance of timely follow up were all emphasized. Medication Reconciliation: Outpatient: Has the patient been taking medications as documented in the EMLR? YES: The patient has been taking medications as documented in the EMLR. Essential Medication List for Review used to complete this medication reconciliation. INCLUDED IN THIS LIST: Alphabetical list of active outpatient prescriptions dispensed from this VA (local) and dispensed from another VA or DoD facility (remote) as well as [...] whether with a VA or non-VA provider. Medication List: JLV Link Data on this list may not be complete. Please check JLV. Allergies/ADRs (Tool #5) FACILITY ALLERGY/ADR -------- [facility] No Known Allergies [facility] NO KNOWN ALLERGIES Med. Reconciliation (Tool #1) INCLUDED IN THIS LIST: Alphabetical list of active outpatient prescriptions dispensed from this AL (local) and dispensed from another AL or [facility] facility (remote) as well as inpatient orders (local pending and active), local clinic medications, locally documented non-VA medications, and local prescriptions that have or been discontinued in the past 90 days. Non-VA Meds Last Documented On: Dec 23, 2021 NOTE The display of VA prescriptions dispensed from another AL or DoD facility (remote) is limited to active outpatient prescription entries matched to National Drug File at the originating site and may not include some items such as investigational drugs, compounds, etc. NOT INCLUDED IN THIS LIST: Medications self-entered by the patient into personal health records (i.e. [employer]) are NOT included in this list. Non-VA medications documented outside this AL, remote inpatient orders (regardless of status) and [...] TIMES DAILY NEEDED FOR DRY EYE Rx# [id number] Last Released: 09/02/24 Qty/Days Supply: Rx Expiration Date: 06/20/25 Refills Remainin Indication: FOR DRY EYE OUTPT CARBOXYMETHYLCELLULOSE NA 0.5% OPH SOLN (Status = Pending) INSTILL 1 DROP INTO EACH EYE FOUR TIMES DAILY NEEDED FOR DRY EYE Renewed from Rx# [id number] Qty/Days Supply: Login Date: 03/02/25 Refills Ordered: 3 Non-VA CINNAMON CAP/TAB TAKE BY MOUTH Non-VA CYANOCOBALAMIN TAB TAKE BY MOUTH Medication prescribed by Non-VA provider. OUTPT DESONIDE 0.05% CREAM (Status = Active) APPLY A SMALL AMOUNT TOPICALLY TWICE DAILY NEEDED FOR FACIAL RASH. MAXIMUM OF 14 DAYS A MONTH Rx# [id number] Last Released: 01/04/25 Qty/Days Supply: Rx Expiration Date: 12/29/25 Refills Remainin Indication: FOR SKIN INFLAMMATION OUTPT DICLOFENAC NA 1% TOP GEL (Status = Discontinued) APPLY 2 GRAMS TOPICALLY FOUR TIMES DAILY NEEDED FOR OSTEOARTHRITIS - USE DOSING CARD PROVIDED IN BOX Rx# [id number] Last Released: 10/27/24 Qty/Days Supply: 100 Rx Expiration Date: 04/20/25 Refills Remainin OUTPT DICLOFENAC NA 1% TOP GEL (Status = Active) APPLY 2 GRAMS TOPICALLY FOUR TIMES DAILY NEEDED FOR OSTEOARTHRITIS - USE DOSING CARD PROVIDED IN BOX Rx# [id number] Last Released: 02/14/25 Qty/Days Supply: 10012 Rx Expiration Date: 12/07/25 Refills Remainin OUTPT DIVALPROEX 500MG 24HR (ER) SA TAB (Status = Discontinued) TAKE ONE TABLET BY MOUTH TWICE DAILY FOR BIPOLAR DISORDER Rx# [id number] Last Released: 12/01/24 Qty/Days Supply: 60 Rx Expiration Date: 06/21/25 Refills Remainin Indication: FOR BIPOLAR DISORDER OUTPT DIVALPROEX 500MG 24HR (ER) SA TAB (Status = Active) TAKE ONE TABLET BY MOUTH TWICE DAILY FOR BIPOLAR DISORDER Rx# [id number] Last Released: 02/01/25 Qty/Days Supply: 60 Rx Expiration Date: 01/30/26 Refills Remainin Indication: FOR BIPOLAR DISORDER OUTPT INSULIN,ASPART,HUMAN 100 UNIT/ML INJ (Status = Discontinued) INJECT 10 UNITS SUBCUTANEOUSLY EVERY MORNING AND INJECT 10 UNITS ONCE DAILY AT LUNCH AND INJECT 16 UNITS EVERY EVENING BEFORE SUPPER Rx# [id number] Last Released: 09/14/24 Qty/Days Supply: Rx Expiration Date: 03/27/25 Refills Remainin OUTPT INSULIN,ASPART,HUMAN 100 UNIT/ML INJ (Status = Active) INJECT 10 UNITS SUBCUTANEOUSLY EVERY MORNING AND INJECT 10 UNITS ONCE DAILY AT LUNCH AND INJECT 16 UNITS EVERY EVENING BEFORE SUPPER Rx# [id number] Last Released: 12/11/24 Qty/Days Supply: Rx Expiration Date: 12/07/25 Refills Remainin OUTPT INSULIN,GLARGINE,HUMAN 100 UNIT/ML INJ (Status = Active) INJECT 30 UNITS SUBCUTANEOUSLY ONCE DAILY Rx# [id number] Last Released: 01/17/25 Qty/Days Supply: Rx Expiration Date: 04/11/25 Refills Remainin OUTPT INSULIN,GLARGINE-YFGN 100UNIT/ML INJ (Status = Discontinued) INJECT 30 UNITS SUBCUTANEOUSLY ONCE DAILY Rx# [id number] Last Released: 09/14/24 Qty/Days Supply: Rx Expiration Date: 04/20/25 Refills Remainin OUTPT KETOCONAZOLE 2% CREAM (Status = Active) APPLY A THIN LAYER TOPICALLY TWICE DAILY FOR SEBORRHEIC DERMATITIS FOR FOUR WEEKS, THEN NEEDED Rx# [id number] Last Released: 01/30/25 Qty/Days Supply: Rx Expiration Date: 01/26/26 Refills Remainin Indication: FOR SEBORRHEIC DERMATITIS OUTPT KETOCONAZOLE 2% SHAMPOO (Status = Active) SHAMPOO SMALL AMOUNT TOPICALLY TWICE A WEEK NEEDED SCALP RASH APPLY FOR 8 WEEKS, THEN NEEDED Rx# [id number] Last Released: 02/26/25 Qty/Days Supply: 12030 Rx Expiration Date: 02/23/26 Refills Remainin Indication: SCALP RASH OUTPT LISINOPRIL 20MG TAB (Status = Discontinued) TAKE ONE TABLET BY MOUTH ONCE DAILY TO CONTROL BLOOD PRESSURE Rx# [id number] Last Released: 08/25/24 Qty/Days Supply: 90/90 Rx Expiration Date: 12/16/24 Refills Remainin OUTPT LISINOPRIL 20MG TAB (Status = Active) TAKE ONE TABLET BY MOUTH ONCE DAILY TO CONTROL BLOOD PRESSURE Rx# [id number] Last Released: 02/13/25 Qty/Days Supply: 90/90 Rx Expiration Date: 12/07/25 Refills Remainin Non-VA MAGNESIUM OXIDE TAB TAKE BY MOUTH Medication prescribed by Non-VA provider. Non-VA MULTIVITAMIN/MINERALS CAP/TAB TAKE ONE TABLET BY MOUTH ONCE DAILY Medication prescribed by Non-VA provider. OUTPT OMEPRAZOLE 20MG EC CAP (Status = Active) TAKE TWO CAPSULES BY MOUTH EVERY MORNING 30 MINUTES BEFORE BREAKFAST Rx# [id number] Last Released: 02/28/25 Qty/Days Supply: 60/30 Rx Expiration Date: 11/22/25 Refills Remainin Non-VA TURMERIC CAP/TAB TAKE BY MOUTH Medication prescribed by Non-VA provider. Non-VA VITAMIN D3 (CHOLECALCIFEROL) TAB TAKE BY MOUTH Medication prescribed by Non-VA provider. SUPPLIES OUTPT ACCU-CHEK GUIDE (GLUCOSE) TEST STRIP (Status = Active) USE 1 STRIP TO TEST BLOOD SUGARS THREE TIMES A DAY Rx# [id number] Last Released: 07/20/24 Qty/Days Supply: 300/90 Rx Expiration Date: 07/12/25 Refills Remainin OUTPT BRIEF,PROTECTION PLUS LARGE #[id number] (Status = Active) USE ONE BRIEF DIRECTED SIX TIMES A DAY Rx# [id number] Last Released: 01/27/25 Qty/Days Supply: 216/30 Rx Expiration Date: 04/20/25 Refills Remainin OUTPT BRIEF,PROTECTIVE SUPER ABS LG ATTENDS (Status = Active) USE 1 BRIEF DIRECTED SIX TIMES A DAY URINARY AND BOWEL INCONTINENCE Rx# [id number] Last Released: 01/09/25 Qty/Days Supply: 216 Rx Expiration Date: 01/08/26 Refills Remainin Indication: URINARY AND BOWEL INCONTINENCE OUTPT INCONT LINER DEPEND GUARDS (Status = Active) USE 1 PAD TOPICALLY THREE TIMES DAILY NEEDED INCONTINENCE Rx# [id number] Last Released: 04/21/24 Qty/Days Supply: Rx Expiration Date: 04/20/25 Refills Remainin Indication: INCONTINENCE OUTPT INSULIN SYRINGE 1ML 31G 8MM (Status = ) USE 1 SYRINGE FOUR TIMES A DAY FOR INSULIN INJECTIONS Rx# [id number] Last Released: 12/14/24 Qty/Days Supply: 300/75 Rx Expiration Date: 02/27/25 Refills Remainin OUTPT LANCET,SOFTCLIX (Status = Active) USE 1 LANCET DIRECTED THREE TIMES A DAY TO TEST BLOOD SUGAR Rx# [id number] Last Released: 11/27/24 Qty/Days Supply: 300 Rx Expiration Date: 11/28/25 Refills Remainin Indication: DIABETES OUTPT LANCET,SOFTCLIX DEVICE (Status = ) USE DEVICE DIRECTED BY PROVIDER Rx# [id number] Last Released: 11/27/24 Qty/Days Supply: Rx Expiration Date: 02/25/25 Refills Remainin Indication: DIABETES OUTPT NEEDLE,PEN 31G,5MM (Status = Active) USE 1 NEEDLE SUBCUTANEOUSLY FOUR TIMES A DAY FOR USE WITH PEN DEVICE Rx# [id number] Last Released: 09/22/24 Qty/Days Supply: 400/ Rx Expiration Date: 09/11/25 Refills Remainin PHARMACY TERMS AND POSSIBLE PATIENT ACTIONS INPT = AL inpatient order IV = AL intravenous medication OUTPT = AL outpatient prescription PHARMACY POSSIBLE PATIENT TERMS EXPLANATION ACTIONS -------- - ACTIVE A prescription that can be If you have refills, filled at the local VA pharmacy. you may request a refill of this prescription from your VA pharmacy. CLINIC A medication you received during If you have questions a visit to a VA clinic or about this medication emergency department. contact your VA healthcare team. DISCONTINUED A prescription your provider has Contact your [facility] stopped. It is no longer healthcare team if you available to be sent to you or need more of this picked up at the VA pharmacy medication. window. A prescription which is too old Contact your VA to fill. This does not refer to healthcare team if you the expiration date of the need more of this medication in the container. medication. NON-VA A medication that came from If this medication someplace other than a VA information is pharmacy. This may be a incorrect or out of prescription from either the VA date, please tell your or non VA providers that was VA healthcare team. filled outside the VA. Or, it may be an pycm-jii-huiklug (OTC), herbal, dietary supplements or sample medication. ON HOLD An active prescription that will Contact your VA not be filled until pharmacy pharmacy when you need resolves the issue. more of this medication. PARKED An active prescription that will Contact your VA not be filled until the patient pharmacy when you need requests it. this medication. PENDING This prescription order has been If you have been sent to the pharmacy for review instructed to start and is not ready yet. this medication now, contact your VA pharmacy. SUSPENDED An active prescription that is Contact your VA not scheduled to be filled yet. pharmacy if you need You should receive it before this medication now. you run out. ==== /davon/ Marlyn Santiago OD [employer]ee [employer] Barista Signed: 03/02/2025 13:33 for TAWANA ALMONTE OPTOMETRY STUDENT /vincent Santiago OD [employer] Barista Cosigned: 03/02/2025 13:33 03/02/2025 ADDENDUM STATUS: COMPLETED I reviewed all findings with the medical aides teacher. I performed the slit lamp exam and dilated fundus exam. Cataracts are mild and pt not bothered by them. No diabetic retinopathy noted OU. Progress note reviewed and edited as needed. I established the plan of care and educated the patient about his conditions. Total time spent reviewing on chart review, reviewing and taking history, performing the examination, evaluating any ancillary testing and counseling patient as well as entering orders for medications or optical devices including medical decision making was 43 minutes 3 minutes for refraction (if applicable) = total of 40 minutes Pt deferred receiving a list of current medications /es/ Marlyn Santiago OD [employer] Barista Signed: 03/02/2025 13:35 MARLYN SANTIAGO [facility] Mar 02, 2025 12:51 PM OPTOMETRY NOTE: LOCAL TITLE: OPTOMETRY NOTE STANDARD TITLE: OPTOMETRY NOTE DATE OF NOTE: MAR 02, 2025@12:51 ENTRY DATE: MAR 02, 2025@12:51:29 AUTHOR: TAWANA ALMONTE EXP COSIGNER: MARLYN SANTIAGO URGENCY: STATUS: COMPLETED OPTOMETRY NOTE Has ADDENDA Active problems - Computerized Problem List is the source for the followin. Aneurysm of aortic root 2. Heart murmur 3. Impacted cerumen in left ear 4. Lump 5. Arthropod bite wound 6. Ankle fracture (SNOMED CT 35955798) 7. Onychomycosis of toenails 8. Urinary incontinence 9. History of malignant neoplasm of colon 10. Diabetes mellitus (SNOMED CT 94733902) 11. Osteoarthrosis, unspecified whether generalized or localized, involving shou 12. Animal Bite 13. Iron deficiency anemia (SNOMED CT 12708605) 14. Obesity (SNOMED CT 407588919) 15. Cardiovascular Stress Test with Continuous Electrocardiographic Monitoring, 16. Urinary Incontinence 17. Fissure in Ano 18. Hyperlipidemia (SNOMED CT 59788896) 19. PROSTATE, MALIGN NEOPLASM 20. Psoriasis, skin or nails * 21. Hypertension (SNOMED CT 69944546) 22. Bipolar disorder in full remission (SNOMED CT 30605358) 23. Supraventricular tachycardia 24. Depressive disorder (SNOMED CT 64270481) 25. Gastroesophageal reflux disease with hiatal hernia Active Outpatient Medications (including Supplies): Active Outpatient Medications Status 1) ACCU-CHEK GUIDE (GLUCOSE) TEST STRIP USE 1 STRIP TO TEST ACTIVE BLOOD SUGARS THREE TIMES A DAY 2) BRIEF,PROTECTION PLUS LARGE #[id number] USE ONE BRIEF ACTIVE DIRECTED SIX TIMES [...] TIMES ACTIVE DAILY NEEDED Indication: INCONTINENCE 9) INSULIN,ASPART,HUMAN 100 UNIT/ML INJ INJECT 10 UNITS ACTIVE SUBCUTANEOUSLY EVERY MORNING AND INJECT 10 UNITS ONCE DAILY AT LUNCH AND INJECT 16 UNITS EVERY EVENING BEFORE SUPPER 10) INSULIN,GLARGINE,HUMAN 100 UNIT/ML INJ INJECT 30 UNITS ACTIVE SUBCUTANEOUSLY ONCE DAILY 11) KETOCONAZOLE 2% CREAM APPLY A THIN LAYER TOPICALLY TWICE ACTIVE DAILY FOR FOUR WEEKS, THEN NEEDED Indication: FOR SEBORRHEIC DERMATITIS 12) KETOCONAZOLE 2% SHAMPOO SHAMPOO SMALL AMOUNT TOPICALLY TWICE ACTIVE A WEEK NEEDED APPLY FOR 8 WEEKS, THEN NEEDED Indication: SCALP RASH 13) LANCET,SOFTCLIX USE 1 LANCET DIRECTED THREE [...] TAB BY MOUTH ACTIVE 23 Total Medications Allergies: Patient has answered NKA All medications including those prescribed by outside VA's, community providers, and all OTC meds were reviewed and reconciled with patient to the best of their abilities. This 79 year old MALE is seen today for annual CEE MELANIE: 06/01/23 Chief Complaint: Denied any changes in vision or ocular health concerns would like refill on AT would like new NVOs happy at distance without glasses Diabetic X 5-6 years Last A1C: 6.8 OHx: 1. 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 NSC OU 3. JERILYN OU 4. RE and presbyopia OU Ocular Medications: Refresh QHS OU (-) Pain: (-) FLANNERY: (-) Diplopia: (-) Flashes: (-) Floaters: (-) Amaurosis Fugax/Tia's: (-) Eye Injury: (-) Eye Surgery: (-) TBI FOHx: (-) Glaucoma/ARMD/Blindness VITALS (most recent, as listed in the electronic record): B/P: 136/69 (02/13/2025 13:03) Pulse: 89 (02/13/2025 13:03) Temperature: 97.6 F [36.4 C] (02/13/2025 13:03) Weight: 181 lb [82.10 kg] (02/13/2025 13:03) Height: 68 in [172.7 cm] (02/13/2025 13:03) BMI: BMI: 27.6 PERTINENT LABS: HEMOGLOBIN A1C TREND Collection DT Spec HGBA1c 02/13/2025 13:48 BLOOD 6.8 H 09/14/2024 13:38 BLOOD 7.9 H 12/22/2023 10:54 BLOOD 7.6 H 05/12/2023 13:30 BLOOD 7.2 H 01/28/2023 14:26 BLOOD 7.6 H (-) Smoker/Length of Time/PPD: Current Rx with last BCVA: OD: +0.50 sph 20/20 OS: +0.75 sph 20/20 ADD:+2.25 20/20 OU DVA without OD: 20/40-2/+2 OS: 20/40+1 OU: 20/30-1 DVA ( )sc ( x )cc - phoropter OD: 20/20 OS: 20/20 Pupils: PERRL (-)APD EOMs: SAFE OU, (-)Pain/Diplopia CVF (facial, peripheral): FTFC OU Subjective Refraction: OD: +0.50 sph 20/20 OS: +0.75 sph 20/20 ADD:+2.50 20/20 OU Final SRx: OD: +0.50 sph OS: +0.75 sph ADD:+2.50 All the above performed by student, reviewed by attending Anterior segment: Performed by student, repeated by attending Lids: trc blepharitis OU Conj: white and quiet OU Cornea: trc SPKs OU (-)k spindle OU AC: D&Q OU Angles: 4x4 OU Iris: flat and clear (-)NVI/TID OU Lens: 1+ NSC with 1+ ACC with peripheral cortical spoking and trc PSC not over visual axis OU (-)PXF OU Tonometry: Performed by student, reviewed by attending [ ] GAT [x ] iCare OD 20 mmHg OS 19 mmHg Time: 13:01 Last IOP OD: 16 OS: 16 Fundus exam: Dilated: xxxx Non dilated: Dilating Drops: 1GTT 1 % Tropicamide OU & 1GTT 2.5% Phenylephrine OU (Pt. ed. on side effects, dilation warning given and verbal consent obtained) Patient advised not to drive if they feel they have any symptoms which could affect their ability to drive safely. Patient advised not to engage in any activities which could put themselves or others at risk if they feel they have any symptoms which could affect their ability to perform those activities safely. Performed by student, repeated by attending Vit: clear OU C/D: 0.30 OU pink & healthy rim tissue OU (-)NVD OU Macula: flat and clear (-)CSME OU PPole: clear (-)NVE (-)dot/blot hemorrhage (-)exudates A/V: 2/3 Vessels: normal caliber (-)VB OU Periph: flat and intact (-)NVE, holes, tears, detachments 360 OU Assessment/Plan: 1. Type II Diabetes without evidence of retinopathy or macular edema OU. Last A1c 6.8 - Pt ed on today's findings and the possible ocular health and visual complications associated with diabetes as well as importance of attending follow up appts - Encouraged pt to monitor blood sugar and continue taking medications as prescribed by their PCP - Pt ed to call immediately if experiencing any sudden changes in vision - Monitor annually 2. Combined Form Cataracts OU - Pt. ed. on findings - cataracts are not visually significant and that surgery is not necessary at this time - Ed. on importance of UV protection and on symptoms of glare - Continue to monitor 3. Dry eyes OU; symptomatic - Pt. ed. on todays findings - Ordering Refresh - Ed. pt. to use BID-QID OU even on days when eyes are not feeling dry - Monitor 4. Hyperopia and presbyopia OU - Stable - Ordering duplication frames for NVO - Monitor Return to Clinic 1yr or earlier PRN Patient Education: Diabetes: Patient was educated regarding diabetes and related ocular complications including retinopathy and cataract formation as well as other related systemic complications. The importance of good blood sugar control, blood sugar testing as recommended by their PCP and the importance of timely follow up were all emphasized. Medication Reconciliation: Outpatient: Has the patient been taking medications as documented in the EMLR? YES: The patient has been taking medications as documented in the EMLR. Essential Medication List for Review used to complete this medication reconciliation. INCLUDED IN THIS LIST: Alphabetical list of active outpatient prescriptions dispensed from this AL (local) and dispensed from another AL or [facility] facility (remote) as well as inpatient [...] whether with a VA or non-VA provider. Medication List: JLV Link Data on this list may not be complete. Please check JLV. Allergies/ADRs (Tool #5) FACILITY ALLERGY/ADR -------- [facility] No Known Allergies [facility] NO KNOWN ALLERGIES Med. Reconciliation (Tool #1) INCLUDED IN THIS LIST: Alphabetical list of active outpatient prescriptions dispensed from this VA (local) and dispensed from another AL or [facility] facility (remote) as well as inpatient orders (local pending and active), local clinic medications, locally documented non-VA medications, and local prescriptions that have or been discontinued in the past 90 days. Non-VA Meds Last Documented On: Dec 23, 2021 NOTE The display of VA prescriptions dispensed from another AL or [facility] facility (remote) is limited to active outpatient prescription entries matched to National Drug File at the originating site and may not include some items such as investigational drugs, compounds, etc. NOT INCLUDED IN THIS LIST: Medications self-entered by the patient into personal health records (i.e. [employer]) are NOT included in this list. Non-VA medications documented outside this AL, remote inpatient orders (regardless of status) and [...] TIMES DAILY NEEDED FOR DRY EYE Rx# [id number] Last Released: 09/02/24 Qty/Days Supply: Rx Expiration Date: 06/20/25 Refills Remainin Indication: FOR DRY EYE OUTPT CARBOXYMETHYLCELLULOSE NA 0.5% OPH SOLN (Status = Pending) INSTILL 1 DROP INTO EACH EYE FOUR TIMES DAILY NEEDED FOR DRY EYE Renewed from Rx# [id number] Qty/Days Supply: Login Date: 03/02/25 Refills Ordered: 3 Non-VA CINNAMON CAP/TAB TAKE BY MOUTH Non-VA CYANOCOBALAMIN TAB TAKE BY MOUTH Medication prescribed by Non-VA provider. OUTPT DESONIDE 0.05% CREAM (Status = Active) APPLY A SMALL AMOUNT TOPICALLY TWICE DAILY NEEDED FOR FACIAL RASH. MAXIMUM OF 14 DAYS A MONTH Rx# [id number] Last Released: 01/04/25 Qty/Days Supply: Rx Expiration Date: 12/29/25 Refills Remainin Indication: FOR SKIN INFLAMMATION OUTPT DICLOFENAC NA 1% TOP GEL (Status = Discontinued) APPLY 2 GRAMS TOPICALLY FOUR TIMES DAILY NEEDED FOR OSTEOARTHRITIS - USE DOSING CARD PROVIDED IN BOX Rx# [id number] Last Released: 10/27/24 Qty/Days Supply: Rx Expiration Date: 04/20/25 Refills Remainin OUTPT DICLOFENAC NA 1% TOP GEL (Status = Active) APPLY 2 GRAMS TOPICALLY FOUR TIMES DAILY NEEDED FOR OSTEOARTHRITIS - USE DOSING CARD PROVIDED IN BOX Rx# [id number] Last Released: 02/14/25 Qty/Days Supply: Rx Expiration Date: 12/07/25 Refills Remainin OUTPT DIVALPROEX 500MG 24HR (ER) SA TAB (Status = Discontinued) TAKE ONE TABLET BY MOUTH TWICE DAILY FOR BIPOLAR DISORDER Rx# [id number] Last Released: 12/01/24 Qty/Days Supply: 60 Rx Expiration Date: 06/21/25 Refills Remainin Indication: FOR BIPOLAR DISORDER OUTPT DIVALPROEX 500MG 24HR (ER) SA TAB (Status = Active) TAKE ONE TABLET BY MOUTH TWICE DAILY FOR BIPOLAR DISORDER Rx# [id number] Last Released: 02/01/25 Qty/Days Supply: 60 Rx Expiration Date: 01/30/26 Refills Remainin Indication: FOR BIPOLAR DISORDER OUTPT INSULIN,ASPART,HUMAN 100 UNIT/ML INJ (Status = Discontinued) INJECT 10 UNITS SUBCUTANEOUSLY EVERY MORNING AND INJECT 10 UNITS ONCE DAILY AT LUNCH AND INJECT 16 UNITS EVERY EVENING BEFORE SUPPER Rx# [id number] Last Released: 09/14/24 Qty/Days Supply: Rx Expiration Date: 03/27/25 Refills Remainin OUTPT INSULIN,ASPART,HUMAN 100 UNIT/ML INJ (Status = Active) INJECT 10 UNITS SUBCUTANEOUSLY EVERY MORNING AND INJECT 10 UNITS ONCE DAILY AT LUNCH AND INJECT 16 UNITS EVERY EVENING BEFORE SUPPER Rx# [id number] Last Released: 12/11/24 Qty/Days Supply: Rx Expiration Date: 12/07/25 Refills Remainin OUTPT INSULIN,GLARGINE,HUMAN 100 UNIT/ML INJ (Status = Active) INJECT 30 UNITS SUBCUTANEOUSLY ONCE DAILY Rx# [id number] Last Released: 01/17/25 Qty/Days Supply: Rx Expiration Date: 04/11/25 Refills Remainin OUTPT INSULIN,GLARGINE-YFGN 100UNIT/ML INJ (Status = Discontinued) INJECT 30 UNITS SUBCUTANEOUSLY ONCE DAILY Rx# [id number] Last Released: 09/14/24 Qty/Days Supply: Rx Expiration Date: 04/20/25 Refills Remainin OUTPT KETOCONAZOLE 2% CREAM (Status = Active) APPLY A THIN LAYER TOPICALLY TWICE DAILY FOR SEBORRHEIC DERMATITIS FOR FOUR WEEKS, THEN NEEDED Rx# [id number] Last Released: 01/30/25 Qty/Days Supply: 120/30 Rx Expiration Date: 01/26/26 Refills Remainin Indication: FOR SEBORRHEIC DERMATITIS OUTPT KETOCONAZOLE 2% SHAMPOO (Status = Active) SHAMPOO SMALL AMOUNT TOPICALLY TWICE A WEEK NEEDED SCALP RASH APPLY FOR 8 WEEKS, THEN NEEDED Rx# [id number] Last Released: 02/26/25 Qty/Days Supply: 12030 Rx Expiration Date: 02/23/26 Refills Remainin Indication: SCALP RASH OUTPT LISINOPRIL 20MG TAB (Status = Discontinued) TAKE ONE TABLET BY MOUTH ONCE DAILY TO CONTROL BLOOD PRESSURE Rx# [id number] Last Released: 08/25/24 Qty/Days Supply: 90/90 Rx Expiration Date: 12/16/24 Refills Remainin OUTPT LISINOPRIL 20MG TAB (Status = Active) TAKE ONE TABLET BY MOUTH ONCE DAILY TO CONTROL BLOOD PRESSURE Rx# [id number] Last Released: 02/13/25 Qty/Days Supply: 90/90 Rx Expiration Date: 12/07/25 Refills Remainin Non-VA MAGNESIUM OXIDE TAB TAKE BY MOUTH Medication prescribed by Non-VA provider. Non-VA MULTIVITAMIN/MINERALS CAP/TAB TAKE ONE TABLET BY MOUTH ONCE DAILY Medication prescribed by Non-VA provider. OUTPT OMEPRAZOLE 20MG EC CAP (Status = Active) TAKE TWO CAPSULES BY MOUTH EVERY MORNING 30 MINUTES BEFORE BREAKFAST Rx# [id number] Last Released: 02/28/25 Qty/Days Supply: 60/30 Rx Expiration Date: 11/22/25 Refills Remainin Non-VA TURMERIC CAP/TAB TAKE BY MOUTH Medication prescribed by Non-VA provider. Non-VA VITAMIN D3 (CHOLECALCIFEROL) TAB TAKE BY MOUTH Medication prescribed by Non-VA provider. SUPPLIES OUTPT ACCU-CHEK GUIDE (GLUCOSE) TEST STRIP (Status = Active) USE 1 STRIP TO TEST BLOOD SUGARS THREE TIMES A DAY Rx# [id number] Last Released: 07/20/24 Qty/Days Supply: 300/ Rx Expiration Date: 07/12/25 Refills Remainin OUTPT BRIEF,PROTECTION PLUS LARGE #[id number] (Status = Active) USE ONE BRIEF DIRECTED SIX TIMES A DAY Rx# [id number] Last Released: 01/27/25 Qty/Days Supply: 216 Rx Expiration Date: 04/20/25 Refills Remainin OUTPT BRIEF,PROTECTIVE SUPER ABS LG ATTENDS (Status = Active) USE 1 BRIEF DIRECTED SIX TIMES A DAY URINARY AND BOWEL INCONTINENCE Rx# [id number] Last Released: 01/09/25 Qty/Days Supply: 216 Rx Expiration Date: 01/08/26 Refills Remainin Indication: URINARY AND BOWEL INCONTINENCE OUTPT INCONT LINER DEPEND GUARDS (Status = Active) USE 1 PAD TOPICALLY THREE TIMES DAILY NEEDED INCONTINENCE Rx# [id number] Last Released: 04/21/24 Qty/Days Supply: 312/90 Rx Expiration Date: 04/20/25 Refills Remainin Indication: INCONTINENCE OUTPT INSULIN SYRINGE 1ML 31G 8MM (Status = ) USE 1 SYRINGE FOUR TIMES A DAY FOR INSULIN INJECTIONS Rx# [id number] Last Released: 12/14/24 Qty/Days Supply: 300/75 Rx Expiration Date: 02/27/25 Refills Remainin OUTPT LANCET,SOFTCLIX (Status = Active) USE 1 LANCET DIRECTED THREE TIMES A DAY TO TEST BLOOD SUGAR Rx# [id number] Last Released: 11/27/24 Qty/Days Supply: 300/90 Rx Expiration Date: 11/28/25 Refills Remainin Indication: DIABETES OUTPT LANCET,SOFTCLIX DEVICE (Status = ) USE DEVICE DIRECTED BY PROVIDER Rx# [id number] Last Released: 11/27/24 Qty/Days Supply: 1 Rx Expiration Date: 02/25/25 Refills Remainin Indication: DIABETES OUTPT NEEDLE,PEN 31G,5MM (Status = Active) USE 1 NEEDLE SUBCUTANEOUSLY FOUR TIMES A DAY FOR USE WITH PEN DEVICE Rx# [id number] Last Released: 09/22/24 Qty/Days Supply: 400/90 Rx Expiration Date: 09/11/25 Refills Remainin PHARMACY TERMS AND POSSIBLE PATIENT ACTIONS INPT = AL inpatient order IV = AL intravenous medication OUTPT = AL outpatient prescription PHARMACY POSSIBLE PATIENT TERMS EXPLANATION ACTIONS -------- - ACTIVE A prescription that can be If you have refills, filled at the local AL pharmacy. you may request a refill of this prescription from your AL pharmacy. CLINIC A medication you received during If you have questions a visit to a AL clinic or about this medication emergency department. contact your VA healthcare team. DISCONTINUED A prescription your provider has Contact your VA stopped. It is no longer healthcare team if you available to be sent to you or need more of this picked up at the AL pharmacy medication. window. A prescription which is too old Contact your VA to fill. This does not refer to healthcare team if you the expiration date of the need more of this medication in the container. medication. NON-VA A medication that came from If this medication someplace other than a VA information is pharmacy. This may be a incorrect or out of prescription from either the VA date, please tell your or non VA providers that was VA healthcare team. filled outside the VA. Or, it may be an [id number] (OTC), herbal, dietary supplements or sample medication. ON HOLD An active prescription that will Contact your VA not be filled until pharmacy pharmacy when you need resolves the issue. more of this medication. PARKED An active prescription that will Contact your VA not be filled until the patient pharmacy when you need requests it. this medication. PENDING This prescription order has been If you have been sent to the pharmacy for review instructed to start and is not ready yet. this medication now, contact your VA pharmacy. SUSPENDED An active prescription that is Contact your VA not scheduled to be filled yet. pharmacy if you need You should receive it before this medication now. you run out. ==== /davon/ Marlyn Santiago OD [employer] Barista Signed: 03/02/2025 13:33 for TAWANA ALMONTE OPTOMETRY STUDENT /vincent Santiago OD [employer] Barista Cosigned: 03/02/2025 13:33 03/02/2025 ADDENDUM STATUS: COMPLETED I reviewed all findings with the medical aides teacher. I performed the slit lamp exam and dilated fundus exam. Cataracts are mild and pt not bothered by them. No diabetic retinopathy noted OU. Progress note reviewed and edited as needed. I established the plan of care and educated the patient about his conditions. Total time spent reviewing on chart review, reviewing and taking history, performing the examination, evaluating any ancillary testing and counseling patient as well as entering orders for medications or optical devices including medical decision making was 43 minutes 3 minutes for refraction (if applicable) = total of 40 minutes Pt deferred receiving a list of current medications /davon/ Marlyn Santiago OD [employer]ee [employer] Barista Signed: 03/02/2025 13:35 03/02/2025 ADDENDUM STATUS: COMPLETED please order: OD +3.00 ds 0.00 X Add:0.00 Pzm:0.00 Dir: Prz2:0.00 Dir2: OS +3.25 ds 0.00 X Add:0.00 Pzm:0.00 Dir: Prz2:0.00 Dir2: FITTING INFORMATION NPD:66 [place]:R: L: SEG HT:R: L: Tint:None Shade:None VA Billable Items FRAME: [id number] BLACK [id number] Right Lens: POLY SINGLE VISION 1.586 POLY Left Lens: POLY SINGLE VISION 1.586 POLY /davon/ Marlyn Santiago OD [employer]ee [employer] Barista Signed: 03/02/2025 13:36 Receipt Acknowledged By: 03/02/2025 13:50 /davon/ Rosario Torres Optometry Health Patent Attorney 03/02/2025 ADDENDUM STATUS: COMPLETED Optometry Health Patent Attorney ordered patient 1 pair(s) of sv eyeglasses on 03/02/25 as directed by provider. OPT HT entered consult(s) for order on behalf of provider. /davon/ Rosario Torres Optometry Health Patent Attorney Signed: 03/02/2025 13:52 MARLYN SANTIAGO [facility]
--- OUTSIDE RECORDS SUMMARY | 2025-03-16 07:30 | XMS_ITS | Encounter Summary ---
Author Name [facility] Organization [facility] [place] Address [address] [place] [id number] Care Team Providers Care Radio Talk Show Host Name Role Phone MARCHCHRIS Primary Care Provider [...] Name Patient's Relationship to Policy Multani [facility] (WNR) MEDICARE (M) [facility] (WNR) Nov 15, 2016 [id number] ADRIENNE PUENTES ON PATIENT [facility] (WNR) MEDICARE ADVANTAGE [place] PPOD VALUE DB DS Nov 15, 2017 [id number] [phone] ADRIENNE PUENTES ON PATIENT Selected Encounter This section includes the information on record at [place] for the Encounter. Date/Time Encounter Type Encounter Description Reason Provider Source March 16, 2025 11:30 AM OFFICE O/P EST LOW 20 MIN PODIATRY ICD-10-CM L60.3 Nail dystrophy TIFFANY CRUZ Anju Encounter Template Text not used by [place] Assessments - Encounter Diagnoses This section includes the primary and secondary diagnoses documented for the Encounter. 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 This section includes future appointments and future orders which are active, pending or scheduled. Future Appointments This section includes appointments that were scheduled to occur 6 months from the date of the Encounter, up to a maximum of 20 appointments. The data comes from all [facility]. Appointment Date/Time Appointment Type Appointme nt Facility Name April 03, 2025 09:00 AM AMBULATORY - NONE [place] [facility] [place] [facility] Apr 17, 2025 03:00 PM AMBULATORY - PSYCHIATRY [facility] May 01, 2025 08:00 AM AMBULATORY - MEDICINE [place] [facility] [place] [facility] Jun 04, 2025 09:00 AM AMBULATORY - MEDICINE [place] [facility] [place] [facility] [place] Jun 12, 2025 07:00 AM AMBULATORY - MEDICINE [place] [facility] [place] [facility] [place] [place] Jul 12, 2025 11:30 AM AMBULATORY - MEDICINE [place] [facility] [place] [facility] [place] Jul 20, 2025 09:30 AM AMBULATORY - MEDICINE [facility] Aug 03, 2025 08:45 AM AMBULATORY - MEDICINE [place] [facility] [place] [facility] [place] [place] Active, Pending, and Scheduled Orders This section includes a listing of several types of active, pending, and scheduled orders, including clinic medications orders, diagnostic test orders, procedure orders and consult orders; where the start date of the order is 45 days before the date of the Encounter or 45 days after the date of theEncounter. The data comes from all [facility]. Test Date/Time Test Type Test Details Facility Name April 10, 2025 03:53 PM Consult Order COMM[facility]ITY CARE-CARDIOLOGY Cons Claim Administrator's Choice [place] Apr 17, 2025 12:00 AM Laboratory - Chemi stry Order VALPROIC ACID BLOOD (LAV-PLASMA) [facility] Social History: Smoking Status (Most current) and Tobacco Use (All prior to encounter date) This section includes the most current, and the historical, smoking and tobacco- related health factors from the [place] facility where the Encounter took place. Current Smoking Status This section includes the most current smoking, or tobacco-related health factor, from the [place] facility where the Encounter took place. Date/Time Current Smoking Status Comment [place] [facility] Jun 25, 2022 11:00 AM VA-TOBACCO QUIT 15 YRS OR MORE [facility] Tobacco Use History This section includes a history of the smoking, or tobacco-related health factors, that were collected on or before the date of the Encounter. The data comes from the [place] facility where the Encounter took place. Date/Time Smoking Status/Tobacco Use Comment F acility Jun 25, 2022 11:00 AM VA-TOBACCO QUIT 15 YRS OR MORE [facility] May 09, 2021 11:30 AM VA-TOBACCO FORMER USER [facility] May 09, 2021 11:30 AM VA-TOBACCO QUIT 15 YRS OR MORE [place] May 23, 2020 10:54 AM VA-TOBACCO FORMER USER [place] May 23, 2020 10:54 AM VA-TOBACCO QUIT 15 YRS OR MORE [facility] Aug 04, 2018 01:44 PM VA-TOBACCO FORMER USER [facility] Aug 04, 2018 01:44 PM VA-TOBACCO QUIT 15 YRS OR MORE [place] Dec 21, 2017 11:00 AM QUIT TOBACCO USE > 7 YEARS AGO [place] Jan 13, 2017 11:37 AM QUIT TOBACCO USE > 7 YEARS AGO [place] Jan 21, 2016 01:05 PM QUIT TOBACCO USE > 7 YEARS AGO [place] Jun 30, 2005 02:26 PM HISTORY OF SMOKING [place] Apr 16, 2004 09:48 AM HISTORY OF SMOKING stopped tobacco 30 years ago [facility] Oct 15, 2003 12:05 PM QUIT TOBACCO USE > 7 YEARS AGO [place] Sep 12, 2003 01:27 PM QUIT TOBACCO USE > 7 YEARS AGO [place] Nov 21, 2002 02:50 PM HISTORY OF SMOKING stopped tobacco 28 years ago [place] Nov 21, 2002 02:50 PM QUIT TOBACCO USE > 7 YEARS AGO stopped tobacco 28 years ago [facility] Aug 18, 2001 10:18 AM HISTORY OF SMOKING QAUIT 25 YEARS AGO [facility] Encounter Notes: All associated encounter notes This section contains the clinical notes associated to the Encounter. Date/Time Encounter Note(s) Provider Source March 28, 2025 09:27 AM LETTERS: LOCAL TITLE: PATIENT LETTER (B) STANDARD TITLE: LETTERS DATE OF NOTE: MARCH 28, 2025@09:27 ENTRY DATE: MARCH 28, 2025@09:27:18 AUTHOR: NANCY MNIER COSIGNER: URGENCY: STATUS: COMPLETED [facility] [address] [place] [address] [phone] * ANALILIA PUENTES [address], [place] [address] Date: MARCH 28, 2025 Dear : This is a reminder letter that your SHOES are ready for pick at the [facility] [place] located at [address] [place] [address]. You may vegetable picker your shoes and or orthotics at your convenience any day, Wednesday through Wednesday between 8:30am and 3:30pm. You do not need an appointment. BUT WE DO REQUEST THAT YOU CALL BEFORE ARRIVING TO MAKE SURE THE PODIATRY HEALTH RETAIL FIELD SUPERVISOR IS AVAILABLE ON THAT DAY. Call [phone] for Nancy if you have any questions. We hope to see you soon, Sincerely, Office Staff for:GARRICK STINSON [facility] Provider Upcoming Appointments: 04/03/2025 09:00 [facility] DENTAL DMD 2 04/17/2025 15:00 [facility] CLINIC LEAD 1 07/12/2025 11:30 SPR PACT 1 BANJO REPAIR PERSON 07/20/2025 09:30 SPR PODIATRY 1 02/21/2026 08:30 [facility] DERMATOLOGY BANJO REPAIR PERSON 1 AM 03/08/2026 13:00 [facility] OPTOMETRY 3 NANCY MINER [place] March 16, 2025 08:06 AM PODIATRY NOTE: LOCAL TITLE: PODIATRY NOTE STANDARD TITLE: PODIATRY NOTE DATE OF NOTE: MARCH 16, 2025@08:06 ENTRY DATE: MARCH 16, 2025@08:06:48 AUTHOR: ROSS,TIFFANY F EXP COSIGNER: URGENCY: STATUS: COMPLETED NOTE: HAS RECEIVED BOTH COVID VACCINE DOSES + 3 BOOSTERS AT [facility] LAST SEEN FOR TREATMENT: 06/20/2024 S: Pt. is an 79 yo alert WDWN CAUC MALE who presents for continued podiatric evaluation & care for treatment of a presenting complaint of painful ingrown toenails that are thickened and incurvated -hallux bilateral. Patient has TYPE I DM & is at risk of injury with self or other nonprofessional care. Onset of symptoms has been several days due to this being a recurrent condition that has been exacerbating over the past few weeks. Duration of symptoms is daily with periods of exacerbation and remission. Description of symptoms is of an aching nature and is level 2-3/10 prior to treatment & 0/10 afterwards.Contributing factors are: shoes and increased activity. *NOTE: NO RECENT CHANGES IN MEDS-SEE RECONCILIATION PERFORMED THIS DATE BELOW- *DENIES TOBACCO PMH: Active problems - Computerized Problem List is the source for the following: *NOTE: REVIEWED ABOVE NOTING NO CHANGES SINCE PREVIOUS VISIT: TYPE I DM *NOTE: PLEASE SEE PROBLEM LIST TEMPLATE FOR COMPLETE LIST NEEDED. *NOTE: A1c = 6.8 (LAST TAKEN: 02/2025) FBS 153 AM RISK =2 HEIGHT:234 lb [106.4 kg] (04/05/2018 11:40) WEIGHT:69 in [175.3 cm] (04/05/2018 11:40) O: DERMATOLOGICAL: Exam reveals skin color & text to be WNL. Temp is diminished warm to cool proximal to distal. There is absence of hair noted. Nails are thickened yellow-brown discolored and displaying flakiness, crumbling, sub- ungual debris and rubor in the affected nail grooves. The affected nails are HALLUX bilat. There are superficial painful hyperkeratotic lesions noted at the following sites: MEDIAL 1ST MPJ & HALLUX BILAT. There are no rashes, ulcers, indurations or nodules noted. VASCULAR: Exam reveals DP & PT pulses to be +2 equal & symmetrical bilateral. CFT is <3 sec x 10. There are no superficial varices noted and there is no edema noted. MUSCULOSKELETAL: Exam reveals muscle strength and tone to be equal & symmetrical bilaterally & WNL for an individual of this age and present physical-medical condition. There is pain free ROM at all joints distal to and including the ankle. NOTE: COMPLAINS AGAIN THAT HAV RT IS WORSENING AND NOT INTERESTED IN SURGERY DAUGHTER HAD A BAD EXPERIENCE WITH HAV SURGERY NEUROLOGICAL: Exam reveals S/D, vibratory, light touch & proprioception sensations to be equal & symmetrical bilaterally & diminished for an individual of this age and present physical-medical status. Protective sensation utilizing a [place]-Bert lOg monofilament is 10/10 bilateral. Exams are reviewed and noted to be unchanged since previous visit and are non- contributory to the cc . 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 P: Treatment consists of debridement-reduction of all nails via manual & electric means with excision of the offending nail borders and thinning of the nail plates to the point of imminent bleeding. Additional treatment consists of surgical paring-debridement of all hyperkeratosis utilizing sharp dissection with a #10 sterile scalpel. All care rendered without complications & the patient is progressing well after podiatric care this date and will be scheduled for periodic podiatric care in an attempt to prevent future complications due to the underlying medical conditions. Treatment by a non-professional could be extremely hazardous to the patient's well-being due to the underlying medical conditions. RTC 24 WEEKS:07/20 @ 9:30AM) IS USING TERBINAFINE 1% TOPICAL FOR NAILS AND WILL CONTINUE I DISCUSSED THE FINDINGS & PLAN WITH PATIENT (UNCHANGED SINCE PREVIOUS VISIT) & PATIENT AGREES AND UNDERSTANDS PLAN-NOT IN NEED OF A MIRROR *REVIEWED HOME FOOT CARE FEET ARE IN EXCELLENT CONDITION AND I PROVIDED HIM WITH WRITTEN RECOMMENDATIONS FOR FOOT CARE TO BE REVIEWED AT HOME (FOOT CARE TIPS). OF 54 YEARS IN OCTOBER Medication Reconciliation: PERFORMED TODAY - SEE BELOW. Outpatient: Has the patient been taking medications as documented in the EMLR? YES: The patient has been taking medications as documented in the EMLR. Essential Medication List for Review used to complete this medication reconciliation. INCLUDED IN THIS LIST: Alphabetical list of active outpatient prescriptions dispensed from this [facility] (local) and dispensed from another [place] or DoD facility (remote) as well as [...] [facility] [place] [facility] No Known Allergies [facility] NO KNOWN ALLERGIES Med [facility] Cristian (Tool #1) INCLUDED IN THIS LIST: Alphabetical list of active outpatient prescriptions dispensed from this [place] (local) and dispensed from another VA or DoD facility (remote) as well as inpatient orders (local pending and active), local clinic medications, locally documented non-VA medications, and local prescriptions that have or been discontinued in the past 90 days. Non-VA Meds Last Documented On: Dec 23, 2021 NOTE The display of VA prescriptions dispensed from another VA or DoD facility (remote) is limited to active outpatient prescription entries matched to National Drug File at the originating site and may not include some items such as investigational drugs, compounds, etc. NOT INCLUDED IN THIS LIST: Medications self-entered by the patient into personal health records (i.e. [id number]) are NOT included in this list. Non-VA medications documented outside this [place], remote inpatient orders (regardless of status) and remote clinic medications are NOT included in this list. The patient and provider must always discuss medications the patient is taking, regardless of where the medication was dispensed or obtained. Non-VA ASPIRIN 81MG EC TAB TAKE ONE TABLET BY MOUTH ONCE DAILY OUTPT CARBOXYMETHYLCELLULOSE NA 0.5% OPH SOLN (Status = Discontinued) INSTILL 1 DROP INTO EACH EYE FOUR TIMES DAILY NEEDED FOR DRY EYE Rx# [id number] Last Released: 09/02/24 Qty/Days Supply: Rx Expiration Date: 06/20/25 Refills Remainin Indication: FOR DRY EYE OUTPT CARBOXYMETHYLCELLULOSE NA 0.5% OPH SOLN (Status = Active) INSTILL 1 DROP INTO EACH EYE FOUR TIMES DAILY NEEDED FOR DRY EYE Rx# [id number] Last Released: 03/05/25 Qty/Days Supply: Rx Expiration Date: 03/03/26 Refills Remainin Indication: FOR DRY EYE Non-VA CINNAMON CAP/TAB TAKE BY MOUTH Non-VA CYANOCOBALAMIN TAB TAKE BY MOUTH Medication prescribed by Non-VA provider. OUTPT DESONIDE 0.05% CREAM (Status = Active) APPLY A SMALL AMOUNT TOPICALLY TWICE DAILY NEEDED FOR FACIAL RASH. MAXIMUM OF 14 DAYS A MONTH Rx# [id number] Last Released: 01/04/25 Qty/Days Supply: Rx Expiration Date: 12/29/25 Refills Remainin Indication: FOR SKIN INFLAMMATION OUTPT DICLOFENAC NA 1% TOP GEL (Status = Active) APPLY 2 GRAMS TOPICALLY FOUR TIMES DAILY NEEDED FOR OSTEOARTHRITIS - USE DOSING CARD PROVIDED IN BOX Rx# [id number] Last Released: 02/14/25 Qty/Days Supply: 12 Rx Expiration Date: 12/07/25 Refills Remainin OUTPT DIVALPROEX 500MG 24HR (ER) SA TAB (Status = Discontinued) TAKE ONE TABLET BY MOUTH TWICE DAILY FOR BIPOLAR DISORDER Rx# [id number] Last Released: 12/01/24 Qty/Days Supply: 60 Rx Expiration Date: 06/21/25 Refills Remainin Indication: FOR BIPOLAR DISORDER OUTPT DIVALPROEX 500MG 24HR (ER) SA TAB (Status = Active) TAKE ONE TABLET BY MOUTH TWICE DAILY FOR BIPOLAR DISORDER Rx# [id number] Last Released: 02/01/25 Qty/Days Supply: 60 Rx Expiration Date: 01/30/26 Refills Remainin Indication: FOR BIPOLAR DISORDER OUTPT INSULIN,ASPART,HUMAN 100 UNIT/ML INJ (Status = Active/Suspended) INJECT 10 UNITS SUBCUTANEOUSLY EVERY MORNING AND INJECT 10 UNITS ONCE DAILY AT LUNCH AND INJECT 16 UNITS EVERY EVENING BEFORE SUPPER Rx# [id number] Last Released: 12/11/24 Qty/Days Supply: Rx Expiration Date: 12/07/25 Refills Remainin OUTPT INSULIN,GLARGINE,HUMAN 100 UNIT/ML INJ (Status = Active) INJECT 30 UNITS SUBCUTANEOUSLY ONCE DAILY Rx# [id number] Last Released: 01/17/25 Qty/Days Supply: Rx Expiration Date: 04/11/25 Refills Remainin OUTPT INSULIN,GLARGINE-YFGN 100UNIT/ML INJ (Status = Discontinued) INJECT 30 UNITS SUBCUTANEOUSLY ONCE DAILY Rx# [id number] Last Released: 09/14/24 Qty/Days Supply: Rx Expiration Date: 04/20/25 Refills Remainin OUTPT KETOCONAZOLE 2% CREAM (Status = Active) APPLY A THIN LAYER TOPICALLY TWICE DAILY FOR SEBORRHEIC DERMATITIS FOR FOUR WEEKS, THEN NEEDED Rx# [id number] Last Released: 01/30/25 Qty/Days Supply: 12030 Rx Expiration Date: 01/26/26 Refills Remainin Indication: FOR SEBORRHEIC DERMATITIS OUTPT KETOCONAZOLE 2% SHAMPOO (Status = Active) SHAMPOO SMALL AMOUNT TOPICALLY TWICE A WEEK NEEDED SCALP RASH APPLY FOR 8 WEEKS, THEN NEEDED Rx# [id number] Last Released: 02/26/25 Qty/Days Supply: 12030 Rx Expiration Date: 02/23/26 Refills Remainin Indication: SCALP RASH OUTPT LISINOPRIL 20MG TAB (Status = Active) TAKE ONE TABLET BY MOUTH ONCE DAILY TO CONTROL BLOOD PRESSURE Rx# [id number] Last Released: 02/13/25 Qty/Days Supply: 90/90 Rx Expiration Date: 12/07/25 Refills Remainin Non-VA MAGNESIUM OXIDE TAB TAKE BY MOUTH Medication prescribed by Non-VA provider. Non-VA MULTIVITAMIN/MINERALS CAP/TAB TAKE ONE TABLET BY MOUTH ONCE DAILY Medication prescribed by Non-VA provider. OUTPT OMEPRAZOLE 20MG EC CAP (Status = Active) TAKE TWO CAPSULES BY MOUTH EVERY MORNING 30 MINUTES BEFORE BREAKFAST Rx# [id number] Last Released: 02/28/25 Qty/Days Supply: 60/30 Rx Expiration Date: 11/22/25 Refills Remainin Non-VA TURMERIC CAP/TAB TAKE BY MOUTH Medication prescribed by Non-VA provider. Non-VA VITAMIN D3 (CHOLECALCIFEROL) TAB TAKE BY MOUTH Medication prescribed by Non-VA provider. SUPPLIES OUTPT ACCU-CHEK GUIDE (GLUCOSE) TEST STRIP (Status = Active) USE 1 STRIP TO TEST BLOOD SUGARS THREE TIMES A DAY Rx# [id number] Last Released: 07/20/24 Qty/Days Supply: 300/90 Rx Expiration Date: 07/12/25 Refills Remainin OUTPT BRIEF,PROTECTION PLUS LARGE #[id number] (Status = Active) USE ONE BRIEF DIRECTED SIX TIMES A DAY Rx# [id number] Last Released: 01/27/25 Qty/Days Supply: 21630 Rx Expiration Date: 04/20/25 Refills Remainin OUTPT BRIEF,PROTECTIVE SUPER ABS LG ATTENDS (Status = Active) USE 1 BRIEF DIRECTED SIX TIMES A DAY URINARY AND BOWEL INCONTINENCE Rx# [id number] Last Released: 01/09/25 Qty/Days Supply: 216 Rx Expiration Date: 01/08/26 Refills Remainin Indication: URINARY AND BOWEL INCONTINENCE OUTPT INCONT LINER DEPEND GUARDS (Status = Active) USE 1 PAD TOPICALLY THREE TIMES DAILY NEEDED INCONTINENCE Rx# [id number] Last Released: 04/21/24 Qty/Days Supply: 312/90 Rx Expiration Date: 04/20/25 Refills Remainin Indication: INCONTINENCE OUTPT INSULIN SYRINGE 1ML 31G 8MM (Status = ) USE 1 SYRINGE FOUR TIMES A DAY FOR INSULIN INJECTIONS Rx# [id number] Last Released: 12/14/24 Qty/Days Supply: 300/75 Rx Expiration Date: 02/27/25 Refills Remainin OUTPT LANCET,SOFTCLIX (Status = Active) USE 1 LANCET DIRECTED THREE TIMES A DAY TO TEST BLOOD SUGAR Rx# [id number] Last Released: 11/27/24 Qty/Days Supply: 300/90 Rx Expiration Date: 11/28/25 Refills Remainin Indication: DIABETES OUTPT LANCET,SOFTCLIX DEVICE (Status = ) USE DEVICE DIRECTED BY PROVIDER Rx# [id number] Last Released: 11/27/24 Qty/Days Supply: 1 Rx Expiration Date: 02/25/25 Refills Remainin Indication: DIABETES OUTPT NEEDLE,PEN 31G,5MM (Status = Active) USE 1 NEEDLE SUBCUTANEOUSLY FOUR TIMES A DAY FOR USE WITH PEN DEVICE Rx# [id number] Last Released: 09/22/24 Qty/Days Supply: 400/90 Rx Expiration Date: 09/11/25 Refills Remainin /es/ TIFFANY CRUZ DPM FISH HATCHERY SUPERINTENDENT Signed: 03/16/2025 11:59 TIFFANY CRUZFIELD
--- OUTSIDE RECORDS SUMMARY | 2025-04-17 11:00 | XMS_ITS | Encounter Summary ---
Author Name [facility] [place] [facility] [place] [facility] [place] [facility] [place] Address [address] [place] [id number] Care Team Providers Care Superintendent Quarry Name Role Phone CHRIS SENA Primary Care [...] Name Patient's Relationship to Policy Multani [facility] (WNR) MEDICARE ([place]) [facility] (WNR) Nov 15, 2016 [id number] ADRIENNE PUENTES ON PATIENT [facility] (WNR) MEDICARE ADVANTAGE [place] PPOD VALUE DB DS Nov 15, 2017 [id number] ADRIENNE PUENTES ON PATIENT Selected Encounter This section includes the information on record at [place] for the Encounter. Date/Time Encounter Type Encounter Description Reason Provider Source Apr 17, 2025 03:00 PM OFFICE O/P EST LOW 20 MIN [facility] - IND ICD-10-CM F31.70 Bipolar disord, currently in remis, most recent episode unsp JOSÉ LUIS HERRERA Encounter Template Text not used by [facility] Assessments - Encounter Diagnoses This section includes the primary and secondary diagnoses documented for the Encounter. Date/Time Primary/Secondary Diagnosis Diagnosis Name Provider Source Apr 17, 2025 03:57 PM PRIMARY Bipolar disord, currently in remis, most recent episode JOSÉ LUIS Epps [place] Plan of Treatment: Future Appointments (+ 6 months) and Future Tests (+/- 45 days) The Plan of Treatment section includes future care activities for the patient from all [place] [facility] This section includes future appointments and future orders which are active, pending or scheduled. Future Appointments This section includes appointments that were scheduled to occur 6 months from the date of the Encounter, up to a maximum of 20 appointments. The data comes from all [facility]. Appointment Date/Time Appointment Type Appointme nt Facility Name May 01, 2025 08:00 AM AMBULATORY - MEDICINE [facility] Jun 04, 2025 09:00 AM [facility]UL[facility] - MEDICINE [facility] Jun 12, 2025 07:00 AM AMBULATORY - MEDICINE [facility] Jul 12, 2025 11:30 AM AMBULATORY - MEDICINE [facility] [place] [facility] Jul 20, 2025 09:30 AM AMBULATORY - MEDICINE [facility] Aug 03, 2025 08:45 AM AMBULATORY - MEDICINE [facility] [place] [facility] Sep 18, 2025 02:00 PM AMBULATORY - PSYCHIATRY [facility] Active, Pending, and Scheduled Orders This section includes a listing of several types of active, pending, and scheduled orders, including clinic medications orders, diagnostic test orders, procedure orders and consult orders; where the start date of the order is 45 days before the date of the Encounter or 45 days after the date of theEncounter. The data comes from all [facility]. Test Date/Time Test Type Test Details Facility Name April 10, 2025 03:53 PM Consult Order [facility]-CARDIOLOGY Cons Sheet [employer]ric[employer] [place] Apr 17, 2025 12:00 AM Laboratory - Chemi stry Order VALPROIC ACID BLOOD (LAV-PLASMA) [facility] Social History: Smoking Status (Most current) and Tobacco Use (All prior to encounter date) This section includes the most current, and the historical, smoking and tobacco- related health factors from the [place] facility where the Encounter took place. Current Smoking Status This section includes the most current smoking, or tobacco-related health factor, from the [place] facility where the Encounter took place. Date/Time Current Smoking Status Comment Al[place] hammer Jun 25, 2022 11:00 AM VA-TOBACCO FORMER USER [place] Tobacco Use History This section includes a history of the smoking, or tobacco-related health factors, that were collected on or before the date of the Encounter. The data comes from the [place] facility where the Encounter took place. Date/Time Smoking Status/Tobacco Use Comment [place] Jun 25, 2022 11:00 AM VA-TOBACCO QUIT 15 YRS OR MORE [place] May 09, 2021 11:30 AM VA-TOBACCO FORMER USER [place] May 09, 2021 11:30 AM VA-TOBACCO QUIT 15 YRS OR MORE [place] May 23, 2020 10:54 AM VA-TOBACCO FORMER USER [place] May 23, 2020 10:54 AM VA-TOBACCO QUIT 15 YRS OR MORE [place] Aug 04, 2018 01:44 PM VA-TOBACCO FORMER USER [place] Aug 04, 2018 01:44 PM VA-TOBACCO QUIT 15 YRS OR MORE [place] Dec 21, 2017 11:00 AM QUIT TOBACCO USE > 7 YEARS AGO [place] Jan 13, 2017 11:37 AM QUIT TOBACCO USE > 7 YEARS AGO [place] Jan 21, 2016 01:05 PM QUIT TOBACCO USE > 7 YEARS AGO [place] Jun 30, 2005 02:26 PM HISTORY OF SMOKING [place] Apr 16, 2004 09:48 AM HISTORY OF SMOKING stopped tobacco 30 years ago [place] Oct 15, 2003 12:05 PM QUIT TOBACCO USE > 7 YEARS AGO [place] Sep 12, 2003 01:27 PM QUIT TOBACCO USE > 7 YEARS AGO [place] Nov 21, 2002 02:50 PM HISTORY OF SMOKING stopped tobacco 28 years ago [place] Nov 21, 2002 02:50 PM QUIT TOBACCO USE > 7 YEARS AGO stopped tobacco 28 years ago [place] Aug 18, 2001 10:18 AM HISTORY OF SMOKING QAUIT 25 YEARS AGO [place] Encounter Notes: All associated encounter notes This section contains the clinical notes associated to the Encounter. Date/Time Encounter Note(s) Provider Source Apr 17, 2025 03:10 PM CLINICAL NURSE SPE CIALIST NOTE: LOCAL TITLE: CLINICAL NURSE SPECIALIST/MENTAL HEALTH STANDARD TITLE: CLINICAL NURSE SPECIALIST NOTE DATE OF NOTE: APR 17, 2025@15:10 ENTRY DATE: APR 17, 2025@15:11:09 AUTHOR: JOSÉ LUIS HERRERA EXP COSIGNER: URGENCY: STATUS: COMPLETED Active problems - Computerized Problem List is the source for the followin. Urinary incontinence 2. Screening for Malignant Neoplasms of colon 3. Diabetes mellitus (SNOMED CT [id number]) 4. Osteoarthrosis, unspecified whether generalized or localized, involving shoo 5. Animal Bite 6. Iron Deficiency Anemia 7. Obesity * 8. Cardiovascular Stress Test with Continuous Electrocardiographic Monitoring, 9. Urinary Incontinence 10. Fissure in Ano 11. Hyperlipidemia 12. PROSTATE, MALIGN NEOPLASM 13. Psoriasis, skin or nails * 14. HTN 15. Bipolar disorder, mixed 16. S/P SVT 17. Generalized Anxiety Disorder * 18. ESOPHAGEAL REFLUX Patient was seen today for treatment of the following diagnosis/diagnoses: In person visit 22 min Bi yearly visit Pertinent symptoms: Bipolar disorder type 1- in full remission He reports that his suddenly in October and slowly recovering from his loss - normal grieving. He has the support of his two children and grandchildren . He reports that mood is stable- He states that he is taking Depakote with good effect on mood stability, sometimes he will take two tabs if needed,( 500-1000mg) The following VA and Non-VA medications were reconciled with the patient: Active Outpatient Medications (including Supplies): ACCU-CHEK OSCAR PLUS(GLUCOSE) TEST STRIP USE 1 STRIP TO ACTIVE TEST BLOOD SUGARS TWICE DAILY ATORVASTATIN CALCIUM 80MG TAB TAKE ONE-HALF TABLET BY ACTIVE MOUTH DAILY FOR CHOLESTEROL BETAMETHASONE DIPROPIONATE 0.05% CREAM APPLY DIRECTED ACTIVE TOPICALLY TWICE DAILY NEEDED FOR PSORIASIS BRIEF,PROTECTION PLUS LARGE #[id number] USE ONE BRIEF ACTIVE DIRECTED SIX TIMES A DAY CETIRIZINE HCL 10MG TAB TAKE ONE TABLET BY MOUTH DAILY FOR ACTIVE ALLERGIES DIVALPROEX 500MG 24HR (ER) SA TAB TAKE ONE TABLET BY MOUTH ACTIVE EVERY MORNING --FOR MOOD STABILITY DOCUSATE NA 100MG CAP TAKE ONE CAPSULE BY MOUTH TWICE ACTIVE DAILY NEEDED TO SOFTEN STOOL FERROUS SULFATE 325MG TAB TAKE ONE TABLET BY MOUTH TWICE HOLD DAILY WITH A GLASS OF ORANGE JUICE --TO SUPPLEMENT IRON INSULIN,ASPART,HUMAN 100 UNIT/ML INJ INJECT 10 UNITS ACTIVE SUBCUTANEOUSLY EVERY MORNING AND INJECT 10 UNITS ONCE DAILY AT LUNCH AND INJECT 13 UNITS EVERY EVENING BEFORE SUPPER INSULIN,GLARGINE,HUMAN 100 UNIT/ML INJ INJECT 25 UNITS ACTIVE SUBCUTANEOUSLY ONCE DAILY LISINOPRIL 20MG TAB TAKE ONE TABLET BY MOUTH DAILY TO ACTIVE CONTROL BLOOD PRESSURE POLYETHYLENE GLYCOL 3350 ORAL PWDR TAKE 17 GRAMS (1 ACTIVE CAPFUL) BY MOUTH ONCE DAILY [MIX WITH 4 TO 8OZ. OF BEVERAGE] FOR BOWEL REGULARITY RANITIDINE HCL 150MG TAB TAKE ONE TABLET BY MOUTH ONCE ACTIVE DAILY NEEDED SENNOSIDES 8.6MG TAB TAKE ONE TABLET BY MOUTH TWICE DAILY ACTIVE NEEDED FOR CONSTIPATION TERBINAFINE HCL 1% CREAM APPLY A THIN LAYER TOPICALLY ACTIVE TWICE DAILY Non-VA ASPIRIN 81MG EC TAB 81MG BY MOUTH ONCE DAILY ACTIVE Non-VA CYANOCOBALAMIN TAB BY MOUTH ACTIVE Non-VA MULTIVITAMIN/MINERALS CAP/TAB 1 TABLET BY MOUTH ACTIVE ONCE DAILY Non-VA TURMERIC CAP/TAB BY MOUTH ACTIVE Non-VA VITAMIN D3 (CHOLECALCIFEROL) TAB BY MOUTH ACTIVE 14 Total Medications MENTAL STATUS Well groomed , friendly Speech: increased rate, volume (baseline), and tone; Headrick answered questions appropriately understandable, and relevant to the topic. Mood: ok good - stable- No S/I Cognition: intact Memory grossly intact SI/HI: denied suicidal or homicidal ideation or intent Abnormal perceptions: no auditory or visual hallucinations. Thought process: linear Thought content: no delusions Insight/Judgment: Both good at present time. Assessment: Remains stable in mood-no thought disorder. Family is stable . Has many interests- He has a daughter and grandchildren in [place] but they have moved back home to support him. Discussed grieving process. He states that he does what makes him feel better. He carried ashes with him Labs/Radiology/Tests/Consultation __ none ordered __ obtained: labs reviewed Valp ordered Plan: Continue Depakote 500mg SA at hs , may take extra tab if needed. Valp level ordered .No longer takes antipsychotic - no delusions /hallucinations. Rt in 4 mo. The rationale for the psychiatric medications and the alternatives to treatment were discussed with the patient. The side effect profile of the psychiatric medications was reviewed with the patient. Patient demonstrated reasonable understanding of the medication side effects and the above issues. The benefits of psychiatric medications outweigh risks for this patient. /davon/ José Luis Herrera APRN, STAFF CLINICAL NURSE SPECIALIST Signed: 04/17/2025 15:57 JOSÉ LUIS HERRERA [place]
--- OUTSIDE RECORDS SUMMARY | 2025-06-26 05:34 | XMS_ITS ---
Author Name [facility] [place] [facility] [place] Address [address] [place] [address] Care Team Providers Care Dredge Engineer Name Role Phone CHRIS SENA Primary Care [...] Name Patient's Relationship to Policy Multani ERIC [facility] (WNR) MEDICARE (M) [facility] (WNR) Nov 15, 2016 [id number] ADRIENNE PUENTES ON PATIENT [facility] (WNR) MEDICARE ADVANTAGE [place] PPOD VALUE DB DS Nov 15, 2017 [id number] ADRIENNE PUENTES ON PATIENT Selected Encounter This section includes the information on record at [place] for the Encounter. Date/Time Encounter Type Encounter Description Reason Pro vider Source Jun 26, 2025 09:34 AM Outpatient Encounter ADMIN PAT ACTIVTIES (MASNONCT) IHE Encounter Template Text not used by [place] Plan of Treatment: Future Appointments (+ 6 [...] 20 appointments. The data comes from all [facility] facilities. Appointment Date/Time Appointment Type Appointme nt Facility Name Jul 12, 2025 11:30 AM AMBULATORY - MEDICINE [facility] N[facility] Jul 20, 2025 09:30 AM AMBULATORY - MEDICINE [facility] Aug 03, 2025 08:45 AM AMBULATORY - MEDICINE [facility] Sep 18, 2025 02:00 PM AMBULATORY - PSYCHIATRY [facility] Active, Pending, and Scheduled Orders This section includes a listing of several types of active, pending, and scheduled orders, including clinic medications orders, diagnostic test orders, procedure orders and consult orders; where the start date of the order is 45 days before the date of the Encounter or 45 days after the date of theEncounter. The data comes from all [facility]. Test Date/Time Test Type Test Details Facility Name Jul 12, 2025 11:52 AM Laboratory - Chemistry Order LIVER FUNCTION BLOOD (SST-SERUM) [facility] Jul 12, 2025 11:52 AM Laboratory - Chemistry Order BASIC METABOLIC PANEL (non-fasting) BLOOD (SST-SERUM) [facility] Jul 12, 2025 11:52 AM Laboratory - Chemistry Order LIPID PANEL, NON FASTING BLOOD (SST-SERUM) [facility] Jul 12, 2025 11:52 AM Laboratory - Chemistry Order CBC BLOOD (LAV-BLOOD) [facility] Jul 12, 2025 11:52 AM Laboratory - Chemistry Order VITAMIN D (25-OH) BLOOD (SST-SERUM) SP ONCE [facility] Jul 12, 2025 11:52 AM Laboratory - Chemistry Order VITAMIN B12 BLOOD (SST-SERUM) [facility] Jul 12, 2025 11:52 AM Laboratory - Chemistry Order HEMOGLOBIN A1C PANEL BLOOD (LAV-BLOOD) [facility] Jul 12, 2025 11:52 AM Laboratory - Chemistry Order TSH BLOOD (SST-SERUM) [facility] Jul 12, 2025 11:52 AM Laboratory - Chemistry Order MICROALBUMIN CREATININE RATIO PANEL URINE (RANDOM) SP [facility] Jul 12, 2025 11:52 AM Laboratory - Chemistry Order VALPROIC ACID BLOOD (LAV-PLASMA) [facility] Social History: Smoking Status (Most current) and Tobacco Use (All prior to encounter date) This section includes the most current, and the historical, smoking and tobacco- related health factors from the [place] facility where the Encounter took place. Current Smoking Status This section includes the most current smoking, or tobacco-related health factor, from the [place] facility where the Encounter took place. Date/Time Current Smoking Status Comment Facil ity Feb 13, 2025 01:04 PM [place]-TOBACCO NEVER U SED OTHER TYPE [facility] Tobacco Use History This section includes a history of the smoking, or tobacco-related health factors, that were collected on or before the date of the Encounter. The data comes from the [place] facility where the Encounter took place. Date/Time Smoking Status/Tobacco Use Comment F acility Feb 13, 2025 01:04 PM [place]-TOBACCO NEVER U SED OTHER TYPE [facility] Aug 13, 2023 11:00 AM VA-TOBACCO FORMER USER [facility] Aug 13, 2023 11:00 AM [place]-TOBACCO QUIT 15 YRS OR MORE [facility] Encounter Notes: All associated encounter notes This section contains the clinical notes associated to the Encounter. Date/Time Encounter Note(s) Provider Source Jun 26, 2025 09:34 AM MEDICATION MGT NOT E: LOCAL TITLE: MEDICATION RENEWAL STANDARD TITLE: MEDICATION MGT NOTE DATE OF NOTE: JUN 26, 2025@09:34 ENTRY DATE: JUN 26, 2025@09:34:15 AUTHOR: PARDEEP YOUNGER EXP COSIGNER: URGENCY: STATUS: COMPLETED MEDICATION RENEWAL Has ADDENDA Hello, calls informing pharmacy that briefs listed below does not fit. BRIEF,PROTECTIVE SUPER ABS LG ATTENDS USE 1 BRIEF ACTIVE DIRECTED SIX TIMES A DAY Please send new order for the ones listed below if appropriate. [id number] BRIEF,PROTECTION PLUS LARGE #[id number] Thank you and Have a great day. /vincent YOUNGER pharmacy salesperson Signed: 06/26/2025 09:38 Receipt Acknowledged By: 06/26/2025 12:49 /davon/ QING MARINELLI REGISTERED NURSE 06/28/2025 12:39 /davon/ Chris Sena MD INTERNAL MEDICINE and RHEUMATOLOGY 06/26/2025 ADDENDUM STATUS: COMPLETED Requested briefs ordered,to be mailed to 's home address. /davon/ QING MARINELLI REGISTERED NURSE Signed: 06/26/2025 12:50 PARDEEP YOUNGER [place] CNTRL [facility]
--- OUTSIDE RECORDS SUMMARY | 2025-07-11 05:50 | XMS_ITS | Encounter Summary ---
Author Name [facility] [place] [facility] [place] Address [address] [place] [address] Care Team Providers Care Operator Vacuum Name Role Phone MARCHCHRIS Primary Care Provider [...] Name Patient's Relationship to Policy Multani ERIC [facility] (WNR) MEDICARE (M) [facility] (WNR) Nov 15, 2016 [id number] ADRIENNE PUENTES ON PATIENT [facility] (WNR) MEDICARE ADVANTAGE [place] PPOD VALUE DB DS Nov 15, 2017 [id number] [phone] ADRIENNE PUENTES ON PATIENT Selected Encounter This section includes the information on record at [place] for the Encounter. Date/Time Encounter Type Encounter Description Reason Pro vider Source Jul 11, 2025 09:50 AM Outpatient Encounter COMMUNITY CARE CONSULT IHE Encounter [...] 20 appointments. The data comes from all [place] treatment facilities. Appointment Date/Time Appointment Type Appointme nt Facility Name Jul 12, 2025 11:30 AM [facility] Jul 20, 2025 09:30 AM [facility] - MEDICINE [facility] Aug 03, 2025 08:45 AM AMBULATORY - MEDICINE [facility] Sep 18, 2025 02:00 PM AMBULATORY - PSYCHIATRY [facility] Active, Pending, and Scheduled Orders This section includes a listing of several types of active, pending, and scheduled orders, including clinic medications orders, diagnostic test orders, procedure orders and consult orders; where the start date of the order is 45 days before the date of the Encounter or 45 days after the date of theEncounter. The data comes from all [facility]. Test Date/Time Test Type Test Details Facility Name Jul 12, 2025 11:52 AM Laboratory - Chemistry Order BASIC METABOLIC PANEL (non-fasting) BLOOD (SST-SERUM) [facility] Jul 12, 2025 11:52 AM Laboratory - Chemistry Order LIVER FUNCTION BLOOD (SST-SERUM) [facility] Jul 12, 2025 11:52 AM Laboratory - Chemistry Order LIPID PANEL, NON FASTING BLOOD (SST-SERUM) [facility] Jul 12, 2025 11:52 AM Laboratory - Chemistry Order CBC BLOOD (LAV-BLOOD) [facility] Jul 12, 2025 11:52 AM Laboratory - Chemistry Order VITAMIN D (25-OH) BLOOD (SST-SERUM) SP ONCE [facility] Jul 12, 2025 11:52 AM Laboratory - Chemistry Order VITAMIN B12 BLOOD (SST-SERUM) [facility] Jul 12, 2025 11:52 AM Laboratory - Chemistry Order HEMOGLOBIN A1C PANEL BLOOD (LAV-BLOOD) [facility] Jul 12, 2025 11:52 AM Laboratory - Chemistry Order TSH BLOOD (SST-SERUM) [facility] Jul 12, 2025 11:52 AM Laboratory - Chemistry Order VALPROIC ACID BLOOD (LAV-PLASMA) [facility] SP [facility] Jul 12, 2025 11:52 AM Laboratory - Chemistry Order MICROALBUMIN CREATININE RATIO PANEL URINE (RANDOM) SP [facility] Social History: Smoking Status (Most current) [...] Facil ity Feb 13, 2025 01:04 PM [place]-TOBACCO NEVER U SED CIGARETTES [facility] Tobacco Use History This section includes a history of the smoking, or tobacco-related health factors, that were collected on or before the date of the Encounter. The data comes from the [place] facility where the Encounter took place. Date/Time Smoking Status/Tobacco Use Comment F acility Feb 13, 2025 01:04 PM [place]-TOBACCO NEVER U SED OTHER TYPE [facility] Aug 13, 2023 11:00 AM VA-TOBACCO FORMER USER [facility] Aug 13, 2023 11:00 AM [place]-TOBACCO QUIT 15 YRS OR MORE [facility] Encounter Notes: All associated encounter notes This section contains the clinical notes associated to the Encounter. Date/Time Encounter Note(s) Provider Source Jul 11, 2025 09:50 AM NONVA NOTE: LOCAL TITLE: COMMUNITY CARE-CARE COORDINATION PLAN NOTE STANDARD TITLE: NONVA NOTE DATE OF NOTE: JUL 11, 2025@09:50 ENTRY DATE: JUL 11, 2025@09:50:15 AUTHOR: TRACY LIZAMA EXP COSIGNER: URGENCY: STATUS: COMPLETED Community Care Consult: EGD Consult No: [id number] HS Referral #: [id number] Community Provider or Hospital Information Community Provider Information Provider Name: [facility] Provider Address: [facility] City: [place] State: [place] Provider Provider Fax: Provider Email: Chief Complaint: Assist with scheduling and needs as they arise related to this consult was admitted Date of Admission: May Admission Diagnosis: S/P EGD and Colonoscopy Hoecpxaq-Amgcjxxtx-Hwjvh ing MD: Dr. Elva Singleton MD Type of Bed: Observation Level of Care Coordination Moderate Care Coordination was determined from: Chart Review Facility Community Care Office Contact Care Coordination Point of Contact: Tracy Lizama RN Phone Number: [phone] Services: Basic Care Coordination Services Monitoring and coordination of Rehab/PT Services Direct communication to referring provider Care management, if appropriate Plan: Assist with scheduling and needs as they arise related to this consult /es/ TRACY LIZAMA Community Care RN Signed: 07/11/2025 10:00 TRACY LIZAMA [facility]
--- OUTSIDE RECORDS SUMMARY | 2025-07-11 23:59 | XMS_ITS | Continuity of Care Document ---
Author Organization [facility] Address [address] [place] [address]- Care Team Providers Care Entry Level Financial Analyst Name Role Phone Lindsay VILA, Balwinder Primary Care Physician Encounter [facility] Date(s): 06/11/25 - 07/11/25 [facility] [address] [place] [id number]- Encounter Type: Triage Allergies, Adverse Reactions, Alerts No Known Allergies Medications Carafate 1 gm oral tablet 1 Gm, By Mouth, 4 times a day, # 84 tablet, Refills 0, Tot. Refills 0, Maintenance, 12/09/24 10:23:00 AM EST, Route to Pharmacy Electronically, [facility] #[id number], Partial fill upon patient request if the prescription is for a schedule II opioid drug., 175, cm, 12/09/24 6:53:00 EST, Height,84, kg, 12/08/24 7:33:00 EST, Dry Weight Start Date: 12/09/24 Stop Date: 12/30/24 Status: Ordered Medication Dispense Status: Completed Quantity: 84.0 Unit: tablet Total Allowed Fills: 1 Fills Dispensed: 0 D3 = 25 mcg, By Mouth, Daily, 0 Refills, Maintenance, 04/07/21 10:05:00 PM EDT Start Date: 04/07/21 Status: Ordered Medication Dispense Status: Completed Total Allowed Fills: 1 Fills Dispensed: 0 Divalproex Sodium = 500 mg, By Mouth, Daily in AM, 0 Refills, Maintenance, 10/01/19 12:32:59 AM EST Start Date: 10/01/19 Status: Ordered Medication Dispense Status: Completed Total Allowed Fills: 1 Fills Dispensed: 0 Lantus 100 u/ml subcutaneous solution = 30 units, Subcutaneous Injection, Daily at bedtime, 0 Refills, Maintenance, 09/06/17 12:55:25 AM EDT, Solution Start Date: 09/06/17 Status: Ordered Medication Dispense Status: Completed Total Allowed Fills: 1 Fills Dispensed: 0 lisinopril 20 mg oral tablet 20 mg, 1, tablet, By Mouth, Daily, Refills 0, Maintenance, 01/29/20 1:03:00 PM EDT Start Date: 01/29/20 Status: Ordered Medication Dispense Status: Completed Total Allowed Fills: 1 Fills Dispensed: 0 pantoprazole 40 mg oral delayed release tablet See Instructions, take 1 tablet By Mouth 2 times a day for 8 weeks then start taking daily indefinitely., # 150 tablet, 0 Refills, Maintenance, 06/13/25 11:38:00 AM EDT, CR Tablet, 175.3, cm, 06/13/2510:26:00 EDT, Height, 82, kg, 03/07/25 7:57:00 EDT, Dry Weight Start Date: 06/13/25 Status: Ordered Medication Dispense Status: Completed Quantity: 150.0 Unit: tablet Total Allowed Fills: 1 Fills Dispensed: 0 PEG-3350 with Electrolytes (Eqv-GoLYTELY) oral powder for reconstitution See Instructions, ok to substitute for any gallon prep, # 2 each, 0 Refills, Maintenance, 07/08/25 10:55:00 PM EDT, [facility] #[id number], NEEDS TWO (2) GALLONS, ok to substitute for any gallon prep, 175.3, cm, 06/13/25 10:26:00 EDT, Height, 82, kg, 03/07/25 7:57:00 EDT, Dry Weight Start Date: 07/08/25 Status: Ordered Medication Dispense Status: Completed Quantity: 2.0 Unit: each Total Allowed Fills: 1 Fills Dispensed: 0 Vitamin B12 = 500 mcg, By Mouth, Daily, 0 Refills, Maintenance, 04/07/21 10:05:00 PM EDT Start Date: 04/07/21 Status: Ordered Medication Dispense Status: Completed Total Allowed Fills: 1 Fills Dispensed: 0 Problem List Condition Confirmation Course Effective Dates Status Health St atus Informant 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 Dyspnea Confirmed Active Palpitations Confirmed Active Social History Social History Type Response Smoking Status Former smoker, quit more than 30 days ago entered on: 02/12/25 Sex Sex Representation Male (finding) Patient Care team information Care Team Personnel Name: Dimitrios May RN Position: S RN Member Role: Primary Care Nurse Name: Ankita Ochoa RN Position: S RN Member Role: Primary Care Nurse Name: Delphine Garza RN Position: S RN Member Role: Primary Care Nurse Name: Balwinder Montoya NP Position: [facility] Outreach Member Role: PCP Address: [address] [place] [address] Telecom: Name: Mely Boyd RN Position: S RN Member Role: Primary Care Nurse Name: Kathy Irizarry RN Position: S RN Member Role: Primary Care Nurse Name: Dee Foster RN Position: [facility] RN Member Role: Primary Care Nurse Name: Yola George RN Position: [facility] RN Member Role: Primary Care Nurse Name: Irma Wagoner RN Position: [facility] RN Member Role: Primary Care Nurse Name: Manuela Coleman RN Position: [facility] RN Member Role: Primary Care Nurse Name: Adam Ocasio Position: S RN Member Role: Primary Care Nurse Name: Kishor Chen RN Position: [facility] RN Member Role: Primary Care Nurse Name: Kelvin Leary LPN Position: S RN Member Role: Primary Care Nurse Name: Cherelle Meza LPN Position: [facility] RN Member Role: Primary Care Nurse Name: Amberly Jiang LPN Position: [facility] RN Member Role: Primary Care Nurse Name: Sandra Gonzalez RN Position: [facility] RN Member Role: Primary Care Nurse Care Team Related Persons Name: YADI PUENTESIC Name: SHARON Name: NIKKI DIAZ Insurance Providers Guarantor name: ANALILIA PUENTES Health Plan Information #: 1 Payer: [employer] Payer Identifier: NA Member Number: [id number] Group Number: NA Subscriber Identifier: NA Relationship to Subscriber: self Coverage Type: NA Coverage Verification Date: NA Telecom: NA Address:
--- OUTSIDE RECORDS SUMMARY | 2025-07-12 07:25 | XMS_ITS | Encounter Summary ---
Author Name [facility] [place] [facility] [place] [facility] [place] Address [address] [place] [address] Care Team Providers Care White Shoe Ragger Name Role Phone MARCHCHRIS Primary Care Provider [...] Name Patient's Relationship to Policy Multani ERIC [facility] (WNR) MEDICARE (M) [facility] (WNR) Nov 15, 2016 [id number] ADRIENNE PUENTES ON PATIENT [facility] (WNR) MEDICARE ADVANTAGE DE PPOD VALUE DB DS Nov 15, 2017 [id number] ADRIENNE PUENTES ON PATIENT Selected Encounter This section includes the information on record at [place] for the Encounter. Date/Time Encounter Type Encounter Description Reason Pro vider Source Jul 12, 2025 11:25 AM Outpatient Encounter PRIMARY CARE/MEDICINE IHE Encounter Template [...] 20 appointments. The data comes from all [place] treatment facilities. Appointment Date/Time Appointment Type Appointme nt Facility Name Jul 20, 2025 09:30 AM AMBULATORY - MEDICINE [facility] Aug 03, 2025 08:45 AM AMBULATORY - MEDICINE [facility] Sep 18, 2025 02:00 PM AMBULATORY - PSYCHIATRY [facility] Active, Pending, and Scheduled Orders This section includes a listing of several types of active, pending, and scheduled orders, including clinic medications orders, diagnostic test orders, procedure orders and consult orders; where the start date of the order is 45 days before the date of the Encounter or 45 days after the date of theEncounter. The data comes from all [facility] facilities. Test Date/Time Test Type Test Details Facility Name Jul 12, 2025 11:52 AM Laboratory - Chemistry Order BASIC METABOLIC PANEL (non-fasting) BLOOD (SST-SERUM) [facility] Jul 12, 2025 11:52 AM Laboratory - Chemistry Order LIPID PANEL, NON FASTING BLOOD (SST-SERUM) [facility] Jul 12, 2025 11:52 AM Laboratory - Chemistry Order LIVER FUNCTION BLOOD (SST-SERUM) [facility] Jul 12, 2025 11:52 AM Laboratory - Chemistry Order CBC BLOOD (LAV-BLOOD) [facility] Jul 12, 2025 11:52 AM Laboratory - Chemistry Order VITAMIN D (25-OH) BLOOD (SST-SERUM) SP [facility] Jul 12, 2025 11:52 AM Laboratory - Chemistry Order VITAMIN B12 BLOOD (SST-SERUM) [facility] Jul 12, 2025 11:52 AM Laboratory - Chemistry Order HEMOGLOBIN A1C PANEL BLOOD (LAV-BLOOD) [facility] Jul 12, 2025 11:52 AM Laboratory - Chemistry Order TSH BLOOD (SST-SERUM) [facility] Jul 12, 2025 11:52 AM Laboratory - Chemistry Order MICROALBUMIN CREATININE RATIO PANEL URINE (RANDOM) SP [facility] Jul 12, 2025 11:52 AM Laboratory - Chemistry Order VALPROIC ACID BLOOD (LAV-PLASMA) [facility] SP [facility] Vital Signs: All taken on the encounter date This section contains inpatient and outpatient Vital Signs collected on the date of the Encounter. Date/Time Temperature Pulse Blood Pressure Respiratory Rate SP02 Pain Height Weight Body Mass Index Source Jul 12, 2025 11:25 AM 98.7 F 88 /min 129/77 mm[Hg] 98 % 183.8 lb 28 [facility] Social History: Smoking Status (Most current) and Tobacco Use (All prior to encounter date) This section includes the most current, and the historical, smoking and tobacco- related health factors from the [place] facility where the Encounter took place. Current Smoking Status This section includes the most current smoking, or tobacco-related health factor, from the [place] facility where the Encounter took place. Date/Time Current Smoking Status Comment Facil ity Feb 13, 2025 01:04 PM [place]-TOBACCO NEVER U SED CIGARETTES [facility] Tobacco Use History This section includes a history of the smoking, or tobacco-related health factors, that were collected on or before the date of the Encounter. The data comes from the [place] facility where the Encounter took place. Date/Time Smoking Status/Tobacco Use Comment F acility Feb 13, 2025 01:04 PM VA-TOBACCO NEVER U SED OTHER TYPE [facility] Aug 13, 2023 11:00 AM VA-TOBACCO FORMER USER [facility] Aug 13, 2023 11:00 AM VA-TOBACCO QUIT 15 YRS OR MORE [facility] Encounter Notes: All associated encounter notes This section contains the clinical notes associated to the Encounter. Date/Time Encounter Note(s) Provider Source Jul 12, 2025 11:25 AM PREVENTIVE MEDICIN E NURSING NOTE: LOCAL TITLE: CLINICAL REMINDERS/NURSING STANDARD TITLE: PREVENTIVE MEDICINE NURSING NOTE DATE OF NOTE: JUL 12, 2025@11:25 ENTRY DATE: JUL 12, 2025@11:26 AUTHOR: GRETCHEN MORATAYA COSIGNER: URGENCY: STATUS: COMPLETED Suicide Screen: C-SSRS Screening [place] Suicide Severity Rating Scale (C-SSRS) screener 1. Over the past month, have you wished you were or wished you could go to sleep and not wake up? No 2. Over the past month, have you had any actual thoughts of killing yourself? No 3. Over the past month, have you been thinking about how you might do this? Response not required due to responses to other questions. 4. Over the past month, have you had these thoughts and had some intention of acting on them? Response not required due to responses to other questions. 5. Over the past month, have you started to work out or worked out the details of how to kill yourself? Response not required due to responses to other questions. 6. If yes, at any time in the past month did you intend to carry out this plan? Response not required due to responses to other questions. 7. In your lifetime, have you ever done anything, started to do anything, or prepared to do anything to end your life (for example, collected pills, obtained a gun, gave away valuables, went to the roof but didn't jump)? No 8. If YES, was this within the past 3 months? Response not required due to responses to other questions. COVID-19 Immunization: Patient educated on the need for receiving COVID-19 (SARS-CoV-2) immunization either at [facility] or outside facility. PAVE Foot Check: Patient indicates foot exam (including monofilament test for sensation) was performed in the past year in the private sector: Date: March 16, 2025 Result: See podiarty note. /davon/ GRETCHEN MORATAYA LPN LPN Signed: 07/12/2025 11:28 GRETCHEN MORATAYA [place]TE
--- OUTSIDE RECORDS SUMMARY | 2025-07-12 07:30 | XMS_ITS | Encounter Summary ---
Author Name [facility] [facility] [place] [facility] [place] [address] [place] [id number] Care Team Providers Care Upset Operator Name Role Phone CHRIS SENA Primary [...] Patient's Relationship to Policy [facility] (WNR) MEDICARE (M) [facility] (WNR) Nov 15, 2016 [id number] PAT[address] [facility] (WNR) MEDICARE ADVANTAGE [place] PPOD VALUE DB DS Nov 15, 2017 [id number] ADRIENNE PUENTES ON PATIENT Selected Encounter This section includes the information on record at [place] for the Encounter. Date/Time Encounter Type Encounter Description Reason Provider Source Jul 12, 2025 11:30 AM OFFICE O/P EST HI 40 MIN PRIMARY CARE/MEDICINE ICD-10-CM E11.9 Type 2 diabetes mellitus without complications CHRIS SENA Encounter Template Text not used by [facility] Assessments - Encounter Diagnoses This section includes the primary and secondary diagnoses documented for the Encounter. Date/Time Primary/Secondary Diagnosis Diagnosis Name Provider Source Jul 12, 2025 12:04 PM PRIMARY Type 2 diabetes mellitus without complications MAY,CHRIS Diana [facility] Jul 12, 2025 12:04 PM SECONDARY Tellez's esophagus without dysplasia MAY,CHRIS Diana [place] Jul 12, 2025 12:04 PM SECONDARY Carcinoma in situ of prostate MARCH,CHRIS Diana [place] Jul 12, 2025 12:04 PM SECONDARY Essential (primary) hypertension MARCH,CHRIS Diana [place] Jul 12, 2025 12:04 PM SECONDARY Iron deficiency anemia, unspecified MAY,CHRIS Diana [place] Plan of Treatment: Future Appointments (+ 6 months) and Future Tests (+/- 45 days) The Plan of Treatment section includes future care activities for the patient from all [place] [facility] This section includes future appointments and future orders which are active, pending or scheduled. Future Appointments This section includes appointments that were scheduled to occur 6 months from the date of the Encounter, up to a maximum of 20 appointments. The data comes from all [place] [facility]. Appointment Date/Time Appointment Type Appointme Facility Name Jul 20, 2025 09:30 AM AMBULATORY - MEDICINE [facility] Aug 03, 2025 08:45 AM AMBULATORY - MEDICINE [facility] Sep 18, 2025 02:00 PM AMBULATORY - PSYCHIATRY [facility] Active, Pending, and Scheduled Orders This [...] - Chemistry Order LIVER FUNCTION BLOOD (SST-SERUM) [facility] Jul 12, 2025 11:52 AM Laboratory - Chemistry Order LIPID PANEL, NON FASTING BLOOD (SST-SERUM) [facility] Jul 12, 2025 11:52 AM Laboratory - Chemistry Order BASIC METABOLIC PANEL (non-fasting) BLOOD (SST-SERUM) [facility] Jul 12, 2025 11:52 AM Laboratory - Chemistry Order CBC BLOOD (LAV-BLOOD) [facility] Jul 12, 2025 11:52 AM Laboratory - Chemistry Order VITAMIN D (25-OH) BLOOD (SST-SERUM) SP ONCE [facility] Jul 12, 2025 11:52 AM Laboratory - Chemistry Order VITAMIN B12 BLOOD (SST-SERUM) [facility] Jul 12, 2025 11:52 AM Laboratory - Chemistry Order HEMOGLOBIN A1C PANEL BLOOD (LAV-BLOOD) [facility] Jul 12, 2025 11:52 AM Laboratory - Chemistry Order TSH BLOOD (SST-SERUM) [facility] Jul 12, 2025 11:52 AM Laboratory - Chemistry Order VALPROIC ACID BLOOD (LAV-PLASMA) [facility] Jul 12, 2025 11:52 AM Laboratory - Chemistry Order MICROALBUMIN CREATININE RATIO PANEL URINE (RANDOM) [facility] Social History: Smoking Status (Most current) and Tobacco Use (All prior to encounter date) This section includes the most current, and the historical, smoking and tobacco- related health factors from the [place] facility where the Encounter took place. Current Smoking Status This section includes the most current smoking, or tobacco-related health factor, from the [place] facility where the Encounter took place. Date/Time Current Smoking Status Comment Al[facility] hammer Jun 25, 2022 11:00 AM [place]-TOBACCO QUIT 15 YRS OR MORE [place] Tobacco Use History This section includes a history of the smoking, or tobacco-related health factors, that were collected on or before the date of the Encounter. The data comes from the [place] facility where the Encounter took place. Date/Time Smoking Status/Tobacco Use Comment [facility] Jun 25, 2022 11:00 AM [place]-TOBACCO QUIT 15 YRS OR MORE [facility] May 09, 2021 11:30 AM VA-TOBACCO FORMER USER [facility] May 09, 2021 11:30 AM VA-TOBACCO QUIT 15 YRS OR MORE [place] May 23, 2020 10:54 AM VA-TOBACCO FORMER USER [place] May 23, 2020 10:54 AM VA-TOBACCO QUIT 15 YRS OR MORE [place] Aug 04, 2018 01:44 PM VA-TOBACCO FORMER USER [place] Aug 04, 2018 01:44 PM VA-TOBACCO QUIT 15 YRS OR MORE [facility] Dec 21, 2017 11:00 AM QUIT TOBACCO USE > 7 YEARS AGO [facility] Jan 13, 2017 11:37 AM QUIT TOBACCO USE > 7 YEARS AGO [facility] Jan 21, 2016 01:05 PM QUIT TOBACCO USE > 7 YEARS AGO [facility] Jun 30, 2005 02:26 PM HISTORY OF SMOKING [facility] Apr 16, 2004 09:48 AM HISTORY OF SMOKING stopped tobacco 30 years ago [facility] Oct 15, 2003 12:05 PM QUIT TOBACCO USE > 7 YEARS AGO [facility] Sep 12, 2003 01:27 PM QUIT TOBACCO USE > 7 YEARS AGO [facility] Nov 21, 2002 02:50 PM HISTORY OF SMOKING stopped tobacco 28 years ago [place] Nov 21, 2002 02:50 PM QUIT TOBACCO USE > 7 YEARS AGO stopped tobacco 28 years ago [facility] Aug 18, 2001 10:18 AM HISTORY OF SMOKING QAUIT 25 YEARS AGO [facility] Encounter Notes: All associated encounter notes This section contains the clinical notes associated to the Encounter. Date/Time Encounter Note(s) Provider Source Jul 12, 2025 07:35 AM PHYSICIAN NOTE: LOCAL TITLE: MD NOTE STANDARD TITLE: PHYSICIAN NOTE DATE OF NOTE: JUL 12, 2025@07:35 ENTRY DATE: JUL 12, 2025@07:35:58 AUTHOR: CHRIS SENA EXP COSIGNER: URGENCY: STATUS: COMPLETED Primary Care Progress Note CC: is here to follow up the medical problems listed below HPI: with type II DM, prostate cancer status post radical prostatectomy and XRT in 2004 presented to the outpatient clinic in regular follow-up. EGDs 12/22/1906/03/2025 found normal duodenum but erosive gastritis in the stomach. 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 He presented to the ED 12/15 with pelvic pain. Thoracic surgery was consulted for concern for pubic symphysis abscess. CT abdomen/pelvis and PET/CT negative. Is no longer having pelvic pain. He has occasional palpitations--Stress test today at 1400, and ZIO patch peding per cardiology at [facility]. States he is feeling well. No recent falls. ROS:weight is stable; vision is stable; hearing is good; no fevers or adenopathy; no CP/SOB/KHAN; gi--no diarrhea, hematochezia, melena; --no stones, hematuria, dysuria; skin--no lesions or rash; neuro--no FLANNERY, szs, stroke-like sx; MSK--no new problems HEALTHCARE PROVIDERS: PCP: SIMON Urology: Mckenna richards, Dr. Clifford Thoracic surgery: [facility] GI: Ruth Villarreal Social Hx: The [place] lives alone after being in October 2024. He quit smoking in 1973. He has never used alcohol or marijuana. No regular exercise. [employer] FROM Aug TO Feb Active Medical Problems: Active problems - Computerized Problem List is the source for the followin. Aneurysm of aortic root Echo Dec 2023 4.7 cm Ascending Aortic Aneurysm 2. Heart murmur Echo Dec 2023 Aortic Stenosis 3. Impacted cerumen in left ear 4. Lump 5. Arthropod bite wound 6. Ankle fracture (SNOMED CT 72850610) w surgery 04/08/21 ORIF of a left trimalleolar ankle fracture 7. Onychomycosis of toenails 8. Urinary incontinence 2015Seen by Dr. Clifford for multi channel urodynamic eval to get artificial urinary sphincter (note scanned) 05/19/16 AUS placement following urology yearly. 11/01 cystoscopy neg for cuff erosion 9. History of malignant neoplasm of colon 12/21/14 removal of anal fistula w perianal abscess and rectal colon 12/03 reports due 12/08Nov 23 2018 - colonoscopy [facility] poor prep, FU colonoscopy 5 years 07/29/11 10. Diabetes mellitus (SNOMED CT 20744793) 11. Osteoarthrosis, unspecified whether generalized or localized, involving shou s/p right arthroscopic surgery 11/2011 TKR, R Side FEB 25 ([place]) 12. Animal Bite Spring 2010 - s/p rabies vaccine series [facility] 13. Iron deficiency anemia (SNOMED CT 80387395) 14. Obesity (SNOMED CT 672490831) 15. Cardiovascular Stress Test with Continuous Electrocardiographic Monitoring, Dr. Delaney Cardiology Neg TET 16. Urinary Incontinence Patient is using Depends with good results 17. Fissure in Ano colonoscopy done at [facility] 11/23/06 otherwise wnl see CPRS notes 06/07/15 18. Hyperlipidemia (SNOMED CT 23476758) 19. PROSTATE, MALIGN NEOPLASM Urology is Dr. Beauchamp prostatectomy 2002, radiation 2004, sling 2004 as well. 20. Psoriasis, skin or nails * 21. Hypertension (SNOMED CT 98059330) EKG 12/27/18 NSR w 1AVB EKG SB w 1 AVB normaL STRESS TEST 11/29/13 echo mild lvf, mild calcific degenerative aortic valve senosis, consider f/u 2-3 years holter monitor 11/12 NSR w a few episodes of SVT 22. Bipolar disorder in full remission (SNOMED CT 34538934) 23. Supraventricular tachycardia successful ablation 2002 AVNRT s/p RFA 10/26/19 2 week zio monitor-NSR w episodes of SVT <12 sec 24. Depressive disorder (SNOMED CT 08092767) 25. Gastroesophageal reflux disease with hiatal hernia 10/14/17 Large hiatal hernia. antral erosion 01/29/20 Large paraesophageal hernia--paraesophageal hernia repair 06/04/20 EGD 04/18/2020 see note 04/29/20-barretts esophagus EGD due 04/2023 with hiatal hernia Meds:Active Outpatient Medications (including Supplies): ACCU-CHEK GUIDE (GLUCOSE) TEST STRIP USE 1 STRIP TO TEST ACTIVE BLOOD SUGARS THREE TIMES A DAY BRIEF,PROTECTION PLUS LARGE #[id number] USE 1 BRIEF ACTIVE DIRECTED SIX TIMES A DAY BRIEF,PROTECTIVE SUPER ABS LG ATTENDS USE 1 BRIEF HOLD DIRECTED SIX TIMES A DAY Indication: URINARY AND BOWEL INCONTINENCE CARBOXYMETHYLCELLULOSE NA 0.5% OPH SOLN INSTILL 1 DROP ACTIVE INTO EACH EYE FOUR TIMES DAILY NEEDED Indication: FOR DRY EYE DESONIDE 0.05% CREAM APPLY A SMALL AMOUNT TOPICALLY TWICE ACTIVE DAILY NEEDED FOR FACIAL RASH. MAXIMUM OF 14 DAYS A MONTH Indication: FOR SKIN INFLAMMATION DICLOFENAC NA 1% TOP GEL APPLY 2 GRAMS TOPICALLY FOUR ACTIVE TIMES DAILY NEEDED FOR OSTEOARTHRITIS - USE DOSING CARD PROVIDED IN BOX DIVALPROEX 500MG 24HR (ER) SA TAB TAKE ONE TABLET BY MOUTH ACTIVE TWICE DAILY Indication: FOR BIPOLAR DISORDER INSULIN,ASPART,HUMAN 100 UNIT/ML INJ INJECT 10 UNITS ACTIVE SUBCUTANEOUSLY EVERY MORNING AND INJECT 10 UNITS ONCE DAILY AT LUNCH AND INJECT 16 UNITS EVERY EVENING BEFORE SUPPER INSULIN,GLARGINE,HUMAN 100 UNIT/ML INJ INJECT 30 UNITS ACTIVE SUBCUTANEOUSLY ONCE DAILY Indication: FOR DIABETES KETOCONAZOLE 2% CREAM APPLY A THIN LAYER TOPICALLY TWICE ACTIVE DAILY FOR FOUR WEEKS, THEN NEEDED Indication: FOR SEBORRHEIC DERMATITIS KETOCONAZOLE 2% SHAMPOO SHAMPOO SMALL AMOUNT TOPICALLY ACTIVE TWICE A WEEK NEEDED APPLY FOR 8 WEEKS, THEN NEEDED Indication: SCALP RASH LANCET,SOFTCLIX USE 1 LANCET DIRECTED THREE TIMES A DAY ACTIVE TO TEST BLOOD SUGAR Indication: DIABETES LISINOPRIL 20MG TAB TAKE ONE TABLET BY MOUTH ONCE DAILY TO ACTIVE CONTROL BLOOD PRESSURE NEEDLE,PEN 31G,5MM USE 1 NEEDLE SUBCUTANEOUSLY FOUR TIMES ACTIVE A DAY FOR USE WITH PEN DEVICE [...] VITAMIN D3 (CHOLECALCIFEROL) TAB BY MOUTH ACTIVE 22 Total Medications No Active Remote Medications for this patient All:Patient has answered NKA PEx: Wt: 181 lb [82.10 kg] (02/13/2025 13:03); Ht: 68 in [172.7 cm] (02/13/2025 13:03) Blood Pressure: 129/77 (07/12/2025 11:25) Pain: 0 (09/14/2024 13:18) Patient Height: 68 in [172.7 cm] (02/13/2025 13:03) Patient Weight: 183.8 lb [83.37 kg] (07/12/2025 11:25) Pulse: 88 (07/12/2025 11:25) Respiration: 19 (02/13/2025 13:03) Temperature: 98.7 F [37.1 C] (07/12/2025 11:25) is pleasant and appropriate; gait is normal; HEENT: PERRL, EOMI, mucous membranes are moist; neck is without nodes, bruits or JVD; lungs are CTA bilaterally, no wheezes, rales or rhonchi; heart is with rrr, no m,r,g. abd- soft and nontender, no h/s megaly or mass; extrems are without cce; neuro--a&ox3 and coop, nonfocal Data: All available test results were reviewed with the Collection DT Spec WBC HGB HCT PLT K+/Pot Sodium HGBA1c 02/13/2025 13:48 BLOOD 6.8 H 02/13/2025 13:48 BLOOD 8.54 13.2 40.5 314 02/13/2025 13:48 SERUM 4.7 136 09/14/2024 13:38 BLOOD 5.55 13.2 38.4 L 238 09/14/2024 13:38 BLOOD 7.9 H Collection DT Spec GLUCOSE CREATIN AST ALT T BILI ALK OSBALDO CHOL 02/13/2025 13:48 SERUM 298 H 0.70 17 28 0.5 123 106 12/22/2023 10:54 SERUM 230 H 0.81 15 19 0.9 90 98 10/27/2022 14:19 SERUM 124 H 0.73 06/25/2022 11:38 SERUM 281 H 0.79 14 17 0.8 84 12/19/2021 08:20 SERUM 132 H 0.83 13 10 0.6 147 Collection DT Spec LDL-c HDL TRIG TSH SR- B12 SR- VIT D25 HIV Ag/ 02/13/2025 13:48 SERUM 0.54 44 02/13/2025 13:48 SERUM 35 46 124 12/22/2023 10:54 SERUM 41 39 L 89 0.57 32 12/19/2021 08:20 SERUM 78 40 143 11/27/2020 10:51 SERUM 71 49 156 H 12/22/23 echo--Normal LV and RV size, ef 65%. Mild with mild AR, mild [place] Dilaters ascending aorta--4.7 cm, no effusion A/P: All instructions were explained for the , who expressed understanding and agreement. 1. Diabetes mellitus HbA1c 6.8% in August. This is primarily followed by his community PCP. He states he has improved his diet and expects his A1c to be lower. Continue meds. Declined statin. 2. Hx Iron deficiency anemia : H/H have been stable. Recheck today. He denies any hematochezia or melena. Not maintained on an iron supplement. 3. Hyperlipidemia: Update labs today. He has repeatedly declined statin therapy. Continue aspirin. Discussed heart healthy diet including reduction of animal fats and increased exercise as [place] components of overall CV health. He voiced understanding. 4. PROSTATE, MALIGN NEOPLASM: Diagnosed in 2004 now status post radical prostatectomy and XRT. He does have some urinary incontinence. Following with urology at [facility]. Con tinue trospium and methenamine hippurate 5. Hypertension: Blood pressure within target range today at 129/77. Continue lisinopril 20 mg daily. Discussed heart healthy diet including avoidance of added salt at the table and increased exercise as [place] components of overall CV health. He voiced understanding. 6. Gastroesophageal reflux disease with hiatal hernia and Tellez's esophagus. Now on pantoprazole. He has an appointment with GI Dr Miranda every 6 months. He denies any symptoms. 7. HCM--colon screen--not indicated--he has had a parital colectomy for colon cancer (2010), has a periodic colonoscopy--last in 2023--will request notes prostate screen--hx prostate cancer, follow up with urology 8. Follow up 6 months, or as needed. Labs now JORGE Booker, please obtain notes from [facility] for colonoscopy in 2023 On the date of the encounter, I spent 40 minutes on some or all of the following: chart review, history, physical examination, treatment planning, education and counselling of the patient/family/caregiver, placing orders, communicating with other health care providers, and documentation in the electronic health record. Medication Reconciliation: Outpatient: Has the patient been taking medications as documented in the EMLR? No: Discrepencies were identified. See below. Essential Medication List for Review used to complete this medication reconciliation. INCLUDED IN THIS LIST: Alphabetical list of active outpatient prescriptions dispensed from this [place] (local) and dispensed from another [place] or [place] facility (remote) as well as inpatient orders (local, pending and active), local clinic medications, locally documented non-VA medications, and local prescriptions that have or been discontinued in the past 90 days. - Discrepancies were identified, addressed, and discussed with the patient/caregiver at this encounter. Discrepancies: pantoprazole, methenamin hippurate and trspium added to the non-VA meds - All changes in medications, including all non-VA/Herbal/OTC medications were entered into CPRS. - If there were any medications the patient should no longer take, they were discontinued. - The patient/caregiver was instructed to update this list, discard old lists, and take this list to the next appointment, whether with a VA or non-VA provider. /davon/ Chris Sena MD INTERNAL MEDICINE and RHEUMATOLOGY Signed: 07/12/2025 12:04 CHRIS SENA
--- OUTSIDE RECORDS SUMMARY | 2025-07-12 09:36 | XMS_ITS | Continuity of Care Document ---
Author Name [facility] Organization [facility] Care Team Providers Care [facility] Teacher Name Role Phone [facility] Unavailable Unavailable Problems Combined list of problems from Department of Defense and Veterans Affairs facilities. It does not include entries that were removed or entered in error. Problem Status Onset Date Problem Type Date of Resolution Comments Source Aneurysm of aortic root Active Condition Dec 27, 2023 Entered By: DIONTE ADDISON Comment: Echo Dec 2023 4.7 cm Ascending Aortic Aneurysm [place] Animal Bite Active Condition Sep 18, 2011 Entered By: TONYA EPPERSON Comment: Spring 2010 - s/p rabies vaccine series [facility] [place] Ankle fracture (SNOMED CT 12185628) Active Condition April 14, 2022 Entered By: ILEANA CONWAY Comment: w surgery 04/08/21 ORIF of a left trimalleolar ankle fracture [facility] Arthropod bite wound Active Condition [facility] Adair's esophagus Active Condition [facility] Bipolar disorder in full remission (SNOMED CT 47939577) Active Condition [facility] Cardiovascular Stress Test with Continuous Electrocardiographic Monitoring, Phys Active Condition April 03 8 Entered By: NADYA PACKER Comment: Dr. Delaney Cardiology Neg TET [facility] Depressive disorder (SNOMED CT 46315670) Active Condition [facility] Diabetes mellitus (SNOMED CT 49642992) Active Condition [place] DIAPHRAGMATIC HERNIA Active Condition [place] ESOPHAGITIS, UNSP. Active Condition [place] Fissure in Ano Active Condition Dec Entered By: NADYA PACKER Comment: colonoscopy done at [facility] 11/23/06 otherwise wnlJu 2014 Entered By: TONYA EPPERSON Comment: see CPRS notes 06/07/15 [facility] Gastroesophageal reflux disease with hiatal hernia Active Condition Jul 22, 2005 Entered By: SELVIN HOLLAND AM Comment: with hiatal herniaJan 2017 Entered By: ILEANA CONWAY Comment: 10/14/17 Large hiatal hernia. antral erosionNov 2019 Entered By: ILEANA CONWAY Comment: 01/29/20 Large paraesophageal hernia--paraeso phageal hernia repair 06/04/20Aug 2019 Entered By: ILEANA CONWAY Comment: EGD 04/18/2020 see note 04/29/20-adair s esophagus EGD due 04/2023 [place] Heart murmur Active Condition Dec 27, 2023 Entered By: DIONTE ADDISON Comment: Echo Dec 2023 Aortic Stenosis [place] History of malignant neoplasm of colon Active Condition Jun 30 12 Entered By: TONYA EPPERSON Comment: 07/29/11Feb 01, 2015 Entered By: ILEANA CONWAY Comment: 12/21/14 removal of anal fistula w perianal abscess and rectalJan 2018 Entered By: ILEANA CONWAY Comment: colon 12/03 reports due 2018 Entered By: WANDA STAPLES Comment: Nov 23 2018 - colonoscopy [facility] poor prep, FU colonoscopy 5 years [place] Hyperlipidemia (SNOMED CT 32844547) Active Condition [place] Hypertension (SNOMED CT 20142723) Active Condition Dec 27, 2018 Entered By: ILEANA CONWAY Comment: EKG 12/27/18 NSR w 1AVBJul 2019 Entered By: ILEANA CONWAY Comment: EKG SB w 1 AVBJul 2019 Entered By: ILEANA CONWAY Comment: normaL STRESS TEST 11/29/13Oct 2019 Entered By: ILEANA CONWAY Comment: echo mild lvf, mild calcific degenerative aortic valve senosis, consider f/u 2-3 yearsNov 2019 Entered By: ILEANA CONWAY Comment: holter monitor 11/12 NSR w a few episodes of SVT [facility] Impacted cerumen in left ear Active Condition [facility] Iron deficiency anemia (SNOMED CT 28061232) Active Condition [place] Lump Active Condition [facility] Obesity (SNOMED CT 373775263) Active Condition [place] Onychomycosis of toenails Active Condition [facility] Osteoarthrosis, unspecified whether generalized or localized, involving shoulder Active Condition Apr 22, 2012 Entered By: TONYA EPPERSON Comment: s/p right arthroscopic surgery 2012 Entered By: PALOMO STAHL Comment: TKR, R Side FEB 25 ([place]) [place] PROSTATE, MALIGN NEOPLASM Active Condition Jun 30, 2005 Entered By: SELVIN HOLLAND AM Comment: prostatectomy 2002, radiation 2004, sling 2004 as well.Jun 17, 2007 Entered By: NADYA PACKER Comment: Urology is Dr. Nito FLORENCE Psoriasis, skin or nails * (ICD-9-CM 696.1) Active Condition [place] SCREEN MAL NEOP-RECTUM Active Condition [place] Supraventricular tachycardia Active Condition Nov 02, 2003 Entered By: MATHEW FRANKS Comment: successful ablation 2016 Entered By: ILEANA CONWAY Comment: AVNRT s/p RFADec 2018 Entered By: ILEANA CONWAY Comment: 10/26/19 2 week zio monitor-NSR w episodes of SVT <12 sec [facility] Urinary incontinence Active Condition Sep 11, 2015 Entered By: ILEANA CONWAY Comment: 2015Seen by Dr. Clifford for multi channel urodynamic evalOct 2014 Entered By: ILEANA CONWAY Comment: to get artificial urinary sphincter (note scanned)Aug 06, 2016 Entered By: ILEANA CONWAY Comment: 05/19/16 AUS placementJun 2016 Entered By: ILEANA CONWAY Comment: following urology yearly.Jan 12, 2019 Entered By: ILEANA CONWAY Comment: 11/01 cystoscopy neg for cuff erosion [facility] Urinary Incontinence Active Condition Jun 29, 2007 Entered By: NADYA PACKER Comment: Patient is using Depends with good results [facility] adrenal adenoma left Inactive Condition 12/24/2006 [place] Anemia Inactive Condition 04/22/2011 [facility] Other Adverse food Reactions, not elsewhere classified (ICD-9-CM 995.7) Inactive Condition 06/07/2015 [facility] Diagnosis: ICD-10-CM E11.9 Type 2 diabetes mellitus without complications Active Diagnosis [place] Diagnosis: ICD-10-CM E11.51 Type 2 diabetes w diabetic peripheral angiopath w/o gangrene Active Diagnosis [facility] Diagnosis: ICD-10-CM F31.70 Bipolar disord, currently in remis, most recent episode unsp Active Diagnosis [place] Diagnosis: ICD-10-CM K03.81 Cracked tooth Active Diagnosis [facility] Diagnosis: ICD-10-CM L60.3 Nail dystrophy Active Diagnosis [facility] Diagnosis: ICD-10-CM L40.0 Psoriasis vulgaris Active Diagnosis [facility] Diagnosis: ICD-10-CM L21.8 Other seborrheic dermatitis Active Diagnosis [facility] Diagnosis: ICD-10-CM K03.6 Deposits [accretions] on teeth Active Diagnosis [facility] Diagnosis: ICD-10-CM S30.861A Insect bite (nonvenomous) of abdominal wall, init encntr Active Diagnosis [facility] Diagnosis: ICD-10-CM Z71.89 Other specified counseling Active Diagnosis [facility] Diagnosis: ICD-10-CM Z23 Encounter for immunization Active Diagnosis [place] Diagnosis: ICD-10-CM F32.A Depression, unspecified Active Diagnosis [place] Diagnosis: ICD-10-CM I10 Essential (primary) hypertension Active Diagnosis [facility] Diagnosis: ICD-10-CM 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 Medication Details Route Status Patient Instructions Prescription Expires Prescription Number Last Dispense Date Ordering Provider Order Date Order Qty Source ASPIRIN 81MG TAB,EC TAKE ONE TABLET BY MOUTH ONCE DAILY ORAL ACTIVE FABAL ICE 2018 [facility] BETAMETHASO NE DIPROPIONAT E 0.05% CREAM,TOP APPLY DIRECTED TOPICALL Y TWICE DAILY NEEDED FOR PSORIASI S TOPICA L 05/11/2024 [id number] 4 JACOBO WOMACK 2022 45 [facility] CARBOXYMETH YLCELLULOSE NA 0.5% SOLN,OPH INSTILL 1 DROP INTO EACH EYE FOUR TIMES DAILY NEEDED FOR DRY EYE OPHTHA LMIC ACTIVE 03/03/2026 [id number] MARLYN GOLDSMITH 2024 45 [facility] CARBOXYMETH YLCELLULOSE NA 0.5% SOLN,OPH INSTILL 1 DROP INTO EACH EYE FOUR TIMES DAILY NEEDED FOR DRY EYE OPHTHA LMIC DISCONT INUED 06/20/2025 [id number] Rayshawn MAURO 2023 45 [facility] CINNAMON CAP/TAB TAKE BY MOUTH ORAL ACTIVE PATRICK-GR LAVON,CYNTH IA 2021 [place] CYANOCOBALA MIN TAB TAKE BY MOUTH ORAL ACTIVE PATRICK-GR LAVON,CYNTH IA 2018 [place] DESONIDE 0.05% CREAM,TOP APPLY A SMALL AMOUNT TOPICALL Y TWICE DAILY NEEDED FOR FACIAL RASH. MAXIMUM OF 14 DAYS A MONTH TOPICA L ACTIVE 12/29/2025 [id number] JACOBO WOMACK 2024 60 [place] DICLOFENAC NA 1% GEL,TOP APPLY 2 GRAMS TOPICALL Y FOUR TIMES DAILY NEEDED FOR OSTEOART HRITIS - USE DOSING CARD PROVIDED IN BOX KEON Prieto ACTIVE 12/07/2025 [id number] 5 Wayne STINSON 2024 100 [place] DICLOFENAC NA 1% GEL,TOP APPLY 2 GRAMS TOPICALL Y FOUR TIMES DAILY NEEDED FOR OSTEOART HRITIS - USE DOSING CARD PROVIDED IN BOX KEON Prieto DISCONT INUED 04/20/2025 [id number] BLAKE ADDISON 2023 100 [place] DIVALPROEX NA 500MG TAB,SA TAKE ONE TABLET BY MOUTH TWICE DAILY FOR BIPOLAR DISORDER ORAL ACTIVE 04/18/2026 [id number] 5 BERNADETTE HERRERA F 2024 120 [place] DIVALPROEX NA 500MG TAB,SA TAKE ONE TABLET BY MOUTH TWICE DAILY FOR BIPOLAR DISORDER ORAL DISCONT INUED (EDIT) 01/30/2026 [id number] 5 BERNADETTE HERRERA F 2024 60 [place] DIVALPROEX NA 500MG TAB,SA TAKE ONE TABLET BY MOUTH TWICE DAILY FOR BIPOLAR DISORDER ORAL DISCONT INUED 06/21/2025 [id number] 5 BERNADETTE HERRERA F 2023 60 [place] DIVALPROEX NA 500MG TAB,SA TAKE ONE TABLET BY MOUTH ONCE DAILY NEEDED FOR BIPOLAR DISORDER ORAL DISCONT INUED (EDIT) 06/22/2024 [id number] 4 Pablito JONES 2023 20 [place] INSULIN,ASP ART,HUMAN 100 UNT/ML INJ INJECT 10 UNITS SUBCUTAN EOUSLY EVERY MORNING AND INJECT 10 UNITS ONCE DAILY AT LUNCH AND INJECT 16 UNITS EVERY EVENING BEFORE SUPPER SUBCUT ANEOUS DISCONT INUED BY TALI Hameed 12/07/2025 [id number] 5 Wayne STINSON 2024 3 [place] INSULIN,ASP ART,HUMAN 100 UNT/ML INJ INJECT 10 UNITS SUBCUTAN EOUSLY EVERY MORNING AND INJECT 10 UNITS ONCE DAILY AT LUNCH AND INJECT 16 UNITS EVERY EVENING BEFORE SUPPER SUBCUT ANEOUS DISCONT INUED 03/27/2025 [id number] BLAKE ADDISON 2023 3 [place] INSULIN,GLA RGINE,HUMAN 100 UNT/ML INJ INJECT 30 UNITS SUBCUTAN EOUSLY ONCE DAILY FOR DIABETES SUBCUT ANEOUS ACTIVE 03/17/2026 [id number] Wayne STINSON A 2024 2 [place] INSULIN,GLA RGINE,HUMAN 100 UNT/ML INJ INJECT 30 UNITS SUBCUTAN EOUSLY ONCE DAILY SUBCUT ANEOUS DISCONT INUED 04/11/2025 [id number] BLAKE ADDISON 2024 3 [place] INSULIN,GLA RGINE-YFGN 100UNIT/ML INJ INJECT 30 UNITS SUBCUTAN EOUSLY ONCE DAILY SUBCUT ANEOUS DISCONT INUED (EDIT) 04/20/2025 [id number] 5 BLAKE ADDISON 2023 3 [place] KETOCONAZOL E 2% CREAM,TOP APPLY A THIN LAYER TOPICALL Y TWICE DAILY FOR SEBORRHE IC DERMATIT IS FOR FOUR WEEKS, THEN NEEDED TOPICA L ACTIVE 01/26/2026 [id number] 5 JACOBO WOMACK 2024 120 [facility] KETOCONAZOL E 2% SHAMPOO SHAMPOO SMALL AMOUNT TOPICALL Y TWICE A WEEK NEEDED SCALP RASH APPLY FOR 8 WEEKS, THEN NEEDED TOPICA L ACTIVE 02/23/2026 [id number] 5 JACOBO WOMACK 2024 120 [facility] LISINOPRIL 20MG TAB TAKE ONE TABLET BY MOUTH ONCE DAILY TO CONTROL BLOOD PRESSURE ORAL ACTIVE 12/07/2025 [id number] 5 Wayne STINSON A 2024 90 [place] LISINOPRIL 20MG TAB TAKE ONE TABLET BY MOUTH ONCE DAILY TO CONTROL BLOOD PRESSURE ORAL DISCONT INUED 12/16/2024 [id number] BLAKE ADDISON 2023 90 [place] MAGNESIUM OXIDE TAB TAKE BY MOUTH ORAL ACTIVE RICHY SHAW 2021 [place] METHENAMINE HIPPURATE 1GM TAB TAKE ONE TABLET BY MOUTH TWICE DAILY ORAL ACTIVE NIELS SENA [place] MULTIVITAMI NS W/MINERALS TAB TAKE ONE TABLET BY MOUTH ONCE DAILY ORAL ACTIVE SANON,AL ICE 2018 [facility] MUPIROCIN 2% OINT,TOP APPLY THIN LAYER TOPICALL Y TWICE DAILY TOPICA L 10/14/2024 [id number] SHEILA MCDERMOTT 2023 22 [facility] OMEPRAZOLE 20MG CAP,EC TAKE TWO CAPSULES BY MOUTH EVERY MORNING 30 MINUTES BEFORE BREAKFAS T ORAL ACTIVE 11/22/2025 [id number] 5 Wayne STINSON 2024 60 [facility] IELD OMEPRAZOLE 20MG CAP,EC TAKE TWO CAPSULES BY MOUTH EVERY MORNING 30 MINUTES BEFORE BREAKFAS T ORAL DISCONT INUED 09/27/2024 [id number] 4 BLAKE ADDISON 2022 60 [facility] IELD PANTOPRAZOL E NA 20MG TAB,EC TAKE ONE TABLET BY MOUTH TWICE DAILY ORAL ACTIVE MARCHNIELS P 2024 [facility] IELD TROSPIUM CL 20MG TAB TAKE ONE TABLET BY MOUTH ONCE DAILY ORAL ACTIVE MARCHNIELS P 2024 [facility] IELD TURMERIC CAP/TAB TAKE BY MOUTH ORAL ACTIVE RICHY SHAW 2018 [facility] IELD VITAMIN D3 (CHOLECALCI FEROL) TAB TAKE BY MOUTH ORAL ACTIVE RICHY SHAW 2018 [facility] IELD Immunizations Combined list of available immunizations from the Department of Defense and [facility] facilities. Immunization Series Date Given Administered By Site Reaction Lot Number CVX Code Drug Lay Midwife Status Comments Source COVID-19 (MODERNA), MRNA, LNP-S, PF, 50 MCG/0.5 ML (AGES 12+ YEARS) 2023 AMELIA JONES BIGG RIGHT DELTO ID [id number] 312 complet ed [facility] IELD INFLUENZA, HIGH-DOSE, TRIVALENT, PF 2023 AMELIA JONES BIGG LEFT DELTO ID [id number] 135 complet ed [facility] IELD COVID-19 (MODERNA), MRNA, LNP-S, PF, 50 MCG/0.5 ML (AGES 12+ YEARS) 1 2023 AUSTINVICTOR MANUEL LEFT DELTO ID [id number] 312 complet ed [facility] IELD INFLUENZA, HIGH-DOSE, QUADRIVALENT 2022 HOWARD WRIGHT E RIGHT DELTO ID [id number] 197 complet ed [facility] [place] TDAP 2022 ORLANDO AGUIRRE RIGHT DELTO ID [id number] 115 complet ed [facility] IELD COVID-19 (MODERNA), MRNA, LNP-S, BIVALENT BOOSTER, PF, 50 MCG/0.5 ML OR 25MCG/0.25 ML DOSE 1 2021 229 complet ed MOD; [id number]; 3 [facility] IELD INFLUENZA, INJECTABLE, QUADRIVALENT, PRESERVATIVE FREE 2021 150 complet ed [facility] PNEUMOCOCCAL POLYSACCHARID E [id number] 2021 33 complet ed [facility] IELD COVID-19 (MODERNA), MRNA, LNP-S, PF, 100 MCG OR 50 MCG DOSE 3 2020 207 complet ed MOD; [id number]; 2 [facility] IELD INFLUENZA VACCINE, QUADRIVALENT, ADJUVANTED 2020 205 complet ed [facility] COVID-19 (MODERNA), MRNA, LNP-S, PF, 100 MCG/0.5 ML DOSE 2 2020 207 complet ed MOD; [id number]; 1 [facility] IELD COVID-19 (MODERNA), MRNA, LNP-S, PF, 100 MCG/0.5 ML DOSE 1 2020 207 complet ed MOD; [id number]; 1 [facility] IELD ZOSTER RECOMBINANT 2 2019 187 complet ed [facility] IELD INFLUENZA, INJECTABLE, QUADRIVALENT, PRESERVATIVE FREE 2019 150 complet ed [place] ZOSTER RECOMBINANT 1 2019 187 complet ed [place] INFLUENZA, INJECTABLE, QUADRIVALENT, PRESERVATIVE FREE 2018 150 complet ed Site: Left Deltoid [place] INFLUENZA, SEASONAL, INJECTABLE 2017 141 complet ed Site: Right Deltoid [place] INFLUENZA, SEASONAL, INJECTABLE 2016 141 complet ed Site: Right Deltoid [facility] PNEUMOCOCCAL CONJUGATE PCV 13 2016 133 complet ed [place] FLU,3 YRS (HISTORICAL) 2015 88 complet ed Site: Left Deltoid [place] FLU,3 YRS (HISTORICAL) 2014 88 complet ed Site: Left Deltoid [place] FLU,3 YRS (HISTORICAL) 2013 88 complet ed Site: Left Deltoid [facility] PNEUMOCOCCAL, UNSPECIFIED FORMULATION 2013 109 complet ed [facility] FLU,3 YRS (HISTORICAL) 2012 88 complet ed Site: Left Deltoid [place] DTAP, UNSPECIFIED FORMULATION 2012 107 complet ed Site: Right Deltoid [place] ZOSTER (SHINGLES) (HISTORICAL) 2012 121 complet ed [place] FLU,3 YRS (HISTORICAL) 2011 88 complet ed Site: Right Deltoid [place] FLU,3 YRS (HISTORICAL) 2010 88 complet ed Site: Left Deltoid [facility] TD(ADULT) UNSPECIFIED FORMULATION 2010 139 complet ed [facility] FLU,3 YRS (HISTORICAL) 2009 88 complet ed Site: Left Deltoid [place] FLU,3 YRS (HISTORICAL) 2008 88 complet ed Site: Left Deltoid [place] PNEUMOCOCCAL, UNSPECIFIED FORMULATION 2008 109 complet ed [place] PNEUMOCOCCAL, UNSPECIFIED FORMULATION 2008 109 complet ed [facility] FLU,3 YRS (HISTORICAL) 2007 88 complet ed Site: Left Deltoid [place] FLU,3 YRS (HISTORICAL) 2006 88 complet ed Site: Left Deltoid [place] FLU VACCINE (HISTORICAL) 2004 88 complet ed [place] FLU,3 YRS (HISTORICAL) 2003 JASPER CRONIN 88 complet ed [place] FLU,3 YRS (HISTORICAL) 2002 JASPER [place] NN H 88 complet ed [place] FLU,3 YRS (HISTORICAL) 2001 88 complet ed [place] FLU,3 YRS (HISTORICAL) 2001 [facility] [place] [facility] 88 complet ed [place] FLU,3 YRS (HISTORICAL) 1999 BAHRALILOM,SA MARK ANTHONY PEREZ 88 complet ed [place] INFLUENZA, UNSPECIFIED FORMULATION 1997 ANALILIA SIDDIQUI 88 complet ed [place] INFLUENZA, UNSPECIFIED FORMULATION 1996 FRANCO CARVAJAL 88 complet ed [place] Results Combined list of recent chemistry, hematology and other laboratory results from Department of Defense and Veterans Affairs, ranging from 15 months to all on record, depending upon the facility. Order Name Results Value Reference Range Date Interpretation Specimen Comments Source VITAMIN D (25-OH) 25-HYDROXY VITAMIN D3+25-HYDR OXYVITAMIN D2 [MASS/VOLU ME] IN SERUM OR PLASMA 44 ng/mL 20 - 50 02/13 Specimen Type: SERUM No comment entered. Ordering Provider: MARISOL STINSON A Report Released Date/Time: Feb 13, 2025 01:44 PM Reporting Lab: [address] [address] Performing Lab: [address] [address] [place] LIPID PANEL, NON FASTING CHOLESTERO L [MASS/VOLU ME] IN SERUM OR PLASMA 106 mg/dL 02/13 Specimen Type: SERUM No comment entered. Ordering Provider: MARISOL STINSON A Report Released Date/Time: Feb 13, 2025 01:44 PM Reporting Lab: [address] [address] Performing Lab: [address] [address] [place] LIPID PANEL, NON FASTING TRIGLYCERI DE [MASS/VOLU ME] IN SERUM OR PLASMA 124 mg/dL 0 - 150 02/13 Specimen Type: SERUM No comment entered. Ordering Provider: MARISOL STINSON A Report Released Date/Time: Feb 13, 2025 01:44 PM Reporting Lab: [facility] [address] [address] Performing Lab: [facility] [address] [address] [place] LIPID PANEL, NON FASTING CHOLESTERO L IN LDL [MASS/VOLU ME] IN SERUM OR PLASMA BY CALCIVON Darnell 35 mg/dL 0 - 129 02/13 Specimen Type: SERUM No comment entered. Ordering Provider: MARISOL STINSON A Report Released Date/Time: Feb 13, 2025 01:44 PM Reporting [facility]: [facility] [address] [address] Performing Lab: [facility] [address] [address] [place] LIPID PANEL, NON FASTING CHOLESTERO L.TOTAL/CH OLESTEROL IN HDL [MASS RATIO] IN SERUM OR PLASMA 2.3 02/13 Specimen Type: SERUM No comment entered. Ordering Provider: MARISOL STINSON A Report Released Date/Time: Feb 13, 2025 01:44 PM Reporting [facility] [address] [address] Performing Lab: [facility] [address] [address] [place] LIPID PANEL, NON FASTING CHOLESTERO L IN HDL [MASS/VOLU ME] IN SERUM OR PLASMA 46 mg/dL 40 - 60 02/13 Specimen Type: SERUM No comment entered. Ordering Provider: MARISOL STINSON A Report Released Date/Time: Feb 13, 2025 01:44 PM Reporting Lab: [facility] [address] [address] Performing [facility]: [facility] [address] [address] [place] LIVER FUNCTION PROTEIN [MASS/VOLU ME] IN SERUM OR PLASMA 7.1 g/dL 6.0 - 8.3 02/13 Specimen Type: SERUM No comment entered. Ordering Provider: MARISOL STINSON Report Released Date/Time: Feb 13, 2025 01:44 PM Reporting [facility]: [facility] [address] [address] Performing Lab: [facility] [address] [address] [facility] LIVER FUNCTION ALBUMIN [MASS/VOLU ME] IN SERUM OR PLASMA BY BROMOCRESO L PURPLE (BCP) DYE BINDING METHOD 3.7 g/dL 3.5 - 5.0 02/13 Specimen Type: SERUM No comment entered. Ordering Provider: MARISOL STINSON A Report Released Date/Time: Feb 13, 2025 01:44 PM Reporting Lab: [address] [address] Performing [facility]: [facility] [address] [address] [facility] LIVER FUNCTION ALKALINE PHOSPHATAS E [ENZYMATIC ACTIVITY/V OLUME] IN SERUM OR PLASMA 123 U/L 40 - 150 02/13 Specimen Type: SERUM No comment entered. Ordering Provider: MARISOL STINSON A Report Released Date/Time: Feb 13, 2025 01:44 PM Reporting Lab: [address] [address] Performing [facility]: [facility] [address] [address] [facility] LIVER FUNCTION ASPARTATE AMINOTRANS FERASE [ENZYMATIC ACTIVITY/V OLUME] IN SERUM OR PLASMA BY WITH P-5'-P 17 U/L 5 - 34 02/13 Specimen Type: SERUM No comment entered. Ordering Provider: MARISOL STINSON A Report Released Date/Time: Feb 13, 2025 01:44 PM Reporting [facility]: [facility] [address] [address] Performing Lab: [facility] [address] [address] [place]IVER FUNCTION ALANINE AMINOTRANS FERASE [ENZYMATIC ACTIVITY/V OLUME] IN SERUM OR PLASMA BY WITH P-5'-P 28 U/L 02/13 Specimen Type: SERUM No comment entered. Ordering Provider: MARISOL STINSON A Report Released Date/Time: Feb 13, 2025 01:44 PM Reporting Lab: [address] [address] Performing Lab: [address] [address] [place]IVER FUNCTION BILIRUBIN. TOTAL [MASS/VOLU ME] IN SERUM OR PLASMA 0.5 mg/dL 0.2 - 1.2 02/13 Specimen Type: SERUM No comment entered. Ordering Provider: MARISOL STINSON A Report Released Date/Time: Feb 13, 2025 01:44 PM Reporting Lab: [address] [address] Performing [facility]: [facility] [address] [address] [place] MICROALB UMIN CREATINI NE RATIO PANEL MICROALBUM IN/CREATIN INE [MASS RATIO] IN URINE 54.1 mg/g 0 - 29.9 02/13 H Specimen Type: URINE No comment entered. Ordering Provider: MARISOL STINSON A Report Released Date/Time: Feb 13, 2025 01:44 PM Reporting [facility]: [facility] [address] [address] Performing Lab: [facility] [address] [address] [place] MICROALB UMIN CREATINI NE RATIO PANEL MICROALBUM IN [MASS/VOLU ME] IN URINE BY DETECTION LIMIT <= 1.0 MG/L 3.8 mg/dL 02/13 Specimen Type: URINE No comment entered. Ordering Provider: MARISOL STINSON A Report Released Date/Time: Feb 13, 2025 01:44 PM Reporting [facility]: [facility] [address] [address] [facility] [address] [facility] [address] [place] MICROALB UMIN CREATINI NE RATIO PANEL CREATININE [MASS/VOLU ME] IN URINE 70.21 mg/dL 02/13 Specimen Type: URINE No comment entered. Ordering Provider: MARISOL STINSON A Report Released Date/Time: Feb 13, 2025 01:44 PM Reporting Lab: [address] [address] Performing Lab: [address] [address] [place] BASIC METABOLI C PANEL (non-fas ting) UREA NITROGEN [MASS/VOLU ME] IN SERUM OR PLASMA 14 mg/dL 7 - 25 02/13 Specimen Type: SERUM No comment entered. Ordering Provider: MARISOL STINSON A Report Released Date/Time: Feb 13, 2025 01:44 PM Reporting [facility] [address] [address] Performing Lab: [facility] [address] [address] [place] BASIC METABOLI C PANEL (non-fas ting) GLUCOSE [MASS/VOLU ME] IN SERUM OR PLASMA 298 mg/dL 65 - 100 02/13 H Specimen Type: SERUM No comment entered. Ordering Provider: MARISOL STINSON A Report Released Date/Time: Feb 13, 2025 01:44 PM Reporting Lab: [facility] [address] [address] Performing Lab: [facility] [address] [address] [place] BASIC METABOLI C PANEL (non-fas ting) SODIUM [MOLES/VOL UME] IN SERUM OR PLASMA 136 mmol/L 135 - 145 02/13 Specimen Type: SERUM No comment entered. Ordering Provider: MARISOL STINSON A Report Released Date/Time: Feb 13, 2025 01:44 PM Reporting Lab: [facility] [facility] [address] Performing Lab: [facility] [address] [facility] [facility] [address] [place] BASIC METABOLI C PANEL (non-fas ting) POTASSIUM [MOLES/VOL UME] IN SERUM OR PLASMA 4.7 mmol/L 3.5 - 5.0 02/13 Specimen Type: SERUM No comment entered. Ordering Provider: MARISOL STINSON A Report Released Date/Time: Feb 13, 2025 01:44 PM Reporting Lab: [facility] [address] [address] Performing Lab: [address] [address] [place] BASIC METABOLI C PANEL (non-fas ting) CHLORIDE [MOLES/VOL UME] IN SERUM OR PLASMA 105 mmol/L 100 - 110 02/13 Specimen Type: SERUM No comment entered. Ordering Provider: MARISOL STINSON A Report Released Date/Time: Feb 13, 2025 01:44 PM Reporting Lab: [address] [address] Performing Lab: [address] [address] [place] BASIC METABOLI C PANEL (non-fas ting) CARBON DIOXIDE, TOTAL [MOLES/VOL UME] IN SERUM OR PLASMA 23 meq/L 20 - 30 02/13 Specimen Type: SERUM No comment entered. Ordering Provider: MARISOL STINSON A Report Released Date/Time: Feb 13, 2025 01:44 PM Reporting Lab: [address] [address] Performing Lab: [address] [address] [place] BASIC METABOLI C PANEL (non-fas ting) CALCIUM [MASS/VOLU ME] IN SERUM OR PLASMA 9.1 mg/dL 8.5 - 10.2 02/13 Specimen Type: SERUM No comment entered. Ordering Provider: MARISOL STINSON A Report Released Date/Time: Feb 13, 2025 01:44 PM Reporting Lab: [facility] [place] [address] [address] Performing Lab: [facility] [address] [address] [place] BASIC METABOLI C PANEL (non-fas ting) CREATININE [MASS/VOLU ME] IN SERUM OR PLASMA 0.70 mg/dL 0.50 - 1.40 02/13 Specimen Type: SERUM No comment entered. Ordering Provider: MARISOL STINSON A Report Released Date/Time: Feb 13, 2025 01:44 PM Reporting Lab: [facility] [address] [address] Performing Lab: [facility] [address] [address] [place] BASIC METABOLI C PANEL (non-fas ting) GLOMERULAR FILTRATION RATE/1.73 SQ M.PREDICTE D [VOLUME RATE/AREA] IN SERUM, PLASMA OR BLOOD BY CREATININE -BASED FORMULA (CKD-EPI 2020) >90mL/mi n 60 02/13 Specimen Type: SERUM No comment entered. Ordering Provider: MARISOL STINSON A Report Released Date/Time: Feb 13, 2025 01:44 PM Reporting Lab: [facility] [address] [address] Performing Lab: [facility] [address] [address] [place] TSH THYROTROPI N [UNITS/VOL UME] IN SERUM OR PLASMA BY DETECTION LIMIT <= 0.005 MIU/L 0.54 u[IU]/mL 0.35 - 5.00 02/13 Specimen Type: SERUM No comment entered. Ordering Provider: MARISOL STINSON A Report Released Date/Time: Feb 13, 2025 01:44 PM Reporting Lab: [facility] [address] Performing Lab: [facility] [address] [address] [place] HEMOGLOB IN A1C PANEL HEMOGLOBIN A1C/HEMOGL OBIN.TOTAL IN BLOOD BY [facility] PROTOCOL 6.8 4.0 - 5.6 02/13 H Specimen Type: BLOOD Comment: Values obtained from A1C measurement s can vary. For atypical A1C assays, a reported value of 7.0 could actually be between 6.72 and 7.28 if measured by a reference method. A reported value of 9.0 could actually be between 8.73 and 9.27. Ref: http://www. ngsp.org/[place] Pdata.asp Ordering Provider: MARISOL STINSON A Report Released Date/Time: Feb 13, 2025 01:44 PM Reporting Lab: [address] [address] Performing Lab: [address] [address] [place] CBC AND DIFF (AUTO) LEUKOCYTES [#/VOLUME] IN BLOOD BY AUTOMATED COUNT 8.54 10*3/uL 4.50 - 11.00 02/13 Specimen Type: BLOOD No comment entered. Ordering Provider: MARISOL STINSON A Report Released Date/Time: Feb 13, 2025 01:44 PM Reporting Lab: [address] [address] Performing Lab: [address] [address] [place] CBC AND DIFF (AUTO) ERYTHROCYT ES [#/VOLUME] IN BLOOD BY AUTOMATED COUNT 4.83 10*6/uL 4.23 - 5.66 02/13 Specimen Type: BLOOD No comment entered. Ordering Provider: MARISOL STINSON A Report Released Date/Time: Feb 13, 2025 01:44 PM Reporting Lab: [address] [address] Performing Lab: [address] [address] [place] CBC AND DIFF (AUTO) HEMOGLOBIN [MASS/VOLU ME] IN BLOOD 13.2 g/dL 12.8 - 17 02/13 Specimen Type: BLOOD No comment entered. Ordering Provider: MARISOL STINSON A Report Released Date/Time: Feb 13, 2025 01:44 PM Reporting Lab: [facility] [address] [address] Performing Lab: [facility] [address] [address] [place] CBC AND DIFF (AUTO) HEMATOCRIT [VOLUME FRACTION] OF BLOOD BY AUTOMATED COUNT 40.5 39.2 - 50.4 02/13 Specimen Type: BLOOD No comment entered. Ordering Provider: MARISOL STINSON A Report Released Date/Time: Feb 13, 2025 01:44 PM Reporting Lab: [facility] [address] [address] Performing Lab: [facility] [address] [address] [place] CBC AND DIFF (AUTO) MCV [ENTITIC VOLUME] BY AUTOMATED COUNT 83.9 fL 82 - 99 02/13 Specimen Type: BLOOD No comment entered. Ordering Provider: MARISOL STINSON A Report Released Date/Time: Feb 13, 2025 01:44 PM Reporting Lab: [address] [address] Performing Lab: [facility] [address] [address] [place] CBC AND DIFF (AUTO) MCHC [MASS/VOLU ME] BY AUTOMATED COUNT 32.6 g/dL 30.8 - 35.1 02/13 Specimen Type: BLOOD No comment entered. Ordering Provider: MARISOL STINSON A Report Released Date/Time: Feb 13, 2025 01:44 PM Reporting Lab: [facility] [address] [address] Performing Lab: [facility] [address] [address] [place] CBC AND DIFF (AUTO) PLATELETS [#/VOLUME] IN BLOOD BY AUTOMATED COUNT 314 10*3/uL 140 - 360 02/13 Specimen Type: BLOOD No comment entered. Ordering Provider: MARISOL STINSON A Report Released Date/Time: Feb 13, 2025 01:44 PM Reporting Lab: [facility] [address] [address] Performing Lab: [facility] [address] [address] [place] CBC AND DIFF (AUTO) PLATELET MEAN VOLUME [ENTITIC VOLUME] IN BLOOD BY AUTOMATED COUNT 10.7 fL 9.2 - 12.4 02/13 Specimen Type: BLOOD No comment entered. Ordering Provider: MARISOL STINSON A Report Released Date/Time: Feb 13, 2025 01:44 PM Reporting Lab: [address] [address] Performing Lab: [facility] [address] [address] [place] CBC AND DIFF (AUTO) ERYTHROCYT E DISTRIBUTI ON WIDTH [RATIO] BY AUTOMATED COUNT 14.9 12.0 - 16.0 02/13 Specimen Type: BLOOD No comment entered. Ordering Provider: MARISOL STINSON A Report Released Date/Time: Feb 13, 2025 01:44 PM Reporting Lab: [facility] [address] [address] Performing Lab: [facility] [address] [address] [place] CBC AND DIFF (AUTO) MONOCYTES [#/VOLUME] IN BLOOD BY AUTOMATED COUNT 0.48 10*3/uL 0.30 - 1.10 02/13 Specimen Type: BLOOD No comment entered. Ordering Provider: MARISOL STINSON A Report Released Date/Time: Feb 13, 2025 01:44 PM Reporting Lab: [facility] [address] [address] Performing Lab: [facility] [address] [address] [place] CBC AND DIFF (AUTO) MCH [ENTITIC MASS] BY AUTOMATED COUNT 27.3 pg 26.2 - 32.6 04/01 /2025 Specimen Type: BLOOD No comment entered. Ordering Provider: MARISOL STINSON A Report Released Date/Time: Feb 13, 2025 01:44 PM Reporting Lab: [facility] [address] [address] Performing Lab: [facility] [address] [address] [place] CBC AND DIFF (AUTO) NEUTROPHIL S/100 LEUKOCYTES IN BLOOD BY AUTOMATED COUNT 80.1 43.7 - 75.8 02/13 H Specimen Type: BLOOD No comment entered. Ordering Provider: MARISOL STINSON A Report Released Date/Time: Feb 13, 2025 01:44 PM Reporting Lab: [facility] [address] [address] Performing Lab: [facility]N [facility] [address] [place] CBC AND DIFF (AUTO) LYMPHOCYTE S/100 LEUKOCYTES IN BLOOD BY AUTOMATED COUNT 13.3 14.0 - 42.3 02/13 L Specimen Type: BLOOD No comment entered. Ordering Provider: MARISOL STINSON A Report Released Date/Time: Feb 13, 2025 01:44 PM Reporting Lab: [facility] [address] [address] Performing Lab: [facility] [address] [address] [place] CBC AND DIFF (AUTO) MONOCYTES/ 100 LEUKOCYTES IN BLOOD BY AUTOMATED COUNT 5.6 5.1 - 13.7 02/13 Specimen Type: BLOOD No comment entered. Ordering Provider: MARISOL STINSON A Report Released Date/Time: Feb 13, 2025 01:44 PM Reporting Lab: [facility] [address] [address] Performing Lab: [facility] [address] [address] [place] CBC AND DIFF (AUTO) EOSINOPHIL S/100 LEUKOCYTES IN BLOOD BY AUTOMATED COUNT 0.2 0.4 - 6.8 02/13 L Specimen Type: BLOOD No comment entered. Ordering Provider: MARISOL STINSON A Report Released Date/Time: Feb 13, 2025 01:44 PM Reporting Lab: [facility]TR[facility] [address] [address] Performing Lab: [facility] [address] [address] [place] CBC AND DIFF (AUTO) BASOPHILS/ 100 LEUKOCYTES IN BLOOD BY AUTOMATED COUNT 0.6 0.1 - 2.0 02/13 Specimen Type: BLOOD No comment entered. Ordering Provider: MARISOL STINSON A Report Released Date/Time: Feb 13, 2025 01:44 PM Reporting Lab: [facility] [address] [address] Performing Lab: [facility] [address] [address] [place] CBC AND DIFF (AUTO) NEUTROPHIL S [#/VOLUME] IN BLOOD BY AUTOMATED COUNT 6.83 10*3/uL 2.20 - 7.60 02/13 Specimen Type: BLOOD No comment entered. Ordering Provider: MARISOL STINSON A Report Released Date/Time: Feb 13, 2025 01:44 PM Reporting Lab: [facility] [address] [address] Performing Lab: [facility] [address] [address] [place] CBC AND DIFF (AUTO) LYMPHOCYTE S [#/VOLUME] IN BLOOD BY AUTOMATED COUNT 1.14 10*3/uL 1.00 - 3.20 02/13 Specimen Type: BLOOD No comment entered. Ordering Provider: MARISOL STINSON A Report Released Date/Time: Feb 13, 2025 01:44 PM Reporting Lab: [facility]TR[facility] [address] [address] Performing Lab: [facility] [address] [address] [place] CBC AND DIFF (AUTO) EOSINOPHIL S [#/VOLUME] IN BLOOD BY AUTOMATED COUNT 0.02 10*3/uL 0.03 - 0.44 02/13 L Specimen Type: BLOOD No comment entered. Ordering Provider: MARISOL STINSON A Report Released Date/Time: Feb 13, 2025 01:44 PM Reporting Lab: [facility] [address] [address] Performing Lab: [facility] [address] [address] [place] CBC AND DIFF (AUTO) BASOPHILS [#/VOLUME] IN BLOOD BY AUTOMATED COUNT 0.05 10*3/uL 0.01 - 0.13 02/13 Specimen Type: BLOOD No comment entered. Ordering Provider: MARISOL STINSON A Report Released Date/Time: Feb 13, 2025 01:44 PM Reporting Lab: [facility] [address] [address] Performing Lab: [facility] [address] [address] [place] CBC AND DIFF (AUTO) IMMATURE GRANULOCYT ES/100 LEUKOCYTES IN BLOOD BY AUTOMATED COUNT 0.2 0.0 - 0.7 02/13 Specimen Type: BLOOD No comment entered. Ordering Provider: MARISOL STINSON A Report Released Date/Time: Feb 13, 2025 01:44 PM Reporting Lab: [facility] [address] [address] Performing Lab: [facility] [address] [address] [place] CBC AND DIFF (AUTO) IMMATURE GRANULOCYT ES [#/VOLUME] IN BLOOD BY AUTOMATED COUNT 0.02 10*3/uL 0.00 - 0.06 02/13 Specimen Type: BLOOD No comment entered. Ordering Provider: MARISOL STINSON A Report Released Date/Time: Feb 13, 2025 01:44 PM Reporting Lab: [facility] [address] [address] Performing Lab: [facility] [address] [address] [place] CBC AND DIFF (AUTO) NUCLEATED ERYTHROCYT ES/100 LEUKOCYTES [RATIO] IN BLOOD BY AUTOMATED COUNT 0.0 0.0 - 0.0 02/13 Specimen Type: BLOOD No comment entered. Ordering Provider: MARISOL STINSON A Report Released Date/Time: Feb 13, 2025 01:44 PM Reporting Lab: [address] [address] Performing Lab: [address] [address] [place] CBC AND DIFF (AUTO) NUCLEATED ERYTHROCYT ES [#/VOLUME] IN BLOOD BY AUTOMATED COUNT 0.00 10*3/uL 0.00 - 0.00 02/13 Specimen Type: BLOOD No comment entered. Ordering Provider: MARISOL STINSON A Report Released Date/Time: Feb 13, 2025 01:44 PM Reporting Lab: [address] [address] Performing Lab: [address] [address] [place] LYME SEROLOGY PANEL BORRELIA BURGDORFER I AB.IGG AND IGM WITH REFLEX TO IMMUNOASSA Y PANEL - SERUM OR PLASMA Negative 09/14 Specimen Type: SERUM Comment: The LYME SEROLOGY PANEL was performed using the FDA-approve d Miguel [employer]ng[employer] Borrelia burdorferi modified two-tier test system. This modified methodology uses a second EIA in place of a western immunoblot assay, which the FDA has determined is substantia lly equivalent to or better than standard two-tier testing using western blot. Supplementa l testing with a second EIA meets CDC guidelines for Lyme disease testing. Performance characteris tics of the panel were validated at the [facility]. Results are considered positive only if the initial screening EIA is positive or equivocal, and either or both supplementa l EIAs (for IgM and IgG) are positive. Diagnosis of Lyme disease should not be based solely on laboratory results. Clinical and exposure history must be considered. Positive antibody results reflect prior immunologic exposure, and do not necessarily indicate active infection. False positive results are possible in patients with other spirochetal infections, infectious mononucleos is, and connective tissue disorders. Negative results do not exclude B. burgdorferi infection. Only 10-40% of patients with erythema migrans alone have detectable antibodies. False negative results are possible, if specimens are drawn too soon after infection before an antibody response. Antibody induction may be aborted by early antibiotic therapy. Results in immunosuppr essed individuals should be interpreted with caution. If Lyme disease is strongly suspected, but antibody was not detected, a second specimen collected about 2-4 weeks after the first should be tested. This test is NOT for use in screening individuals without signs, symptoms or exposure history. Physicians should report all cases of Lyme disease to their state and local health departments , if applicable. Ordering Provider: LELA MCDERMOTT Report Released Date/Time: Sep 14, 2024 01:22 PM Reporting Lab: [facility] [address] [address] Performing Lab: [facility] [address] [address] [facility] LYME SEROLOGY PANEL BORRELIA BURGDORFER I AB [INTERPRET ATION] IN SERUM BY IA.MTTT Negative 09/14 Specimen Type: SERUM Comment: The LYME SEROLOGY PANEL was performed using the FDA-approve d Miguel Ángel [employer] Borrelia burdorferi modified two-tier test system. This modified methodology uses a second EIA in place of a western immunoblot assay, which the FDA has determined is substantia lly equivalent to or better than standard two-tier testing using western blot. Supplementa l testing with a second EIA meets CDC guidelines for Lyme disease testing. Performance characteris tics of the panel were validated at the [facility]. Results are considered positive only if the initial screening EIA is positive or equivocal, and either or both supplementa l EIAs (for IgM and IgG) are positive. Diagnosis of Lyme disease should not be based solely on laboratory results. Clinical and exposure history must be considered. Positive antibody results reflect prior immunologic exposure, and do not necessarily indicate active infection. False positive results are possible in patients with other spirochetal infections, infectious mononucleos is, and connective tissue disorders. Negative results do not exclude B. burgdorferi infection. Only 10-40% of patients with erythema migrans alone have detectable antibodies. False negative results are possible, if specimens are drawn too soon after infection before an antibody response. Antibody induction may be aborted by early antibiotic therapy. Results in immunosuppr essed individuals should be interpreted with caution. If Lyme disease is strongly suspected, but antibody was not detected, a second specimen collected about 2-4 weeks after the first should be tested. This test is NOT for use in screening individuals without signs, symptoms or exposure history. Physicians should report all cases of Lyme disease to their state and local health departments , if applicable. Ordering Provider: LELA MCDERMOTT Report Released Date/Time: Sep 14, 2024 01:22 PM Reporting Lab: [facility] [place] [address] [address] Performing Lab: [facility] [place] [address] [address] [place] [facility] [place] [facility] CBC AND DIFF (AUTO) LEUKOCYTES [#/VOLUME] IN BLOOD BY AUTOMATED COUNT 5.55 10*3/uL 4.50 - 11.00 09/14 Specimen Type: BLOOD No comment entered. Ordering Provider: LELA MCDERMOTT Report Released Date/Time: Sep 14, 2024 01:22 PM Reporting Lab: [facility] [place] [facility] [address] [address] Performing Lab: [facility] [place] [facility] [address] [facility] [address] [place] [facility] [place] [facility] CBC AND DIFF (AUTO) ERYTHROCYT ES [#/VOLUME] IN BLOOD BY AUTOMATED COUNT 4.50 10*6/uL 4.23 - 5.66 09/14 Specimen Type: BLOOD No comment entered. Ordering Provider: LELA MCDERMOTT Report Released Date/Time: Sep 14, 2024 01:22 PM Reporting Lab: [facility] [place] [facility] [address] [facility] [address] Performing Lab: [facility] [place] [address] [address] [place] [facility] [place] [facility] CBC AND DIFF (AUTO) HEMOGLOBIN [MASS/VOLU ME] IN BLOOD 13.2 g/dL 12.8 - 17 09/14 Specimen Type: BLOOD No comment entered. Ordering Provider: LELA MCDERMOTT Report Released Date/Time: Sep 14, 2024 01:22 PM Reporting Lab: [facility] [place] [facility] [address] [facility] [address] Performing Lab: [facility] [place] [facility] [address] [facility] [address] [place] [facility] [facility] CBC AND DIFF (AUTO) HEMATOCRIT [VOLUME FRACTION] OF BLOOD BY AUTOMATED COUNT 38.4 39.2 - 50.4 09/14 L Specimen Type: BLOOD No comment entered. Ordering Provider: LELA MCDERMOTT Report Released Date/Time: Sep 14, 2024 01:22 PM Reporting Lab: [facility] [place] [facility] [address] [facility] [address] Performing Lab: [facility] [place] [facility] [address] [facility] [address] [place] [facility] [facility] CBC AND DIFF (AUTO) MCV [ENTITIC VOLUME] BY AUTOMATED COUNT 85.3 fL 82 - 99 09/14 Specimen Type: BLOOD No comment entered. Ordering Provider: LELA MCDERMOTT Report Released Date/Time: Sep 14, 2024 01:22 PM Reporting Lab: [facility] [place] [facility] [address] [facility] [address] Performing Lab: [facility] [facility] [place] [facility] [address] [address] [facility] [place] [facility] CBC AND DIFF (AUTO) MCHC [MASS/VOLU ME] BY AUTOMATED COUNT 34.4 g/dL 30.8 - 35.1 09/14 Specimen Type: BLOOD No comment entered. Ordering Provider: LELA MCDERMOTT Report Released Date/Time: Sep 14, 2024 01:22 PM Reporting Lab: [facility] [place] [facility] [address] [facility] [facility] [address] Performing Lab: [facility] [facility] [place] [facility] [address] [facility] [address] [place] [facility] [facility] CBC AND DIFF (AUTO) PLATELETS [#/VOLUME] IN BLOOD BY AUTOMATED COUNT 238 10*3/uL 140 - 360 09/14 Specimen Type: BLOOD No comment entered. Ordering Provider: LELA MCDERMOTT Report Released Date/Time: Sep 14, 2024 01:22 PM Reporting Lab: [facility] [place] [facility] [address] [facility] [facility] [address] Performing Lab: [facility] [place] [facility] [address] [facility] [address] [facility] [place] [facility] CBC AND DIFF (AUTO) ERYTHROCYT E DISTRIBUTI ON WIDTH [RATIO] BY AUTOMATED COUNT 13.3 12.0 - 16.0 09/14 Specimen Type: BLOOD No comment entered. Ordering Provider: LELA MCDERMOTT Report Released Date/Time: Sep 14, 2024 01:22 PM Reporting Lab: [facility] [place] [facility] [address] [facility] [address] Performing Lab: [facility] [place] [facility] [address] [facility] [address] [place] [facility] [facility] CBC AND DIFF (AUTO) MONOCYTES [#/VOLUME] IN BLOOD BY AUTOMATED COUNT 0.34 10*3/uL 0.30 - 1.10 09/14 Specimen Type: BLOOD No comment entered. Ordering Provider: LELA MCDERMOTT Report Released Date/Time: Sep 14, 2024 01:22 PM Reporting Lab: [facility] [place] [facility] [address] [facility] [facility] [address] Performing Lab: [facility] [place] [facility] [address] [facility] [address] [facility] [place] [facility] CBC AND DIFF (AUTO) MCH [ENTITIC MASS] BY AUTOMATED COUNT 29.3 pg 26.2 - 32.6 09/14 Specimen Type: BLOOD No comment entered. Ordering Provider: LELA MCDERMOTT Report Released Date/Time: Sep 14, 2024 01:22 PM Reporting Lab: [facility] [place] [facility] [address] [facility] [facility] [address] Performing Lab: [facility] [place] [facility] [address] [facility] [address] [facility] CBC AND DIFF (AUTO) NEUTROPHIL S/100 LEUKOCYTES IN BLOOD BY AUTOMATED COUNT 80.3 43.7 - 75.8 09/14 H Specimen Type: BLOOD No comment entered. Ordering Provider: LELA MCDERMOTT Report Released Date/Time: Sep 14, 2024 01:22 PM Reporting Lab: [facility] [place] [facility] [address] [facility] [facility] [address] Performing Lab: [facility] [place] [address] [address] [facility] [place] [facility] CBC AND DIFF (AUTO) LYMPHOCYTE S/100 LEUKOCYTES IN BLOOD BY AUTOMATED COUNT 12.6 14.0 - 42.3 09/14 L Specimen Type: BLOOD No comment entered. Ordering Provider: LELA MCDERMOTT Report Released Date/Time: Sep 14, 2024 01:22 PM Reporting Lab: [facility] [place] [address] [address] Performing Lab: [facility] [place] [address] [address] [facility] [place] [facility] CBC AND DIFF (AUTO) MONOCYTES/ 100 LEUKOCYTES IN BLOOD BY AUTOMATED COUNT 6.1 5.1 - 13.7 09/14 Specimen Type: BLOOD No comment entered. Ordering Provider: LELA MCDERMOTT Report Released Date/Time: Sep 14, 2024 01:22 PM Reporting Lab: [facility] [place] [address] [address] Performing Lab: [facility] [place] [address] [address] [facility] [place] [facility] CBC AND DIFF (AUTO) EOSINOPHIL S/100 LEUKOCYTES IN BLOOD BY AUTOMATED COUNT 0.2 0.4 - 6.8 09/14 L Specimen Type: BLOOD No comment entered. Ordering Provider: LELA MCDERMOTT Report Released Date/Time: Sep 14, 2024 01:22 PM Reporting Lab: [facility] [place] [address] [address] Performing Lab: [facility] [place] [facility] [address] [facility] [id number] [facility] [place] [facility] CBC AND DIFF (AUTO) BASOPHILS/ 100 LEUKOCYTES IN BLOOD BY AUTOMATED COUNT 0.4 0.1 - 2.0 09/14 Specimen Type: BLOOD No comment entered. Ordering Provider: LELA MCDERMOTT Report Released Date/Time: Sep 14, 2024 01:22 PM Reporting Lab: [facility] [place] [facility] [address] [facility] [id number] Performing Lab: [facility] [place] [facility] [address] [facility] [address] [facility] CBC AND DIFF (AUTO) NEUTROPHIL S [#/VOLUME] IN BLOOD BY AUTOMATED COUNT 4.46 10*3/uL 2.20 - 7.60 09/14 Specimen Type: BLOOD No comment entered. Ordering Provider: LELA MCDERMOTT Report Released Date/Time: Sep 14, 2024 01:22 PM Reporting Lab: [facility] [place] [facility] [address] [facility] [address] Performing Lab: [facility] [place] [facility] [address] [facility] [address] [facility] CBC AND DIFF (AUTO) LYMPHOCYTE S [#/VOLUME] IN BLOOD BY AUTOMATED COUNT 0.70 10*3/uL 1.00 - 3.20 09/14 L Specimen Type: BLOOD No comment entered. Ordering Provider: LELA MCDERMOTT Report Released Date/Time: Sep 14, 2024 01:22 PM Reporting Lab: [facility] [place] [facility] [address] [facility] [address] Performing Lab: [facility] [place] [address] [address] [facility] [place] CBC AND DIFF (AUTO) EOSINOPHIL S [#/VOLUME] IN BLOOD BY AUTOMATED COUNT 0.01 10*3/uL 0.03 - 0.44 09/14 L Specimen Type: BLOOD No comment entered. Ordering Provider: LELA MCDERMOTT Report Released Date/Time: Sep 14, 2024 01:22 PM Reporting Lab: [facility] [address] [facility] [address] Performing Lab: [facility] [address] [facility] [address] [facility] CBC AND DIFF (AUTO) BASOPHILS [#/VOLUME] IN BLOOD BY AUTOMATED COUNT 0.02 10*3/uL 0.01 - 0.13 09/14 Specimen Type: BLOOD No comment entered. Ordering Provider: LELA MCDERMOTT Report Released Date/Time: Sep 14, 2024 01:22 PM Reporting Lab: [facility] [address] [facility] [address] Performing Lab: [facility] [place] [address] [facility] [address] [facility] CBC AND DIFF (AUTO) IMMATURE GRANULOCYT ES/100 LEUKOCYTES IN BLOOD BY AUTOMATED COUNT 0.4 0.0 - 0.7 09/14 Specimen Type: BLOOD No comment entered. Ordering Provider: LELA MCDERMOTT Report Released Date/Time: Sep 14, 2024 01:22 PM Reporting Lab: [facility] [address] [facility] [address] Performing Lab: [facility] [address] [place] [address] [facility] CBC AND DIFF (AUTO) IMMATURE GRANULOCYT ES [#/VOLUME] IN BLOOD 0.02 10*3/uL 0.00 - 0.06 09/14 Specimen Type: BLOOD No comment entered. Ordering Provider: LELA MCDERMOTT Report Released Date/Time: Sep 14, 2024 01:22 PM Reporting Lab: [facility] [address] [facility] [address] Performing Lab: [facility] [address] [place] [address] [facility] CBC AND DIFF (AUTO) NRBC % 0.0 0.0 - 0.0 09/14 Specimen Type: BLOOD No comment entered. Ordering Provider: LELA MCDERMOTT Report Released Date/Time: Sep 14, 2024 01:22 PM Reporting Lab: [facility] [address] [facility] [address] Performing Lab: [facility] [address] [facility] [address] [facility] CBC AND DIFF (AUTO) NRBC, ABS 0.00 10*3/uL 0.00 - 0.00 09/14 Specimen Type: BLOOD No comment entered. Ordering Provider: LELA MCDERMOTT Report Released Date/Time: Sep 14, 2024 01:22 PM Reporting Lab: [facility] [address] [facility] [address] Performing Lab: [facility] [address] [facility] [address] [facility] Vital Signs Combined list of inpatient and outpatient Vital Signs from Department of Defense and Veterans Affairs, ranging from 12 months to all on record, depending upon the facility. Vital Sign Value Date Comments Source SYSTOLIC BLOOD PRESSURE 129 07/12/20 25 11:25:08 [facility] DIASTOLIC BLOOD PRESSURE 77 025 11:25:08 [facility] PULSE OXIMETRY 98 % 07/12/2025 11:25:08 [facility] WEIGHT 183.8 07/12/2025 11:25:08 [facility] BMI 28 kg/m2 07/12/2025 11:25:08 [facility] TEMPERATURE 98.7 07/12/2025 11:25:08 [facility] PULSE 88 07/12/2025 11:25:08 [facility] SYSTOLIC BLOOD PRESSURE 136 02/14/20 25 13:03:37 [place] DIASTOLIC BLOOD PRESSURE 69 025 13:03:37 [place] PULSE OXIMETRY 98 02/13/2025 13:03:37 [place] WEIGHT 181 02/13/2025 13:03:37 [place] BMI 28 kg/m2 02/13/2025 13:03:37 [place] HEIGHT 68 02/13/2025 13:03:37 [place] TEMPERATURE 97.6 02/13/2025 13:03:37 [place] PULSE 89 02/13/2025 13:03:37 [place] RESPIRATION 19 02/13/2025 13:03:37 [place] SYSTOLIC BLOOD PRESSURE 130 09/14/20 24 13:18:59 [facility] DIASTOLIC BLOOD PRESSURE 74 024 13:18:59 [facility] PULSE OXIMETRY 97 09/14/2024 13:18:59 [facility] WEIGHT 200.2 09/14/2024 13:18:59 [facility] BMI 29 kg/m2 09/14/2024 13:18:59 [facility] PAIN 0 09/14/2024 13:18:59 [facility] TEMPERATURE 97.9 09/14/2024 13:18:59 [facility] PULSE 67 09/14/2024 13:18:59 [facility] RESPIRATION 18 09/14/2024 13:18:59 [facility] Encounters Combined list of: 1) Encounters from Department of Veterans Affairs facilities going backup to the last 18 months, not all VA inpatient encounters are included; 2) Encounters from the Department of Defense facilities going backup to 280 months. 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 MELIDA MINER 03/03 [facility] IETREVON LESTER OFF/OP EST MAY X REQ PHY/QHP [id number] Diagnos is: ICD-10- CM Z23 Encount er for immuniz JOSÉ MIGUEL Karimi 03/06 [facility] [facility] Out[facility] Encounter [id number] 03/20 [facility] En[facility] [id number] 03/21 [facility] En[facility] [id number] 04/13 [facility] OFFICE O/P EST LOW 20 MIN [id number] Diagnos is: ICD-10- CM I10 Essenti al (primar y) hyperte nsion ADDISON,VICT ORIA J 04/19 [facility] [place] [facility] Encounter [id number] 05/22 [facility] En[facility] [id number] 05/23 [facility] En[facility] [id number] 05/23 [facility] En[facility] [id number] 05/25 [facility] [id number] 06/13 [facility] En[facility] [id number] 06/19 [facility] Outpatient Encounter [id number] 1.06/19 [facility] OFFICE O/P EST MOD 30 MIN [id number] Diagnos is: ICD-10- CM L60.3 Nail dystrop hy ANTHONY,YOANNA ES F 06/20 [facility] LOW [facility] MIN [id number] Diagnos is: ICD-10- CM F32.A Depress ion, unspeci CAITLIN Delgado OY F 06/20 [facility] [place] [facility] Outpatient Encounter [id number] 1.07/11 [facility] Outpatient Encounter [id number] 07/13 [facility] Outpatient Encounter [id number] 1.08/06 [facility] ADMN SARSCOV2 VACC 1 DOSE [id number] Diagnos is: ICD-10- CM Z23 Encount er for immuniz atRICK Bhat 08/30 [place] [facility] Outpatient Encounter [id number] [facility] OFF/OP EST MAY X REQ PHY/QHP [id number] 1. 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 Diagnos is: ICD-10- CM S30.861 A Insect bite (nonven omous) of abdomin al wall, init encntr JANET MCDERMOTT 09/14 [facility] En[facility] [id number] 09/26 [facility] En[facility] [id number] 09/28 [facility] [place] Outpatient Encounter [id number] 10/17 [place] [facility] Encounter [id number] [facility] En[facility] [id number] [facility] En[facility] [id number] 11/02 [facility] En[facility] [id number] 11/06 [facility] En[facility] [id number] 11/09 [facility] En[facility] [id number] 11/09 [facility] En[facility] [id number] 11[facility]13 [facility] En[facility] [id number] [facility] [id number] 11/17 [facility] En[facility] [id number] 11/17 [facility] En[facility] [id number] 11/21 [facility] En[facility] [id number] 11/29 [facility] En[facility] [id number] 11/30 [facility] Encounter [id number] 11/30 [facility] En[facility] [id number] 12/05 [facility] En[facility] [id number] 12/06 [facility] En[facility] [id number] 12/08 [facility] Encounter [id number] 12/11 [facility] En[facility] [id number] 12/13 [facility] En[facility] [id number] 12/15 [facility] [id number] 12/15 [facility] En[facility] [id number] 12/18 [facility] En[facility] [id number] [facility] Encounter [id number] [facility] Encounter [id number] [facility] En[facility] [id number] 01/05 [facility] En[facility] [id number] 01/09 [facility] En[facility] [id number] 01/12 [facility] [id number] 01/15 [facility] En[facility] [id number] [facility] INTRAORAL PERIAPICAL FIRST [id number] Diagnos is: ICD-10- CM K03.6 Deposit s [accret ions] on teeth MITUL DAVILA 01/17 [facility] OFFICE O/P EST MOD 30 MIN [id number] Diagnos is: ICD-10- CM 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 JACOBO WOMACK 01/25 [facility] En[facility] [id number] [facility] En[facility] [id number] 02/05 [facility] Encounter [id number] 02/13 [facility] OFFICE O/P EST MOD 30 MIN [id number] Diagnos is: ICD-10- CM E11.9 Type 2 diabete s mellitu s without complic ations ERICKA STINSOND A 02/13 [place] [facility] Out[facility] Encounter [id number] 02/13 [facility] En[facility] [id number] 02/20 [facility] OFFICE O/P EST MOD 30 MIN [id number] Diagnos is: ICD-10- CM L40.0 Psorias is vulgari s JACOBO WOMACK 02/22 [facility] En[facility] [id number] 02/28 [facility] OFFICE O/P EST MOD 30 MIN [id number] Diagnos is: ICD-10- CM E11.9 Type 2 diabete s mellitu s without complic ations MARLYN GOLDSMITH 03/02 [facility] En[facility] [id number] 03/06 [facility] En[facility] [id number] 03/14 [facility] Encounter [id number] 03/16 [facility] OFFICE O/P EST LOW 20 MIN [id number] Diagnos is: ICD-10- CM L60.3 Nail dystrop hy ROSS,CHARL ES F 03/16 [place] [facility] Out[facility] Encounter [id number] [facility] Encounter [id number] 03/16 [facility] Encounter [id number] [facility] [place]IOD[place] [id number] Diagnos is: ICD-10- CM K03.81 Cracked tooth MITUL DAVILA 04/03 [facility] Encounter [id number] [facility] Out[facility] Encounter [id number] [facility] Out[facility] Encounter [id number] [facility] [place] OFFICE O/P EST LOW 20 MIN [id number] Diagnos is: ICD-10- CM F31.70 Bipolar disord, current ly in remis, most recent episode unsCAITLIN Bailey OY F 04/17 [place] [facility] Out[facility] Encounter [id number] [facility] Encounter [id number] [facility] Out[facility] Encounter [id number] 04/30 [facility] DIABETIC CUSTOM MOLDED SHOE [id number] Diagnos is: ICD-10- CM E11.51 Type 2 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 MELIDA MINER E Conner 05/01 [place] [facility] Out[facility] Encounter [id number] 06/12 [facility] Outpatient Encounter [id number] 06/12 [facility] Out[facility]counter [id number] 06/13 [facility] Encounter [id number] 06/18 [facility] Out[facility] Encounter [id number] 06/18 [facility] Out[facility] Encounter [id number] 06/26 [facility] Out[facility] Encounter [id number] 07/03 [facility] Out[facility]counter [id number] 07/11 [facility] Out[facility] Encounter [id number] 07/12 [facility] OFFICE O/P EST HI 40 MIN [id number] Diagnos is: ICD-10- CM E11.9 Type 2 diabete s mellitu s without complic ations MARCHMAGGIE 07/12 [facility] [place] Social History Combined list of available smoking, tobacco, and other social history from Department of Defense and Veterans Affairs facilities. Social History Type Response Date Comment Source Tobacco smoking status [facility] VA-TOBACCO NEVER USED CIGARETTES [facility] History of tobacco use [place]CO FORMER USER 08/13/2023 [facility] History of tobacco use [place]-TOBACCO QUIT 15 YRS OR MORE 06/25/2022 [place] History of tobacco use [place]-TOBACCO FORMER USER 05/09/2021 [place] History of tobacco use [place]-TOBACCO QUIT 15 YRS OR MORE 05/23/2020 [place] History of tobacco use [place]-TOBACCO QUIT 15 YRS OR MORE 08/04/2018 [place] History of tobacco use QUIT TOBACCO USE > 7 YEARS AGO 12/21/2017 [place] History of tobacco use QUIT TOBACCO USE > 7 YEARS AGO 01/13/2017 [place] History of tobacco use QUIT TOBACCO USE > 7 YEARS AGO 01/21/2016 [place] History of tobacco use HISTORY OF SMOKING 06/30/2005 [place] History of tobacco use HISTORY OF SMOKING 04/16/2004 stopped tobacco 30 years ago [place] History of tobacco use QUIT TOBACCO USE > 7 YEARS AGO 10/15/2003 [place] History of tobacco use QUIT TOBACCO USE > 7 YEARS AGO 09/12/2003 [place] History of tobacco use HISTORY OF SMOKING 11/21/2002 stopped tobacco 28 years ago [place] History of tobacco use HISTORY OF SMOKING 08/18/2001 QAUIT 25 YEARS AGO [place] Plan of Care List of future care activities from Department of [facility] Affairs facilities. Additional future care activities may be listed in the Assessment and Plan section. Date/Time Care Activity Care Activity Detail Facili ty 07/12/2025 AMBULATORY - MEDICINE AMBULATORY - MEDICI NE [facility]
--- NOTE | 2025-07-12 13:53 | CA_ITS ---
Transthoracic Echocardiogram Patient (Last, First, Middle): Bernardino Rucker P Gender: Male Date of : 1945 Age: 79 Procedure Date: 07/12/2025 Procedure Type: Transthoracic Echocardiogram Location: OP Height: 175.26 cm Weight: 83.01 kg BSA: 1.99 m2 Heart Rate: 81 bpm BP: 128 / 65 mmHg Loft Patternmaker: LAURA Referring MD: Herson Ledesma MD Symptoms: R06.02 - Shortness of breath Study Quality: Adequate ECG Rhythm: Sinus Conclusions: - The visually estimated ejection fraction is between 55-60%. There is no evidence of regional wall motion abnormalities. - There is mild aortic valve stenosis. Findings Left Ventricle Normal left ventricular cavity size. The left ventricular systolic function is normal. The visually estimated ejection fraction is between 55-60%. There is no evidence of regional wall motion abnormalities. There is paradoxical septal motion consistent with a left bundle branch block. Diastolic function is normal for age. There is moderate septal and moderate basal asymmetric hypertrophy. Right Ventricle Normal right ventricular cavity size. There is low normal right ventricular systolic function. Atria Both atria are normal in size. Aortic Valve There is moderate calcification of the aortic valve. There is mild aortic valve stenosis. There is mild aortic valve regurgitation. Mitral Valve The mitral valve appears normal. There is no mitral valve regurgitation. There is no mitral valve stenosis. Pulmonic Valve The pulmonic valve is likely normal. Tricuspid Valve There is no tricuspid valve regurgitation. Tricuspid regurgitation envelope is inadequate for calculation of right ventricular systolic pressure. Great Vessels The asc aorta and aortic arch are normal in size. Venous The inferior vena cava is normal in size and collapses greater than 50% with inspiration. Pericardium/Pleural There is no evidence of pericardial effusion. Prior Study Comparison No prior study available for comparison. Measurements 2D Linear Measurements IVSd: 1.31 0.6-0.9/0.6-1.0 cm LVIDd: 3.11 3.9-5.3/4.2-5.9 cm LVIDd Index: 1.56 2.4-3.2/2.2-3.1 cm/m2 LVIDs: 2.02 2.0-3.6 cm LVPWd: 1.01 0.7-1.1 cm LA Diam: 2.90 2.7-3.8/3.0-4.0 cm LAIDs Index: 1.46 1.5-2.3 cm/m2 LV Mass: 135.22 67-162/88-224 g LV Mass Index: 67.95 43-95/49-115 g/m2 LVOT Diam: 2.10 3.0+(-)1.3 cm 2D Systolic Function EF 4C: 52.90 >55% EF 2C: 64.90 >55% EF BiP: 61.70 >55% Mitral Valve MV Pk E: 0.91 MV PK A: 0.55 MV Decel Time: 148.00 E/A: 1.70 E'Lateral: 8.59 E'Medial: 5.11 E/E' Med: 17.80 E/E' Lat: 10.60 PHT: 43.00 MVA PHT: 5.12 Decel Ballard: 5.92 Aortic Valve AoV Pk Cezar: 2.53 AoV Mn Cezar: 1.92 AoV VTI: 0.53 AoV Pk Grad: 26.00 Aov Mn Grad: 16.00 ODALIS Cont.VTI: 1.98 AI Pk Cezar: 3.76 AI Ballard: 1.82 LVOT LVOT Pk Cezar: 1.44 LVOT Mn Cezar: 1.11 LVOT VTI: 0.30 LVOT Pk Grad: 8.00 LVOT Mn Grad: 6.00 LVOT Diam: 2.10 LVOT Area: 3.46 Diastolic Function MV Pk E: 0.91 MV Pk A: 0.55 E/A: 1.70 E'Medial: 5.11 E/E' Med: 17.80 E' Laterial: 8.59 E/E' Lat: 10.60 Right Ventricle TAPSE (mm): 21.90 TVS' Cezar: 9.57 Great Vessels Aorta Sinus of Valsalva: 3.60 2.0-3.5 cm Ao Asc: 3.90 2.1-3.4 cm Ao Arch: 3.20 Pulmonary Valve PV Pk Cezar: 0.95 Peak PV Grad: 4.00 Updated in Other Vendor System with Status of Final uAgie Hutchins MD electronically signed on 07/14/2025 10:37:50 AM with status of Final
--- OUTSIDE RECORDS SUMMARY | 2025-07-12 14:39 | XMS_ITS | Clinical Summary ---
Author Organization [facility] Address [address] [address] Phone Care Team Providers Care Kiln Maintenance Name Role Phone Pcp, Unknown Primary Care [...] Active ferrous sulfate 325 mg (65 mg [place] iron) EC tablet Take 325 mg by [...] ecorded Are you denied basic needs s [facility] as food, clothing, or medical care? No 12/15/2024 In the past 12 months have y ou been in a relationship with a person who hurts, threatens, or tries to control you? No 12/15/2024 Are you denied basic needs s [facility] as food, clothing, or medical [...] EST) SODIUM 130(L) 133 - 146 mmol/L [facility] CHLORIDE 94(L) 96 - 108 mmol/L [facility] POTASSIUM 3.9 3.3 - 5.1 mmol/L [facility] CO2 26 21 - 35 mmol/L [facility] BUN 8 6 - 19 mg/dL [facility] CREATININE 0.40(L) 0.5 - 1.5 mg/dL [facility] GLUCOSE 381(H) 70 - 99 mg/dL [facility] CALCIUM 8.6 8.4 - 10.3 mg/dL [facility] EGFR 110 >59 mL/min/1.7 3m2 [facility] Comment:Estimated glomerular filtration rate calculated using the CKD-EPI refit equation. ANION GAP 14 10 - 20 mmol/L [facility] Blood 12/15/2024 3:10 PM EST 12/15/2024 3:15 PM EST us Johnny Stout MD LAB BLOOD ORDERABLES Melody alvarenga Result [facility] [address] [place] [address] from Last 3 Months or Most Recently Relevant to Health Maintenance Insurance [place] P[place] BLUE REPLACEMENT [facility] [place] MED[place] BLUE RE[place]ACEMENT Member Subscriber Plan / Payer (Ef fective 2009-Present) Name:Anna Marie Ruckerdon Relation to Subscriber:Self Name:Anna Marie Ruckerdon Payer ID:[id number] (NAIC) Type:Medicare Address: [facility] [id number] [place] MED[place] PPO BLUE REPLACEMENT Member Subscriber Plan / Payer (Ef fective 2009-Present) Name:Anna Marie Ruckerdon Relation to Subscriber:Self Name:Anna Marie Ruckerdon Payer ID:[id number] (NAIC) Type:Medicare Address: [facility] [id number] [place] [address] MEDICARE PPO BLUE REPLACEMENT [place] [address] [place] MED[place]PO BLUE REPLACEMENT [place] MED[place] BLUE REPLACEMENT [facility] [place] MED[place]ARE PPO BLUE REPLACEMENT [place] [address] [place] PPO BLUE REPLACEMENT [facility] [place] MED[place] PPO BLUE REPLACEMENT [facility] Care Teams Kiln Maintenance Relationship Specialty Start Date End Date Pcp, Unknown PCP - General 12/18/24 Additional Source Comments The information contained in this document represents components of the legal health record. It is not the complete legal health record.[facility]
--- OUTSIDE RECORDS SUMMARY | 2025-07-12 14:39 | XMS_ITS | Encounter Summary ---
Author Name [facility] [place] [facility] [facility] [place] Address [address] [place] [address] Care Team Providers Care Cisco Engineer Name Role Phone MARCH CHRIS Primary Care Provider Unavailabl e Insurance [...] Name Patient's Relationship to Policy Multani ERIC [facility] (WNR) MEDICARE (M) [facility] (WNR) Nov 15, 2016 [id number] ADRIENNE PUENTES ON PATIENT [facility] (WNR) MEDICARE ADVANTAGE [place] PPOD VALUE DB DS Nov 15, 2017 [id number] ADRIENNE PUENTES ON PATIENT Selected Encounter This section includes the information on record at [place] for the Encounter. Date/Time Encounter Type Encounter Description Reason Pro vider Source IHE Encounter Template Text not used by [facility]
--- OUTSIDE RECORDS SUMMARY | 2025-07-12 14:40 | XMS_ITS | Encounter Summary ---
Author Name [facility] [place] [facility] [place] [facility] [place] Address [address] [place] [address] Care Team Providers Care Benefits Specialist Name Role Phone MARCH CHRIS Primary Care [...] Name Patient's Relationship to Policy Multani ERIC [facility] (WNR) MEDICARE (M) [facility] (WNR) Nov 15, 2016 [id number] [phone] ADRIENNE PUENTES ON PATIENT [facility] (WNR) MEDICARE ADVANTAGE [place] PPOD VALUE DB DS Nov 15, 2017 [id number] [phone] ADRIENNE PUENTES ON PATIENT Selected Encounter This section includes the information on [place] at [place] for the Encounter. Date/Time Encounter Type Encounter Description Reason Pro vider Source IHE Encounter Template Text not used by [facility]
--- OUTSIDE RECORDS SUMMARY | 2025-07-12 14:40 | XMS_ITS | Patient Health Record ---
Author Organization [facility] Address [address] [place] [address] Care Team Providers Care Service Cleaner Name Role Phone Juan Padilla Unavailable [phone] Reason For Referral No Information Plan Of Treatment No Information
== END ==
LOC: HO.CARD 13:50
PROVIDERS: Visit Provider Internal Medicine Cardiovascular Disease
DX: R06.02 Shortness of breath (principal); R00.2 Palpitations
CPT/HCPCS: 93246; 93306

== ENCOUNTER → 2025-07-12 13:53 | Outpatient (BNV) | payer OTHER, SELFPAY | PROVIDERS: Visit Provider Internal Medicine | DX: R06.02 Shortness of breath (principal) | CPT/HCPCS: 93306 ==

== ENCOUNTER → 2025-07-27 09:49 | Outpatient (REF) | payer OTHER, SELFPAY ==
--- OUTSIDE RECORDS SUMMARY | 2011-03-19 | XMS_ITS | Encounter Summary ---
Author Organization [facility] Address [address] [facility] [address] [place] [phone] Phone Care Team Providers Care Rigging Worker Name Role Phone Unavailable Primary Care Provider Unavailabl e Reason for Visit * Auth/Cert (Routine) Specialty Diagnoses / Procedures Referred By Swapnil t Referred To Contact Referral ID Status Reason Start Date Expiration Date Visits Re quested Visits Authorized [id number] 1 1 Encounter Details Date Type Department Care Team (Late st Contact Info) Description 03/19/2011 Hospital Encounter [facility],Outside Imaging [address] [place] [address] Unknown, Unknown, MD Social History Tobacco Use [...] 12/15/2024 1:39 PM Sofia Garvey RN * [place] Suicide Severity Rating Scale (Screener/Recent Self-Report) Question Answer Date of Assessment Author 1. Wish to be (Past 1 Month) No 12/15/2024 1:39 PM Sfoia Garvey RN 2. Non-Specific Active Suici jaya [...] It is not the complete legal health record.[facility]
--- NOTE | ~2025-07-27 | NM_ITS ---
Lexiscan Myocardial perfusion study Indication: Shortness of breath, palpitations Technique: The patient was brought in for a Lexiscan perfusion study on 07/27/2025 and was injected 0.4 mg of Lexiscan intravenously. Within a minute of this injection 25 mCi of sestamibi was given intravenously. Images were obtained using the SPECT gamma camera interlaced with the gating device. Images were obtained in supine position. Resting perfusion study was performed on 07/30/2025. Patient was administered 25 mCi of sestamibi intravenously at rest. Images were then obtained in supine position. Total DLP 94 mGy-cm. Images were processed with the software and compared side to side in short axis, horizontal long axis and vertical long axis views. Findings: Raw aquisition reviewed. Arms by the patient's side. The stress perfusion study showed diminished tracer uptake in the distal part of inferior wall, inferolateral wall. There is improvement with CT attenuation correction and hence could have components of diaphragmatic attenuation artifact. The gated study shows normal LV systolic function with calculated LVEF of 61%. LV cavity is normal in size. The gated study shows normal wall thickening and contraction of segments. Resting study shows diminished tracer uptake in the distal part of anterior septum. Improvement with CT attenuation correction suggestive of artifactual components. Gating at rest reveals reduced contractility in the distal part of septum with ejection fraction at 59%. The findings are consistent with mixed appearing perfusion defect in the inferior wall, inferolateral wall with partially preserved contractility. NM/NM gilma perf SPECT rest & str Impression: 1. Myocardial perfusion imaging study shows possible mixed ischemia/infarct pattern in the inferior/inferolateral wall. 2. Gated LVEF is 61% during stress and 59% during rest. 3. Transient ischemic dilatation not present. EKG component of the test reported separately. Electronically signed by: Augie Hutchins MD 07/31/2025 10:41 AM EDT
--- NOTE | 2025-07-27 09:51 | CA_ITS ---
Acquisition Time: 2025-07-27 10:40:03 Total Exercise Time: 00:02:00 Test Indications: Dyspnea,Palpitations Medications: Protocol: LEXISCAN Max HR: 111 BPM 79% of Pred: 140 BPM Max BP: 120/80 mmHG Max Work Load: 1.0 METS Pharmacological stress test with Lexiscan while pt marches in his chair, with reports of lightheadedness, with isolated PVCs, with normotensive response to injection. Nondiagnostic EKG for ischemia. In recovery, pt treated with IVP Aminophylline 75 mg to reverse Lexiscan after which pt feeling back to baseline. Nuclear images pending. Test reviewed with Dr. Ledesma. Referred By: Herson Ledesma Electronically Signed By: Joel Sandoval
--- OUTSIDE RECORDS SUMMARY | 2025-07-27 11:03 | XMS_ITS | Patient Health Record ---
Author Organization [facility] Address [address] [place] [address] Care Team Providers Care Cannon Crewmember Name Role Phone Juan Padilla Unavailable [phone] Reason For Referral No Information Plan Of Treatment No Information
--- OUTSIDE RECORDS SUMMARY | 2025-07-27 11:04 | XMS_ITS | Clinical Summary ---
Author Organization [facility] Address [address] [address] Phone Care Team Providers Care Sample Hand Name Role Phone Pcp, Unknown Primary Care [...] Active ferrous sulfate 325 mg (65 mg [place] iron) EC tablet Take 325 mg by [...] ecorded Are you denied basic needs s [facility] as food, clothing, or medical care? No 12/15/2024 In the past 12 months have y ou been in a relationship with a person who hurts, threatens, or tries to control you? No 12/15/2024 Are you denied basic needs s [facility] as food, clothing, or medical care? No [...] VACCINE (1 - 1-dose 75+ series) 2019 INFLUENZA VACCINE (#1) 2025 8, 10/18/1997 COVID-19 VACCINE ( - 2023-2 5 season) 2025 CREATININE LEVEL 12/15/2025 12/15/2024, 03/29/2018 POTASSIUM LEVEL [...] EST) SODIUM 130(L) 133 - 146 mmol/L [facility] CHLORIDE 94(L) 96 - 108 mmol/L [facility] POTASSIUM 3.9 3.3 - 5.1 mmol/L [facility] CO2 26 21 - 35 mmol/L [facility] BUN 8 6 - 19 mg/dL [facility] CREATININE 0.40(L) 0.5 - 1.5 mg/dL [facility] GLUCOSE 381(H) 70 - 99 mg/dL [facility] CALCIUM 8.6 8.4 - 10.3 mg/dL [facility] EGFR 110 >59 mL/min/1.7 3m2 [facility] Comment:Estimated glomerular filtration rate calculated using the CKD-EPI refit equation. ANION GAP 14 10 - 20 mmol/L [facility] Blood 12/15/2024 3:10 PM EST 12/15/2024 3:15 PM EST Johnny Stout MD LAB BLOOD ORDERABLES Melody alvarenga Result [facility] [address] [place] [address] from Last 3 Months or Most Recently Relevant to Health Maintenance Insurance [place] P[place] BLUE REPLACEMENT [facility] MEDICARE PPO BLUE REPLACEMENT Member Subscriber Plan / Payer (Ef fective 2009-Present) Name:Bernardino Rucker Relation to Subscriber:Self Name:Bernardino Rucker Payer ID:[id number] (NAIC) Type:Medicare Address: [facility] [id number] [facility] MEDICARE PPO BLUE REPLACEMENT [place] BLUE REPLACEMENT [facility] MEDICARE PPO BLUE [place]AC[place] [address] MEDICARE PPO BLUE REPLACEMENT Member Subscriber Plan / Payer ( fective 2009-Present) Name:Anna Marie Ruckerdon Relation to Subscriber:Self Name:Bernardino Rucker Payer ID:[id number] (NAIC) Type:Medicare Address: [facility] [id number] [facility] MEDICARE PPO BLUE REPLACEMENT [place] [address] [place] BLUE REPLACEMENT [facility] MEDICARE PPO BLUE REPLACEMENT [facility] Care Teams Sample Hand Relationship Specialty Start Date End Date Pcp, Unknown PCP - General 12/18/24 Additional Source Comments The information contained in this document represents components of the legal health record. It is not the complete legal health record.[facility]
== END ==
LOC: HO.CARD 09:49
PROVIDERS: Visit Provider Internal Medicine Cardiovascular Disease
DX: R06.02 Shortness of breath (principal); I44.7 Left bundle-branch block, unspecified
CPT/HCPCS: 78452; 93017; A9500; J0280; J2785

== ENCOUNTER → 2025-07-27 09:51 | Outpatient (BNV) | payer OTHER, SELFPAY | DX: R06.02 Shortness of breath (principal); R00.2 Palpitations; I25.5 Ischemic cardiomyopathy | CPT/HCPCS: 78452 ==

== ENCOUNTER 2025-08-28 14:36 | Outpatient (AMB) | payer OTHER, SELFPAY ==
--- OUTSIDE RECORDS SUMMARY | 2011-03-19 | XMS_ITS | Encounter Summary ---
Author Organization [facility] Address [address] [facility] [address] [place] [phone] Phone Care Team Providers Care Edging Supervisor Name Role Phone Unavailable Primary Care Provider Unavailabl e Reason for Visit * Auth/Cert (Routine) Specialty Diagnoses / Procedures Referred By Swapnil t Referred To Contact Referral ID Status Reason Start Date Expiration Date Visits Re quested Visits Authorized [id number] 1 1 Encounter Details Date Type Department Care Team (Late st Contact Info) Description 03/19/2011 Hospital Encounter [facility],Outside Imaging [address] [place] [address] Unknown, Unknown, MD Social History Tobacco Use [...] 12/15/2024 1:39 PM Sofia Garvey RN * [place] Suicide Severity Rating Scale (Screener/Recent Self-Report) Question [...] is not the complete legal health record.[facility]
--- NOTE | 2025-08-28 14:41 | MHC.OFFVIS ---
Vital Signs 08/28/25 14:43 Height 5 ft 8 in Weight 182 lb 15.739 oz BMI 27.8 BP 110/60 Blood Pressure Location Lt brachial Position Sitting Pulse 72 Intake Visit Reasons: f/up testing Intake Note: Follow-up after testing feeling good Linux Network Engineer Required: No Allergies No Known Allergies Allergy (Verified 01/20/21 10:36) Medication List - Last Reconciled 08/28/25 by Herson Ledesma MD aspirin (Adult Low Dose Aspirin) 81 mg PO DAILY atorvastatin 10 mg PO DAILY divalproex 500 mg PO ONCE insulin glargine (Lantus Solostar U-100 Insulin) 30 units subcut QPM lisinopril 2.5 mg PO DAILY metoprolol succinate ER 25 mg PO DAILY HPI Comments Details: Bernardino comes for follow-up. Underwent a myocardial perfusion imaging which was suggestive of inferolateral mixed ischemia/infarction pattern. Echocardiogram showed preserved EF. Holter monitor showed rare PACs and PVCs. He said he is not as short of breath as before. Denies any exertional chest pain. Was started on metoprolol therapy and aspirin therapy and advised a coronary CTA which she is still waiting to hear from [facility]. He said he has palpitation symptoms have improved [facility] Medical History Hernia Hypertension Anxiety High cholesterol Family History Mother No problems noted. Social History Alcohol intake: never Patient Tobacco Use Status: Never used Tobacco Current occupational status: retired Review of Systems Const Denies chills, Denies fatigue, Denies fever(s), Denies frequent falls, Denies weakness, Denies weight gain and Denies weight loss ENT Denies dizziness Card Denies chest pain, Denies leg edema, Denies lightheadedness, Denies palpitations, Denies dyspnea, Denies dyspnea on exertion, Denies orthopnea and Denies other (loss of consciousness) Resp Denies cough, Denies dyspnea and Denies dyspnea on exertion GI Denies hematochezia and Denies change in stool character Musc Denies abnormal gait, Denies muscle weakness, Denies numbness, Denies radiating pain into limb and Denies tingling Neuro Denies abnormal gait, Denies dizziness, Denies frequent falls, Denies numbness, Denies tingling and Denies weakness Endo Denies fatigue and Denies palpitations Physical Exam Vital Signs: Last Vital Signs Pulse 72 08/28/25 14:43 BP 110/60 08/28/25 14:43 BMI result Body Mass Index 27.8 Const General: cooperative, comfortable, no acute distress, alert and awake Nutritional Appearance: overweight Orientation/consciousness: patient oriented x3 Limitations: no limitations HEENT Head: Yes normocephalic and Yes atraumatic Neck Neck: Yes trachea midline, Yes supple and Yes no JVD Resp Effort & Inspection: normal respiratory effort Auscultation: clear to auscultation bilaterally Cardio Jugular venous distension: no JVD Palpation: normal PMI Rate: regular rate Rhythm: regular rhythm Heart sounds: S1 normal heart sound present, S2 normal heart sound present, no click, no gallops and no murmurs GI Auscultation: normal bowel sounds Skin General skin exam: no rashes or lesions noted Neuro General: patient oriented x3 and no focal motor deficits Extrem General: Yes no clubbing, cyanosis or edema Psych Appearance: grossly normal Assessment & Plan Assessment & Plan (1) Short of breath on exertion: Code(s): R06.02 - Shortness of breath Category: Medical Plan: Shortness of breath on exertion this elderly gentleman with history of diabetes insulin requiring as well as hypertension with left bundle-branch block which is new with abnormal nuclear stress test. Need further anatomic evaluation with coronary CTA. This is scheduled in near future. The rationale for coronary CTA was discussed with him. Advised to start low-dose aspirin therapy. Continue statin therapy with target goal LDL less than 70 mg/dL. Continue with metoprolol therapy. Advised to call me with worsening symptoms. Advised to seek emergency care if he develops significant symptoms at rest. Will follow up in the clinic in 6 months time, sooner PRN. Coding Level of Care Code Est Pt Level 4 (53988) Complex EM visit Add On G2211 Diagnoses Short of breath on exertion R06.02
[2025-08-28 14:43] VITALS: BP 110/60; PULSE 72; BMI 27.8
--- OUTSIDE RECORDS SUMMARY | 2025-08-28 17:28 | XMS_ITS | Clinical Summary ---
Author Organization [facility] Address [address] [address] Phone Care Team Providers Care Machine Learning Intern Name Role Phone Pcp, Unknown Primary Care [...] Active ferrous sulfate 325 mg (65 mg [place] iron) EC tablet Take 325 mg by [...] ecorded Are you denied basic needs s [facility] as food, clothing, or medical care? No 12/15/2024 In the past 12 months have y ou been in a relationship with a person who hurts, threatens, or tries to control you? No 12/15/2024 Are you denied basic needs s [facility] as food, clothing, or medical care? [...] Health Maintenance Due Date Last Done Comments VALPROIC ACID (DEPAKENE) LEVEL 1944 DEPRESSION SCREENING 1956 PNEUMOCOCCAL VACCINES (50+ years) (1 of 1 - PCV) 1994 RSV VACCINE (1 - 1-dose 75+ series) 2019 INFLUENZA VACCINE (#1) 2025 8, 10/18/1997 COVID-19 VACCINE ( - 2024-2 6 season) 2025 CREATININE LEVEL 12/15/2025 12/15/2024, 03/29/2018 [...] EST) SODIUM 130(L) 133 - 146 mmol/L [facility] CHLORIDE 94(L) 96 - 108 mmol/L [facility] POTASSIUM 3.9 3.3 - 5.1 mmol/L [facility] CO2 26 21 - 35 mmol/L [facility] BUN 8 6 - 19 mg/dL [facility] CREATININE 0.40(L) 0.5 - 1.5 mg/dL [facility] GLUCOSE 381(H) 70 - 99 mg/dL [facility] CALCIUM 8.6 8.4 - 10.3 mg/dL [facility] EGFR 110 >59 mL/min/1.7 3m2 [facility] Comment:Estimated glomerular filtration rate calculated using the CKD-EPI refit equation. ANION GAP 14 10 - 20 mmol/L [facility] Blood 12/15/2024 3:10 PM EST 12/15/2024 3:15 PM EST us Johnny Stout MD LAB BLOOD ORDERABLES Melody alvarenga Result [facility] [address] [place] [address] from Last 3 Months or Most Recently Relevant to Health Maintenance Insurance [place] BLUE REPLACEMENT [facility] [place] [address] MEDICARE PPO BLUE REPLACEMENT [facility] MEDICARE PPO BLUE REPLACEMENT MEDICARE PPO BLUE REPLACEMENT Member Subscriber Plan / Payer (Ef fective 2009-Present) Name:Bernardino Rucker Relation to Subscriber:Self Name:Bernardino Ruckre Payer ID:[id number] (NAIC) Type:Medicare Address: [facility] [id number] [facility] MEDICARE PPO BLUE REPLACEMENT [facility] MEDICARE PPO BLUE REPLACEMENT [facility] MEDICARE PPO BLUE REPLACEMENT [place] [address] [facility] MEDICARE PPO BLUE [place] [address] [facility] MEDICARE PPO BLUE REPLACEMENT [facility] Care Teams Machine Learning Intern Relationship Specialty Start Date End Date Pcp, Unknown PCP - General 12/18/24 Additional Source Comments The information contained in this document represents components of the legal health record. It is not the complete legal health record.[facility]
--- OUTSIDE RECORDS SUMMARY | 2025-08-28 17:28 | XMS_ITS | Patient Health Record ---
Author Organization [facility] Address [address] [place] [address] Care Team Providers Care Glass Blower Helper Name Role Phone Juan Padilla Unavailable [phone] Reason For Referral No Information Plan Of Treatment No Information
== END 2025-08-28 14:58 | disposition home or self-care (01) ==
LOC: HO.HCS 14:36
PROVIDERS: Referring Provider Internal Medicine Cardiovascular Disease; Visit Provider Internal Medicine Cardiovascular Disease
DX: R06.02 Shortness of breath (principal)
CPT/HCPCS: 99214; G2211

== ENCOUNTER → 2025-08-28 14:36 | Outpatient (BNVA) | payer OTHER, SELFPAY | PROVIDERS: Visit Provider Internal Medicine Cardiovascular Disease | DX: Z71.2 Person consulting for explanation of examination or test findings (principal); R06.02 Shortness of breath; E11.9 Type 2 diabetes mellitus without complications; Z79.4 Long term (current) use of insulin; I10 Essential (primary) hypertension; I44.7 Left bundle-branch block, unspecified; R00.2 Palpitations | CPT/HCPCS: 99212 ==

== ENCOUNTER 2025-09-10 11:59 | Outpatient (REF) | payer OTHER, SELFPAY ==
--- OUTSIDE RECORDS SUMMARY | 2011-03-19 | XMS_ITS | Encounter Summary ---
Author Organization [facility] Address [address] [facility] [address] [place] [address] Phone Care Team Providers Care Correspondence Review Clerk Name Role Phone Unavailable Primary Care Provider Unavailabl e Reason for Visit * Auth/Cert (Routine) Specialty Diagnoses / Procedures Referred By Swapnil t Referred To Contact Referral ID Status Reason Start Date Expiration Date Visits Re quested Visits Authorized [id number] 1 1 Encounter Details Date Type Department Care Team (Late st Contact Info) Description 03/19/2011 Hospital Encounter [facility],Outside Imaging [address] [place], [place] [phone] Unknown, Unknown, MD Social History Tobacco Use [...] 12/15/2024 1:39 PM Sofia Garvey RN * [place] Suicide Severity Rating Scale (Screener/Recent Self-Report) Question [...] It is not the complete legal health record.[facility]
[2025-09-10 14:33] LABS: Anion Gap 11 (12-20); Blood Urea Nitrogen 13 mg/dL (9-16); Calcium 9.0 mg/dL (8.4-10.2); Carbon Dioxide 28 mmol/L (22-29); Chloride 105 mmol/L (96-108); Estimated Glomerular Filt Rate > 60; Potassium 4.1 mmol/L (3.3-5.1); Sodium 140 mmol/L (135-145)
--- OUTSIDE RECORDS SUMMARY | 2025-09-10 15:32 | XMS_ITS | Clinical Summary ---
Author Organization [facility] Address [address] [address] Phone Care Team Providers Care Voice Data Communications Engineer Name Role Phone Pcp, Unknown Primary Care [...] Active ferrous sulfate 325 mg (65 mg [place] iron) EC tablet Take 325 mg by [...] ecorded Are you denied basic needs s [facility] as food, clothing, or medical care? No 12/15/2024 In the past 12 months have y ou been in a relationship with a person who hurts, threatens, or tries to control you? No 12/15/2024 Are you denied basic needs s [facility] as food, clothing, or medical care? No [...] HOSPITAL CHLORIDE 94(L) 96 - 108 mmol/L [facility] POTASSIUM 3.9 3.3 - 5.1 mmol/L [facility] CO2 26 21 - 35 mmol/L [facility] BUN 8 6 - 19 mg/dL [facility] CREATININE 0.40(L) 0.5 - 1.5 mg/dL [facility] GLUCOSE 381(H) 70 - 99 mg/dL [facility] CALCIUM 8.6 8.4 - 10.3 mg/dL [facility] EGFR 110 >59 mL/min/1.7 3m2 [facility] Comment:Estimated glomerular filtration rate calculated using the CKD-EPI refit equation. ANION GAP 14 10 - 20 mmol/L [facility] Blood 12/15/2024 3:10 PM EST 12/15/2024 3:15 PM EST us Johnny Stout MD LAB BLOOD ORDERABLES Melody alvarenga Result [facility] [address] [place] [address] from Last 3 Months or Most Recently Relevant to Health Maintenance Insurance [place] BLUE REPLACEMENT [facility] [place] [address] MEDICARE PPO BLUE REPLACEMENT [facility] MEDICARE PPO BLUE REPLACEMENT MEDICARE PPO BLUE REPLACEMENT Member Subscriber Plan / Payer (Ef fective 2009-Present) Name:Bernardino Rucker Relation to Subscriber:Self Name:Bernardino Rucker Payer ID:[id number] (NAIC) Type:Medicare Address: [facility] [id number] [facility] MEDICARE PPO BLUE REPLACEMENT [facility] MEDICARE PPO [facility]UE REPLACEMENT [facility] MEDICARE PPO BLUE REPLACEMENT [place] [address] [address] [facility] MEDICARE PPO BLUE [place] [address] [address] [facility] MEDICARE PPO BLUE REPLACEMENT [facility] Care Teams Voice Data Communications Engineer Relationship Specialty Start Date End Date Pcp, Unknown PCP - General 12/18/24 Additional Source Comments The information contained in this document represents components of the legal health record. It is not the complete legal health record.[facility]
--- OUTSIDE RECORDS SUMMARY | 2025-09-10 15:32 | XMS_ITS | Patient Health Record ---
Author Organization [facility] Address [address] [place] [address] Care Team Providers Care Ladle Operator Name Role Phone Juan Padilla Unavailable [phone] Reason For Referral No Information Plan Of Treatment No Information
== END 2025-09-10 12:00 | disposition home or self-care (01) ==
LOC: HO.LAB 11:59
PROVIDERS: Visit Provider Internal Medicine Cardiovascular Disease
DX: R94.39 Abnormal result of other cardiovascular function study (principal); R00.2 Palpitations; I44.7 Left bundle-branch block, unspecified; R06.02 Shortness of breath
CPT/HCPCS: 36415; 80048